=== PATIENT | male | born 1950 | race Caucasian/White ===

== ENCOUNTER 2024-01-15 09:45 | Emergency (ER) | payer MEDICARE, SELFPAY ==
--- NOTE | ~2024-01-15 | CT_ITS ---
EXAMINATION: CT head/brain wo IV con CLINICAL INFORMATION: Reason for Exam dizziness, vomiting COMPARISON: None available TECHNIQUE: Contiguous axial imaging was performed from the skull base to vertex without intravenous contrast. Sagittal and coronal reformatted images were obtained. This CT examination was performed using dose optimization techniques as appropriate, variously including the following: * Automated exposure control * Adjustment of mA and/or kV according to patient size (this includes techniques or standardized protocols for targeted exams where dose is matched to indication/reason for exam; i.e. extremities or head) Use of iterative reconstruction technique DLP: 735.4 mGy-cm mGy-cm FINDINGS: There is no evidence of acute intracranial hemorrhage. No mass-effect or ventricular shift is noted. No acute, territorial loss of parikh-white differentiation. Hypodensity along the left caudate head, likely chronic area of lacunar infarction. The ventricles and sulci are appropriate in size and configuration for the patient's stated age. Periventricular and subcortical white matter hypodensity is nonspecific but likely represents chronic microvascular ischemic change. No depressed calvarial fracture. Polypoid mucosal thickening throughout the partially visualized paranasal sinuses. The mastoid air cells are clear. CT/CT head/brain wo IV con IMPRESSION: No acute intracranial hemorrhage or territorial loss of parikh-white differentiation. Hypodensity/cystic focus along the left caudate head is indeterminate but may represent a chronic area of lacunar infarction with cystic encephalomalacia.
--- NOTE | ~2024-01-15 | CT_ITS ---
EXAMINATION: CT ABDOMEN AND PELVIS WITH CONTRAST CLINICAL INFORMATION: Intractable vomiting COMPARISON: None available. TECHNIQUE: Multidetector volumetric images were obtained from the superior aspect of the liver through the pubic symphysis following administration 85 mL of Omnipaque 350 intravenous contrast. Sagittal and coronal reformatted images were obtained on the technologist's workstation. Oral contrast: Yes This CT examination was performed using dose optimization techniques as appropriate, variously including the following: *Automated exposure control *Adjustment of mA and/or kV according to patient size (this includes techniques or standardized protocols for targeted exams where dose is matched to indication/reason for exam; i.e. extremities or head) *Use of iterative reconstruction technique DLP: 794 mGy-cm FINDINGS: LUNG BASES: The visualized lung bases are unremarkable. LIVER, GALLBLADDER, AND BILIARY TREE: Fatty enlarged liver. No focal liver lesion. Liver normal in contour. No biliary duct dilatation. Gallstone. Bladder otherwise normal. PANCREAS: Unremarkable. SPLEEN: Unremarkable. ADRENAL GLANDS: Unremarkable. KIDNEYS AND URETERS: The kidneys are normal in size, shape, and attenuation. No hydronephrosis, hydroureter, or calculi seen. Bilateral renal cysts. No imaging follow-up recommended. No perinephric stranding. BLADDER: Unremarkable. GASTROINTESTINAL TRACT: Mild diverticulosis of the colon. No evidence of diverticulitis. The small and large bowel are unremarkable. The appendix is unremarkable. The stomach is normal. There is question mild wall thickening of the distal thoracic esophagus. ABDOMINAL WALL: Left inguinal hernia containing fat. LYMPH NODES: Normal. VASCULAR: Unremarkable. PELVIC VISCERA: Unremarkable. OSSEOUS STRUCTURES: Degenerative changes of the spine and hip joints. CT/CT abdomen pelvis w IV con IMPRESSION: Question mild wall thickening of the distal thoracic esophagus. Diverticulosis of the colon. No evidence of diverticulitis. Enlarged fatty liver. Gallstone. Left inguinal hernia containing fat. Fleischner guidelines were followed.
[2024-01-15 09:46] VITALS: BP 172/98; PULSE 84; O2SAT 94
[2024-01-15 09:56] VITALS: BP 160/52; PULSE 60; RESP 19; TEMP 36.6; O2SAT 94; BMI 34.5
--- NOTE | 2024-01-15 10:03 | ECG_ITS ---
Test Reason : abd pain Blood Pressure : / mmHG Vent. Rate : 056 BPM Atrial Rate : 056 BPM P-R Int : 170 ms QRS Dur : 098 ms QT Int : 456 ms P-R-T Axes : 029 024 041 degrees QTc Int : 440 ms Sinus bradycardia Otherwise normal ECG No previous ECGs available Referred By: Sherita Barnes Electronically Signed By:ELVIA RENAE MD
[2024-01-15] MEDS: ondansetron HCL 4 MG/2 ML VIAL IVPUSH (10:11)
[2024-01-15 10:17] LABS: MANUAL DIFF FLAG NO
[2024-01-15 10:18] LABS: Hematocrit 36.4 % (42.0-52.0); Hemoglobin 12.4 g/dl (14.0-18.0); Mean Corpuscular HGB Conc 34.1 g/dl (31.0-36.0); Mean Corpuscular Hemoglobin 28.3 pg (27.0-33.0); Mean Corpuscular Volume 83.1 fL (80.0-98.0); Red Blood Count 4.38 X10*6/uL (4.60-5.80); White Blood Count 7.1 X10*3/uL (4.8-10.8)
[2024-01-15 10:19] LABS: Basophils Percent Auto 0.6 % (0-2); Eosinophils Absolute Auto 0.2 X10*3/uL (0.0-0.4); Eosinophils Percent Auto 2.8 % (0-4); Imm Gran Abs Auto 0.06 X10*3/uL (0.00-0.03); Imm Gran Pct Auto 0.8 % (0.0-0.4); Mean Platelet Volume 10.8 fL (9.4-12.4); Monocytes Absolute Auto 0.6 X10*3/uL (0.1-1.2); Monocytes Percent Auto 7.9 % (2-11); Neutrophils Absolute Auto 4.3 x10*3/uL (2.0-8.3); Neutrophils Percent Auto 59.9 % (45-73); Platelet Count 209 X10*3/uL (160-400); Red Cell Distribution Width 13.2 % (11.0-16.0)
[2024-01-15] MEDS: 0.9 % Sodium Chloride 1,000 ML 999 ML IV (10:19)
[2024-01-15 10:31] LABS: INTERNATIONAL NORM RATIO 0.9 (0.9-1.1); Prothrombin Time 11.4 SEC (11.1-13.3)
--- NOTE | 2024-01-15 10:35 | ED_ITS ---
HPI - Nausea/Vomiting/Diarrhea General Chief complaint: Nausea/Vomiting/Diarrhea Stated complaint: VOMITING, COMING FROM [facility] PER EMS Time Seen by Provider: 01/15/24 10:04 Source: patient, family and EMS Limitations: no limitations History of Present Illness HPI Narrative: Patient is a 73-year-old male who presents to the emergency department via EMS with his at bedside. Reportedly 1 hour prior to arrival he began feeling nauseous and having multiple episodes of vomiting while at conf[employer]ian[employer]. He reports 6-8 episodes of emesis with his food from breakfast denies any hematemesis. Denies recent ill symptoms or known sick contacts. Denies fevers, chills, chest pain, shortness of breath, abdominal pain, genitourinary symptoms, constipation. He reports a history of chronic loose watery diarrhea secondary to his iron that he takes for anemia and reports chronic black stools without any acute change. He denies any dizziness or lightheadedness. Related Data Previous Rx's ?Medication ?Instructions ?Recorded ondansetron 4 mg disintegrating 4 mg PO Q8H PRN nausea and 01/15/24 tablet vomiting #10 tabs Allergies Allergy/AdvReac Type Severity Reaction Status Date / Time No Known Allergies Allergy Verified 01/15/24 09:58 Review of Systems 2 Review of Systems: Yes all other systems are reviewed and are negative PMFSH Past Medical History Attestation statement: The following information was validated with the patient. Source: old records reviewed Social History Social History Smoked in Last 30 Days: No Use of substances other than those prescribed or required for medical reasons: No Advance Directives: No Advance Directives Information Provided: Yes Do you have a plan to hurt others: No Plan Physical Exam 2 Vital Signs: Vital Signs: Last Vital Signs Temp 98.5 F 01/15/24 14:14 Pulse 60 01/15/24 14:14 Resp 13 01/15/24 14:14 BP 136/52 L 01/15/24 14:14 Pulse Ox 97 01/15/24 14:14 O2 Del Method Room Air 01/15/24 14:14 BMI result Body Mass Index 34.5 Appearance: Alert.?Oriented to person, place and time. No acute distress.?Normal affect. Eyes: Pupils equal, round and reactive to light.? ENT: Pharynx normal.?? Neck: Normal inspection.? Neck supple.?? CVS: Heart sounds normal. Normal heart rate and rhythm.? Pulses normal.?? Respiratory: No respiratory distress.? Lung sounds clear to auscultation bilaterally?? Abdomen: Soft rounded and non-tender. Normoactive bowel sounds. No pulsatile mass.?? Skin: Skin warm and dry.? Normal skin color.? ? Extremities: No lower extremity edema.? Neuro: Moves all extremities spontaneously. Sensation intact bilaterally. Ambulates with normal steady gait. NIH Stroke Scale Time: 10:00 Level of Consciousness: Alert Level of Consciousness Questions: Answers both questions correctly Level of Consciousness Commands: Performs both tasks correctly Best Gaze: Normal Visual: No visual loss Facial Palsy: Normal Motor Arm (Right): No drift Motor Arm (Left): No drift Motor Leg (Right): No drift Motor Leg (Left): No drift Limb Ataxia: Absent Sensory: Normal Best Language: No aphasia Dysarthia: Normal Extinction and Inattention: No abnormality Score: 0 Course Reevaluation(s) Reevaluation #1: CT of the abdomen and pelvis with radiologist impression for question of mild wall thickening of the distal esophagus, diverticulosis but no diverticulitis, fatty liver, cholelithiasis, and left inguinal hernia containing fat. Reviewed with ED attending Dr. Mann regarding concern for possible esophagitis, at this time patient is asymptomatic, admits to infrequent acid reflux, he did however have multiple episodes of vomiting prior to arrival which may have resulted in these findings. Earlier he declined dizziness, however now endorsing significant dizziness as the onset of symptoms followed by multiple episodes of emesis. Reports this was worse with his eyes open with position changing. Reports a history of vertigo for which he has taken meclizine in the past. He has also been experiencing gradually progressive hearing loss for which she is being evaluated outpatient with a specialist. Symptoms have completely resolved at this time. concern for possible posterior circulation stroke/TIA versus BPPV. Obtaining CT of the head for further evaluation as recommended by ED attending Dr. Mann to rule out central causes. Time: 13:09 Reevaluation #2: CT head without acute intracranial hemorrhage. Hypodensity/cystic focus along the left caudate head indeterminate but may represent chronic lacunar infarct cystic encephalomalacia. I reviewed these findings with ED attending Dr. Mann, who recommends admission for further evaluation concern for TIA/ cerebellar stroke Time: 16:41 Reevaluation #3: Evaluated by Dr. Garcia, hospitalist, does not feel as though patient requires inpatient admission. Patient is requesting to be discharged at this time. Will discharge home, discussed strict return precautions, outpatient follow-up with his primary care provider. All questions were answered. He has ambulatory with a steady gait, has had no further symptoms. Time: 17:13 Medications Administered Discontinued Medications Generic Name Dose Route Start Last Admin Trade Name Foster PRN Reason Stop Dose Admin Sodium Chloride 1,000 mls @ 999 mls/hr 01/15/24 10:15 01/15/24 11:48 Ns IV 01/15/24 11:15 Infused .Q1H1M HOLA Infusion Iohexol 100 ml 01/15/24 11:39 01/15/24 11:39 Iohexol 350 Mg/Ml 100 Ml Infus..Btl IV 01/15/24 11:40 85 ml ONCE ONE Administration Ondansetron HCl 4 mg 01/15/24 10:07 01/15/24 10:11 Ondansetron Hcl 4 Mg/2 Ml Vial IVPUSH 01/15/24 10:08 4 mg ONCE ONE Administration Medical Decision Making Medical Decision Making [facility] Narrative: Patient is a 73-year-old male with reported past medical history of anemia, hypertension, diabetes presenting to emergency department for evaluation of acute onset nausea and vomiting, reporting 6-8 episodes of emesis within 1 hour. Patient's states that he has been generally weak over the past few weeks, patient denies concern for weakness. Overall he appears well, nontoxic, afebrile he is without tachycardia tachypnea or hypoxia. His abdomen is rounded but it is soft, has normoactive bowel sounds, no tenderness upon palpation. No rigidity or guarding. Will obtain CBC to evaluate for leukocytosis/ anemia, CMP and lipase to evaluate for abnormal electrolytes /abnormal renal function/ abnormal hepatic/biliary function, EKG and troponin to evaluate for ischemia/ACS. CT of the abdomen and pelvis, and Urinalysis. Differential Diagnosis Differential Diagnoses: The differential diagnosis associated with the presentation includes (Gastroenteritis, cholecystitis, pancreatitis, viral syndrome, SBO) Admission/Observation Consideration of admission/observation: Escalation of care including admission/observation considered Lab Data [facility] Lab Attestation statement: I reviewed the patient's lab results. CBC is without leukocytosis, mild normocytic anemia that does not meet transfusion criteria. No electrolyte derangement. BUN mildly elevated at 22 with creatinine 1.13, no baseline available for comparison. Non-anion gap hyperglycemia with random glucose of 207. LFTs and lipase are within normal range. 01/15/24 10:07 01/15/24 10:07 Labs: Lab Results 01/15/24 01/15/24 01/15/24 Range/Units 10:07 10:36 12:09 WBC 7.1 (4.8-10.8) X10*3/uL RBC 4.38 L (4.60-5.80) X10*6/uL Hgb 12.4 L (14.0-18.0) g/dl Hct 36.4 L (42.0-52.0) % MCV 83.1 (80.0-98.0) fL MCH 28.3 (27.0-33.0) pg MCHC 34.1 (31.0-36.0) g/dl RDW 13.2 (11.0-16.0) % Plt Count 209 (160-400) X10*3/uL MPV 10.8 (9.4-12.4) fL Immature Gran % (Auto) 0.8 H (0.0-0.4) % Neut % (Auto) 59.9 (45-73) % Lymph % (Auto) 28.0 (20-40) % [place] % (Auto) 7.9 (2-11) % Eos % (Auto) 2.8 (0-4) % Baso % (Auto) 0.6 (0-2) % Lymph # (Auto) 2.0 (1.2-4.9) X10*3/uL [place] # (Auto) 0.6 (0.1-1.2) X10*3/uL Eos # (Auto) 0.2 (0.0-0.4) X10*3/uL Baso # (Auto) 0.0 (0.0-0.2) X10*3/uL Abs Immat Gran (auto) 0.06 H (0.00-0.03) X10*3/uL Absolute Neuts (auto) 4.3 (2.0-8.3) x10*3/uL Absolute Nucleated RBC 0.000 (0.0-0.012) X10*3/uL Nucleated RBC % (auto) 0.0 (0.0-0.2) /100WBC PT 11.4 (11.1-13.3) SEC INR 0.9 (0.9-1.1) Sodium 139 (135-145) mmol/L Potassium 3.7 (3.3-5.1) mmol/L Chloride 102 (96-108) mmol/L Carbon Dioxide 26 (22-29) mmol/L Anion Gap 15 (12-20) BUN 22 H (9-16) mg/dL Creatinine 1.13 (0.5-1.4) mg/dL Estim Creat Clear Calc 73.0 Estimated GFR > 60 POC Glucose 138 H (60-115) mg/dL Random Glucose 207 H (60-115) mg/dL Calcium 10.1 (8.4-10.2) mg/dL Total Bilirubin 0.6 (0.0-1.0) mg/dL Direct Bilirubin 0.2 (0.0-0.5) mg/dL AST 17 (5-37) U/L ALT 15 (0-40) U/L Alkaline Phosphatase 43 (39-117) U/L Troponin I High Sens < 2.7 (<3.5-35.0) ng/L Total Protein 7.4 (6.5-8.0) g/dL Albumin 4.4 (3.5-5.0) g/dL Lipase 20 (8-78) U/L Influenza Type A (PCR) NEGATIVE (Negative) Influenza Type B (PCR) NEGATIVE (Negative) RSV RNA Qual (PCR) NEGATIVE (Negative) SARS-CoV-2 RNA (RT-PCR) NEGATIVE (Negative) Independent Interpretation I performed an independent interpretation of an: EKG Interpretation: Rate: 56 Rhythm:? Sinus bradycardia Normal P waves.? Normal ERICKSON.?? Normal QRS complex.?? ST T wave :??No ST elevation, anterolateral J-point elevation qTC:440 prior studies:? No prior available for review The study has been interpreted contemporaneously by me. Radiology Impression Discussion of test interpretation with radiology: I have reviewed the radiologist's reading. Radiologist Impression: CT/CT abdomen pelvis w IV con IMPRESSION: Question mild wall thickening of the distal thoracic esophagus. Diverticulosis of the colon. No evidence of diverticulitis. Enlarged fatty liver. Gallstone. Left inguinal hernia containing fat. CT/CT head/brain wo IV con IMPRESSION: No acute intracranial hemorrhage or territorial loss of parikh-white differentiation. Hypodensity/cystic focus along the left caudate head is indeterminate but may represent a chronic area of lacunar infarction with cystic encephalomalacia. Independent Historian Clinical information obtained from an independent historian. History obtained from or confirmed by: Spouse and EMS Discharge Plan Discharge Clinical Impression: Dizziness Patient Disposition: Home, Self-Care Additional Instructions: As discussed, your symptoms today are concerning for likely vertigo. Use your meclizine as previously prescribed as needed for dizziness. Zofran as needed for nausea/vomiting. Return back to emergency department any new or worsening symptoms or concerns including persistent dizziness, near passing out or passing out, lightheadedness, chest pain, shortness of breath, difficulty breathing, intractable vomiting, numbness or tingling of the extremities, slurred speech, confusion, weakness. Prescriptions: New ondansetron 4 mg tablet,disintegrating 4 mg PO Q8H PRN (Reason: nausea and vomiting) Qty: 10 0RF Referrals: Physician,Unknown J [Primary Care Provider] - Print Language: Bolivian
[2024-01-15 10:43] LABS: Alanine Aminotransferase 15 U/L (0-40); Albumin Level 4.4 g/dL (3.5-5.0); Alkaline Phosphatase 43 U/L (39-117); Anion Gap 15 (12-20); Aspartate Amino Transferase 17 U/L (5-37); Bilirubin Direct 0.2 mg/dL (0.0-0.5); Bilirubin Total 0.6 mg/dL (0.0-1.0); Blood Urea Nitrogen 22 mg/dL (9-16); Calcium 10.1 mg/dL (8.4-10.2); Carbon Dioxide 26 mmol/L (22-29); Chloride 102 mmol/L (96-108); Estimated Glomerular Filt Rate > 60; Glucose Random 207 mg/dL (60-115); Lipase 20 U/L (8-78); Potassium 3.7 mmol/L (3.3-5.1); Sodium 139 mmol/L (135-145); Total Protein 7.4 g/dL (6.5-8.0)
[2024-01-15 10:58] VITALS: BP 127/45; PULSE 59; RESP 17; TEMP 36.5
[2024-01-15 11:18] LABS: Influenza A PCR NEGATIVE (Negative); Influenza B PCR NEGATIVE (Negative); Resp Syncy Virus RNA Qual PCR NEGATIVE (Negative); SARS COV2 PCR INHOUSE NEGATIVE (Negative)
[2024-01-15] MEDS: iohexoL 350 MG/ML 100 ML INFUS..BTL IV (11:39)
--- NOTE | 2024-01-15 12:01 | PC.NURSE ---
Assumed care of this patient at 1100, patient feeling much better resting quietly on stretcher at this time, waiting for CT scan results, states he ate a large breakfast earlier this am with possibly undercooked potatoes, was washing his car and suddenly became N/V.
[2024-01-15 12:13] LABS: Glucose, Whole Blood 138 mg/dL (60-115)
--- NOTE | 2024-01-15 12:14 | MHC.EDTECH ---
POC completed. Result 138 reported to BAYRON Spaulding.
--- NOTE | 2024-01-15 12:44 | PC.NURSE ---
Trop level pending for some time, called lab to confirm lab was processing, lab confirmed sample is processing.
--- NOTE | 2024-01-15 13:25 | PC.NURSE ---
Called lab again regarding patient's trop level not resulting, spoke to Lakisha, stated trop had not been running, will be processed now and should result in 20 minutes.
[2024-01-15 13:44] LABS: Troponin-I High Sensitivity < 2.7 ng/L (<3.5-35.0)
[2024-01-15 13:52] VITALS: BP 127/46; PULSE 58; RESP 14; O2SAT 98
[2024-01-15 14:14] VITALS: BP 136/52; PULSE 60; RESP 13; TEMP 36.9; O2SAT 97
[2024-01-15 17:29] VITALS: BP 119/50; PULSE 58; RESP 16; TEMP 36.7; O2SAT 95
== END 2024-01-15 17:31 | disposition home or self-care (01) ==
PROVIDERS: Nurse Practitioner Family; Emergency Provider Emergency Medicine
DX: R11.2 Nausea with vomiting, unspecified (principal); R42 Dizziness and giddiness; I10 Essential (primary) hypertension; E11.9 Type 2 diabetes mellitus without complications; D64.9 Anemia, unspecified; Z03.818 Encounter for observation for suspected exposure to other biological agents ruled out
CPT/HCPCS: 0241U; 36415; 70450; 74177; 80048; 80076; 82947; 83690; 84484; 85025; 85610; 93005; 96361; 96374; 99284; 99285; J2405; Q9967

== ENCOUNTER → 2024-01-15 10:03 | Outpatient (BNV) | payer MEDICARE, SELFPAY | PROVIDERS: Emergency Provider Emergency Medicine; Visit Provider Internal Medicine Cardiovascular Disease | DX: R00.1 Bradycardia, unspecified (principal) | CPT/HCPCS: 93010 ==

== ENCOUNTER 2024-03-09 13:42 | Emergency (ER) | payer MEDICARE, SELFPAY ==
[2024-03-09 13:54] VITALS: BP 172/92; PULSE 72; O2SAT 98
[2024-03-09 14:00] VITALS: BP 125/70; PULSE 59; RESP 14; TEMP 36.9; O2SAT 98
[2024-03-09 14:07] VITALS: BP 125/70; PULSE 52; RESP 16; TEMP 36.8; O2SAT 98; BMI 35.0
--- NOTE | 2024-03-09 14:25 | ECG_ITS ---
Test Reason : DIZZINESS Blood Pressure : / mmHG Vent. Rate : 049 BPM Atrial Rate : 049 BPM P-R Int : 186 ms QRS Dur : 100 ms QT Int : 436 ms P-R-T Axes : 026 037 049 degrees QTc Int : 393 ms Sinus bradycardia Normal ECG When compared with ECG of 15-JAN-2024 10:24, No significant change was found Referred By: Jesusita Pinto Electronically Signed By:KENDAL PATINO
[2024-03-09 14:41] LABS: MANUAL DIFF FLAG NO
[2024-03-09 14:45] VITALS: BP 117/55; PULSE 52; RESP 14; O2SAT 96
[2024-03-09] MEDS: ondansetron HCL 4 MG/2 ML VIAL IVPUSH (14:45)
[2024-03-09] MEDS: Meclizine HCl 25 MG TABLET PO (14:45)
[2024-03-09 14:47] LABS: Basophils Absolute Auto 0.1 X10*3/uL (0.0-0.2); Basophils Percent Auto 0.8 % (0-2); Eosinophils Absolute Auto 0.2 X10*3/uL (0.0-0.4); Hematocrit 36.7 % (42.0-52.0); Hemoglobin 12.6 g/dl (14.0-18.0); Imm Gran Abs Auto 0.05 X10*3/uL (0.00-0.03); Imm Gran Pct Auto 0.7 % (0.0-0.4); Lymphocytes Absolute Auto 2.5 X10*3/uL (1.2-4.9); Lymphocytes Percent Auto 35.3 % (20-40); Mean Corpuscular HGB Conc 34.3 g/dl (31.0-36.0); Mean Corpuscular Hemoglobin 28.6 pg (27.0-33.0); Mean Corpuscular Volume 83.4 fL (80.0-98.0); Monocytes Absolute Auto 0.7 X10*3/uL (0.1-1.2); Monocytes Percent Auto 9.6 % (2-11); Neutrophils Absolute Auto 3.6 x10*3/uL (2.0-8.3); Neutrophils Percent Auto 50.6 % (45-73); Platelet Count 196 X10*3/uL (160-400); Red Cell Distribution Width 13.2 % (11.0-16.0); White Blood Count 7.1 X10*3/uL (4.8-10.8)
--- NOTE | 2024-03-09 14:54 | ED.DIZZY ---
HPI - Dizziness General Chief Complaint: Dizziness Stated Complaint: NAUSEA VOMITING UNSTEADY GAIT Time Seen by Provider: 03/09/24 13:54 Source: patient and old records reviewed Mode of arrival: EMS Limitations: no limitations History of Present Illness ED Provider: QUIANA HARRIS Narrative: 74 yo male with PMH of vertigo seen for same in past with negative work up has chronic L hearing loss left ear - presents again today with typical start of lightheadedness then starts to feel very dizzy with nausea. He just had CT head for same January 2024. He denies CP/SOB. He has appointment with ENT next . He notes zofran and meclizine helps him in combination. MD elicited complaint: dizziness Pertinent past history: BPPV Onset (ago): hour(s) (1) Timing: sudden onset Severity: mild Description: lightheadedness Context: change in body position History of similar symptoms: Yes Exacerbating factors: movement/ambulation and change in body position Relieving factors: remaining still and keeping eyes closed Associated symptoms: nausea Related Data Previous Rx's ?Medication ?Instructions ?Recorded ondansetron 4 mg disintegrating 4 mg PO Q8H PRN nausea and 01/15/24 tablet vomiting #10 tabs lorazepam 1 mg tablet (Ativan) 1 mg PO DAILY PRN nausea and 03/09/24 vomiting #10 tabs meclizine 25 mg tablet 25 mg PO TID PRN dizziness #60 tabs 03/09/24 ondansetron 4 mg disintegrating 4 mg PO Q8H PRN nausea and 03/09/24 tablet vomiting #20 tabs Allergies Allergy/AdvReac Type Severity Reaction Status Date / Time No Known Allergies Allergy Verified 03/09/24 14:08 Review of Systems Review of Systems: Constitutional : No Fever, No Chills, No Fatigue ENT/Mouth : No sore throat, No Rhinorrhea Eyes: No Eye Pain, No Swelling, No Redness Cardiovascular : No Chest Pain, No SOB, No Dyspnea on Exertion Respiratory : No Cough, No Sputum Gastrointestinal : pos Nausea, No Vomiting, No Diarrhea, No abdominal Pain Genitourinary : No Dysuria, No Urinary Frequency, No Hematuria, Musculoskeletal : No joint pain, No Myalgias, No Joint Swelling Skin : No Skin Lesions, No rash Neuro : No Weakness, No Numbness, pos Dizziness, no Headache Psych : No Anxiety/Panic, No Depression All other systems reviewed and are negative [facility] Past Medical History Attestation statement: The following information was validated with the patient. Source: old records reviewed Medical History Vertigo Social History Social History Smoked in Last 30 Days: No Use of substances other than those prescribed or required for medical reasons: No Advance Directives: No Advance Directives Information Provided: Yes Do you have a plan to hurt others: No Plan Physical Exam Vital Signs: Vital Signs: Last Vital Signs Temp 98.3 F 03/09/24 14:07 Pulse 52 03/09/24 14:45 Resp 14 03/09/24 14:45 BP 117/55 L 03/09/24 14:45 Pulse Ox 96 03/09/24 14:45 O2 Del Method Room Air 03/09/24 14:45 BMI result Body Mass Index 35.0 Appearance: Alert. Oriented X3. No acute distress. Eyes: Pupils equal, round and reactive to light. ENT: Pharynx normal. TMs normal bilaterally Neck: Normal inspection. Neck supple. CVS: Normal heart rate and rhythm. Pulses normal. Respiratory: No respiratory distress. Breath sounds normal. Abdomen: Soft and non-tender. Skin: Skin warm and dry. Normal skin color. Normal skin turgor. Extremities: No lower extremity edema. No calf ttp Neuro: Oriented X 3. No motor deficit. No sensory deficit. Medications Administered Discontinued Medications Generic Name Dose Route Start Last Admin Trade Name Freq PRN Reason Stop Dose Admin Meclizine HCl 25 mg 03/09/24 14:25 03/09/24 14:45 Meclizine Hcl 25 Mg Tablet PO 03/09/24 14:26 25 mg ONCE ONE Administration Ondansetron HCl 4 mg 03/09/24 14:25 03/09/24 14:45 Ondansetron Hcl 4 Mg/2 Ml Vial IVPUSH 03/09/24 14:26 4 mg ONCE ONE Administration Medical Decision Making Medical Decision Making [facility] Narrative: 74 yo male with PMH of vertigo here with typical bout c/o nausea and feeling lightheaded has no focal deficits no CP/SOB no other neuro symptoms at this time EKG, basic labs, IV zofran and meclizine. Doubt posterior stroke given on other symptoms and similar work up in past - just had CT scan with likely old stroke Differential Diagnosis Differential Diagnoses: The differential diagnosis associated with the presentation includes vertigo - longstanding hx of same in past worse with movements seems more peripheral Admission/Observation Consideration of admission/observation: Escalation of care including admission/observation considered feels better stable for DC Lab Data [facility]DM Lab Attestation statement: I reviewed the patient's lab results. 03/09/24 14:37 03/09/24 14:59 Labs: Lab Results 03/09/24 03/09/24 Range/Units 14:37 14:59 WBC 7.1 (4.8-10.8) X10*3/uL RBC 4.40 L (4.60-5.80) X10*6/uL Hgb 12.6 L (14.0-18.0) g/dl Hct 36.7 L (42.0-52.0) % MCV 83.4 (80.0-98.0) fL MCH 28.6 (27.0-33.0) pg MCHC 34.3 (31.0-36.0) g/dl RDW 13.2 (11.0-16.0) % Plt Count 196 (160-400) X10*3/uL MPV 12.0 (9.4-12.4) fL Immature Gran % (Auto) 0.7 H (0.0-0.4) % Neut % (Auto) 50.6 (45-73) % Lymph % (Auto) 35.3 (20-40) % [place] % (Auto) 9.6 (2-11) % Eos % (Auto) 3.0 (0-4) % Baso % (Auto) 0.8 (0-2) % Lymph # (Auto) 2.5 (1.2-4.9) X10*3/uL [place] # (Auto) 0.7 (0.1-1.2) X10*3/uL Eos # (Auto) 0.2 (0.0-0.4) X10*3/uL Baso # (Auto) 0.1 (0.0-0.2) X10*3/uL Abs Immat Gran (auto) 0.05 H (0.00-0.03) X10*3/uL Absolute Neuts (auto) 3.6 (2.0-8.3) x10*3/uL Absolute Nucleated RBC 0.000 (0.0-0.012) X10*3/uL Nucleated RBC % (auto) 0.0 (0.0-0.2) /100WBC Sodium 140 (135-145) mmol/L Potassium 3.7 (3.3-5.1) mmol/L Chloride 104 (96-108) mmol/L Carbon Dioxide 26 (22-29) mmol/L Anion Gap 14 (12-20) BUN 25 H (9-16) mg/dL Creatinine 1.09 (0.5-1.4) mg/dL Estim Creat Clear Calc 75.1 Estimated GFR > 60 Random Glucose 112 (60-115) mg/dL Calcium 10.0 (8.4-10.2) mg/dL Troponin I High Sens < 2.7 (<3.5-35.0) ng/L Independent Interpretation I performed an independent interpretation of an: EKG Interpretation: Rate: 49 Rhythm: sinus bradycardia [place]: normal Normal P waves. Normal ERICKSON. Normal QRS complex. ST T wave : normal no MARISABEL qTC: 419 prior studies: hx of bradycardia in the past The study has been interpreted contemporaneously by me. . Independent Historian Clinical information obtained from an independent historian. History obtained from or confirmed by: Spouse and EMS External Record Review External record reviewed: Inpatient record Prescription Management I considered prescription management with: Other Discharge Plan Discharge Clinical Impression: Dizziness Patient Disposition: Home, Self-Care Instructions: Dizziness (ED) Additional Instructions: take meclizine in AM for next 5 days then as needed zofran can be taken daily as well return for worsening symptoms or concerns consider our physical therapy department may need referral from PCP take the ativan if no improvement from other medications and severe [phone] physical therapy at [facility] Prescriptions: New meclizine 25 mg tablet 25 mg PO TID PRN (Reason: dizziness) Qty: 60 1RF ondansetron 4 mg tablet,disintegrating 4 mg PO Q8H PRN (Reason: nausea and vomiting) Qty: 20 1RF lorazepam [Ativan] 1 mg tablet 1 mg PO DAILY PRN (Reason: nausea and vomiting) Qty: 10 0RF No Action ondansetron 4 mg tablet,disintegrating 4 mg PO Q8H PRN (Reason: nausea and vomiting) Qty: 10 0RF Print Language: [place]
[2024-03-09 15:02] LABS: Troponin-I High Sensitivity < 2.7 ng/L (<3.5-35.0)
[2024-03-09 15:18] LABS: Anion Gap 14 (12-20); Blood Urea Nitrogen 25 mg/dL (9-16); Carbon Dioxide 26 mmol/L (22-29); Chloride 104 mmol/L (96-108); Creatinine Clr Calc Pharmacy 75.1; Estimated Glomerular Filt Rate > 60; Glucose Random 112 mg/dL (60-115); Potassium 3.7 mmol/L (3.3-5.1); Sodium 140 mmol/L (135-145)
[2024-03-09 16:05] VITALS: BP 123/49; PULSE 63; RESP 19
[2024-03-09 16:13] VITALS: BP 123/49; PULSE 63; RESP 19; TEMP 36.8; O2SAT 96
== END 2024-03-09 16:14 | disposition home or self-care (01) ==
PROVIDERS: Emergency Provider Emergency Medicine; PCP Internal Medicine
DX: R42 Dizziness and giddiness (principal); R11.0 Nausea
CPT/HCPCS: 36415; 80048; 84484; 85025; 93005; 96374; 99284; J2405

== ENCOUNTER → 2024-03-09 14:25 | Outpatient (BNV) | payer MEDICARE, SELFPAY | PROVIDERS: Emergency Provider Emergency Medicine; PCP Internal Medicine; Visit Provider Internal Medicine | DX: R42 Dizziness and giddiness (principal); R00.1 Bradycardia, unspecified | CPT/HCPCS: 93010 ==

== ENCOUNTER 2024-10-22 06:29 | Emergency (ER) | payer MEDICARE, SELFPAY ==
--- NOTE | 2024-10-22 | ECG_ITS ---
Test Reason : dizziness Blood Pressure : */* mmHG Vent. Rate : 60 BPM Atrial Rate : 60 BPM P-R Int : 180 ms QRS Dur : 100 ms QT Int : 434 ms P-R-T Axes : 40 39 39 degrees QTcB Int : 434 ms Normal sinus rhythm Normal EKG When compared with ECG of 09-Mar-2024 14:37, No significant change was found Referred By: Generic ED Physician Electronically Signed By: KENDAL PATINO
[2024-10-22 06:39] VITALS: BP 165/64; BP 176/78; PULSE 80; PULSE 96; RESP 18; TEMP 36.4; O2SAT 98; O2SAT 99; BMI 34.4
--- OUTSIDE RECORDS SUMMARY | 2024-10-22 06:45 | XMS_ITS | Patient Health Record ---
Author Organization [facility] Address [address] [facility] [address] [place] [address] Care Team Providers Care Stone Grader Name Role Phone Divya Dan Primary Care Provider NADIA Graham Unavailable [phone] Allergies No Known Allergies Reason For Referral No Information Medications Medication SIG (Take, Route, Frequency, Duration) Notes Start Date End Date Status metFORMIN HCl 850 MG 1 tablet with a mara l Orally Once a day Active Atorvastatin Calcium 40 MG 1 tablet Orally Once a day Active Chlorthalidone 25 MG 1 tablet in the morning with food Orally Active Lisinopril 40 MG 1 tablet Orally Once a day Active amLODIPine Besylate 10 MG 1 tablet Orally Once a day Active Meclizine HCl 25 MG 1 tablet as needed Orally every 12 hrs Active Aspirin 81 MG 1 capsule Orally Onc e a day Active Glimepiride 1 MG 1 tablet with breakfast or the first main meal of the day Orally Once a day Active Lantus SoloStar 100 UNIT/ML as directed Subcutaneous 80 units Active Fenofibrate 134 MG 1 capsule with a mara l Orally Once a day Active Ferrous Sulfate 325 (65 Fe) MG 1 tablet Orally Three times a Week Active Pantoprazole Sodium 40 MG 1 tablet 1/2 to 1 hour before morning meal Orally Once a day Not-Taking Eligen B12 1000 mcg Not-Takin g Sertraline HCl 100 MG 1 tablet Orally On ce a day Active Farxiga 5 MG 1 tablet Orally Once a day Active Metoprolol Succinate ER 50 MG 1 tablet Orally Once a day Active Nystatin 349750 UNIT 1 tablet Orally Thr ee times a day Active Doxycycline Monohydrate 100 MG 1 tablet Orally Once a day Not-Taking Problems Problem Type SNOMED Code ICD Code Onset Dates Problem Status W/U Status Risk Notes Problem 88472351 Type 2 diabetes mellitus with other circulatory complications (E11.59) Active confirmed Vital Signs Heart Rate 58 /min 07/16/2024 Temperature 97.4 degrees Fahrenheit 07/16/2024 Respiratory Rate 16 /min 07/16/2024 Height 5ft 10in in 07/16/2024 Weight 244.5 lbs 07/16/2024 BMI 35.08 kg/m2 07/16/2024 Encounters Encounter Location Date Provider Diagnosis [facility] [address] [address] 07/16/2024 NADIA RODRIGUEZ Ingrown right big toenail L60.0 ; Pain in right toe(s) M79.674 ; Onychomycosis B35.1 and Type 2 diabetes mellitus with other circulatory complications E11.59 [facility] [address] [address] 07/23/2024 NADIA RODRIGUEZ Assessments Encounter Date Diagnosis (ICD Code) Assessment Notes Treatment Notes Treatment Clinical Notes Section Notes 07/16/2024 Pain in right toe(s) (ICD-10 - M79.674) 07/16/2024 Ingrown right big toenail (ICD-10 - L60.0) This is an outpatient visit for evaluation and management of a new patient, which required appropriate review of pertinent medical history, review of any previous imaging, review of all previous records, and examination and decision-making. Time was 45 minutes spent in review of all these facets including face to face discussion with the patient regarding my findings and in discussion of a current and future treatment plan. I explained to the patient how ingrown toenails form: genetics, improper shoes, trauma, fungus. I reviewed with the patient proper nail care and how to conservatively treat ingrown toenails by cutting the nail straight across, massage the skin away from the edges of the nail, and to soak the feet daily. I explained that the ingrown toenail starts at the root and this is what needs to be removed to make the toenail grow back straight. I reviewed nail avulsions with the patient and also phenol/surgical matrixectomies. Discussed a partial nail avulsion procedure with the patient. The patient agreed to said procedure and consent was signed. As described above, a partial nail avulsion of the medial border of the right hallux toenail was performed. Pt tolerated well. Post-procedure instructions were given to the patient. They are to remove the initial bandage 24hrs after the procedure. Bacitracin and band-aid are to be applied to the toe for the next 7-14 days. Pt to return in 2 weeks for a follow-up to the procedure or if needed. 07/16/2024 Onychomycosis (ICD-10 - B35.1) I reviewed with the patient various treatment methods for toenail fungus including topical, oral, laser, and removal of the infected toenails. We discussed starting topical medication. I explained to the patient that a toenail takes about12 months to grow out completely, so they should start to slowly see results. I obtained a toenail biopsy to send for THAD, PAS stain, fungal culture from the right hallux toenail. We discussed there are both OTC treatments and prescription medication for the topical treatment of toenail fungus. Rx written for Urea 40% cream to apply to the toenails daily for thickness. 07/16/2024 Type 2 diabetes mellitus with other circulatory complications (ICD-10 - E11.59) Discussed with patient regarding proper glucose control, exercise, and diet. Explained to patient proper shoe gear, and importance of daily foot checks. I reviewed neuropathy and why it occurs in diabetics. I educated the patient on proper blood sugar control and the importance of an HgBA1c of less than 7.0%. I reviewed the signs and symptoms of neuropathy with the patient. Plan Of Treatment No Information Insurance Providers Payer Name Payer Address Payer Phone Subscriber Number Group Number Insured Name Patient Relationship to Insured Coverage Start Date Coverage End Date [employer] [address] [facility] [address] [place] [phone] [id number] Abiodun Banerjee Self - patient is the insured Medical (General) History Medical History History ICD Code aneurysm, thoracic aortic anxiety calculus of gallbladder without cholecys titis without obstruction chronic vertigo diabetes mellitus type 2 with peripheral artery disease diabetes with retinopathy erectile dysfunction fatty liver disease, nonalcoholic former tobacco user generalized OA GERD (gastroesophageal reflux disease) hypercholesteremia hypertension associated with diabetes IBS (irritable bowel syndrome) Left inguinal hernia mild depresison nuclear sclerosis of both eyes Obese class 1 TOÑO (obstructive sleep apnea) - on CPAP Renal cyst S/P knee replacement uncontrolled diabetes mellit us w/ hyperglycemia, w/ long-term current use of insulin venous insufficiency COVID vaccinated X 3 (Moderna) Surgical History Surgery Date(Month/Year) colonoscopy 05/03 Endoscopy of upper gastrointestinal trac t 12/01 colonoscopy 05/22 knee arthroplasty tonsillectomy left knee replacement Hospitalization History Reason Date(Month/Year) left knee replacement
--- OUTSIDE RECORDS SUMMARY | 2024-10-22 06:45 | XMS_ITS ---
Author Organization [facility] Address [address] [facility] [address] [place] [address] Care Team Providers Care Fertilizer Mixer Name Role Phone Divya Dan Primary Care Provider TANGELA Graham Unavailable [phone] Allergies No Known Allergies REASON FOR VISIT NEW PATIENT- Rt foot great toenail ingrown Medications Medication SIG (Take, Route, Frequency, Duration) Notes Start Date End Date Status amLODIPine Besylate 10 MG 1 tablet Orally Once a day Active Pantoprazole Sodium 40 MG 1 tablet 1/2 to 1 hour before morning meal Orally Once a day Not-Taking Sertraline HCl 100 MG 1 tablet Orally On ce a day Active Metoprolol Succinate ER 50 MG 1 tablet Orally Once a day Active Nystatin 628934 UNIT 1 tablet Orally Thr ee times a day Active Atorvastatin Calcium 40 MG 1 tablet Orally Once a day Active Chlorthalidone 25 MG 1 tablet in the morning with food Orally Active Aspirin 81 MG 1 capsule Orally Onc e a day Active Eligen B12 1000 mcg Not-Takin g Doxycycline Monohydrate 100 MG 1 tablet Orally Once a day Not-Taking Glimepiride 1 MG 1 tablet with breakfast or the first main meal of the day Orally Once a day Active Lantus SoloStar 100 UNIT/ML as directed Subcutaneous 80 units Active Fenofibrate 134 MG 1 capsule with a mara l Orally Once a day Active Ferrous Sulfate 325 (65 Fe) MG 1 tablet Orally Three times a Week Active Farxiga 5 MG 1 tablet Orally Once a day Active metFORMIN HCl 850 MG 1 tablet with a mara l Orally Once a day Active Lisinopril 40 MG 1 tablet Orally Once a day Active Meclizine HCl 25 MG 1 tablet as needed Orally every 12 hrs Active Problems Problem Type SNOMED Code ICD Code Onset Dates Problem Status W/U Status Risk Notes Problem [id number] Type 2 diabetes mellitus with other circulatory complications (E11.59) Active confirmed Vital Signs Temperature 97.4 degrees Fahrenheit 07/16/20 24 Heart Rate 58 /min 07/16/2024 Respiratory Rate 16 /min 07/16/2024 Height 5ft 10in in 07/16/2024 Weight 244.5 lbs 07/16/2024 BMI 35.08 kg/m2 07/16/2024 Encounters Encounter Location Date Provider Diagnosis [facility] [address] [facility] [address] [place] [address] 07/16/2024 TANGELA ADAMS Ingrown right big toenail L60.0 ; Pain in right toe(s) M79.674 ; Onychomycosis B35.1 and Type 2 diabetes mellitus with other circulatory complications E11.59 Assessments Encounter Date Diagnosis (ICD Code) Assessment Notes Treatment Notes Treatment Clinical Notes Section Notes 07/16/2024 Ingrown right big toenail (ICD-10 - [...] to the procedure or if needed. 07/16/2024 Pain in right toe(s) (ICD-10 - M79.674) 07/16/2024 Onychomycosis (ICD-10 - B35.1) I reviewed [...] neuropathy with the patient. Plan Of Treatment Treatment Notes Assessment Notes Ingrown right big toenail This is an outpatient visit for evaluation [...] follow-up to the procedure or if needed. Onychomycosis I reviewed with the patient various treatment [...] apply to the toenails daily for thickness. Type 2 diabetes mellitus wit h other circulatory complications Discussed with patient regarding proper glucose control, exercise, and diet. Explained to patient proper shoe gear, and importance of daily foot checks. I reviewed neuropathy and why it occurs in diabetics. I educated the patient on proper blood sugar control and the importance of an HgBA1c of less than 7.0%. I reviewed the signs and symptoms of neuropathy with the patient. Next Appt Details Follow Up: 2 Weeks, Reason: Progress Notes * Abiodun BANERJEEDOB:1950 ([age] yo M)Acc No.[id number]:07/16/2024 Patient:?Abiodun BANERJEE Provider:?Tangela Adams DPM :1950???Age:74 Y???Sex:Male Dick e:07/16/2024 Phone: Address:[address] [place] [address], [id number] Pcp:Divya Dan Subjective: * Chief Complaints: * ???NEW PATIENT- Rt foot grea t toenail ingrown * HPI: ???Constitutional:? This 74 y/o diabetic male presents to my office with a complaint of a painful ingrown toenail of the right big toe and toenail fungus. He states the right big toe has been sore for many months. He states about 10 years ago, he had the toenail removed. He states the side of the nail has gotten thick and curved. He has pain when walking and wearing shoes. He has to wear wider shoes to help with the pain. He denies any infection in the toe. He also complains of thickening of the toenails on both feet. He states this makes them difficult to cut, and sometimes painful. He was placed on Nystatin for GI fungus, but has not seen improvement with the toenails. He has no other foot complaints this visit. His last hgba1c was 7.8%. Medical history and Allergies reviewed. * ROS:?GENERAL: Pt denies nausea, fever, vomiting, chills, or shortness of breath. Pt in NAD. ALLERGY: patient denies any new allergy HEME/ONC: patient denies any bleeding or clotting disorders CARDIOLOGY: pt denies chest pain, palpitations LUNGS: pt denies shortness of breath ABDOMEN: patient denies abdominal pain or swelling. Does have diarrhea. MUSCULOSKELETAL: See HPI, occasional joint pain SKIN: see HPI, otherwise no lesions, rash or itching NEURO: No persistent headache, weakness or numbness PSYCH: patient denies any current anxiety or depression The remainder of the review of systems is noncontributory. * Medical History:? * Surgical History:?colonoscop y 05/03Endoscopy of upper gastrointestinal tract 12/01colonoscopy 05/22knee arthroplasty tonsillectomy left knee replacement * Hospitalization/Major Diagno stic Procedure:?left knee replacement * Family History:?Father: dece ased, cancer of unknown origin.?Mother: , Diabetes mellitus, Lung cancer.?Siblings: , brother: prostate cancersister- anxietybrother-, alzheimer's, heart attack age 46.? * Social History:?tobacco: former smoker alcohol: no. * Medications:?TakingSertralin e HCl 100 MG Tablet 1 tablet Orally Once a day Nystatin 013017 UNIT Tablet 1 tablet Orally Three times a day Metoprolol Succinate ER 50 MG Tablet Extended Release 24 Hour 1 tablet Orally Once a day metFORMIN HCl 850 MG Tablet 1 tablet with a meal Orally Once a day Meclizine HCl 25 MG Tablet 1 tablet as needed Orally every 12 hrs Lisinopril 40 MG Tablet 1 tablet Orally Once a day Lantus SoloStar 100 UNIT/ML Solution Pen-injector as directed Subcutaneous , Notes to Pharmacist: 80 unitsGlimepiride 1 MG Tablet 1 tablet with breakfast or the first main meal of the day Orally Once a day Ferrous Sulfate 325 (65 Fe) MG Tablet 1 tablet Orally Three times a Week Fenofibrate 134 MG Capsule 1 capsule with a meal Orally Once a day Farxiga 5 MG Tablet 1 tablet Orally Once a day Chlorthalidone 25 MG Tablet 1 tablet in the morning with food Orally Atorvastatin Calcium 40 MG Tablet 1 tablet Orally Once a day Aspirin 81 MG Capsule 1 capsule Orally Once a day amLODIPine Besylate 10 MG Tablet 1 tablet Orally Once a day Taking Sertraline HCl 100 MG Tablet 1 tablet Orally Once a day Taking Nystatin 037712 UNIT Tablet 1 tablet Orally Three times a day Taking Metoprolol Succinate ER 50 MG Tablet Extended Release 24 Hour 1 tablet Orally Once a day Taking metFORMIN HCl 850 MG Tablet 1 tablet with a meal Orally Once a day Taking Meclizine HCl 25 MG Tablet 1 tablet as needed Orally every 12 hrs Taking Lisinopril 40 MG Tablet 1 tablet Orally Once a day Taking Lantus SoloStar 100 UNIT/ML Solution Pen-injector as directed Subcutaneous , Notes to Pharmacist: 80 unitsTaking Glimepiride 1 MG Tablet 1 tablet with breakfast or the first main meal of the day Orally Once a day Taking Ferrous Sulfate 325 (65 Fe) MG Tablet 1 tablet Orally Three times a Week Taking Fenofibrate 134 MG Capsule 1 capsule with a meal Orally Once a day Taking Farxiga 5 MG Tablet 1 tablet Orally Once a day Taking Chlorthalidone 25 MG Tablet 1 tablet in the morning with food Orally Taking Atorvastatin Calcium 40 MG Tablet 1 tablet Orally Once a day Taking Aspirin 81 MG Capsule 1 capsule Orally Once a day Taking amLODIPine Besylate 10 MG Tablet 1 tablet Orally Once a day Not-TakingPantoprazole Sodium 40 MG Tablet Delayed Release 1 tablet 1/2 to 1 hour before morning meal Orally Once a day Eligen B12 , Notes to Pharmacist: 1000 mcgDoxycycline Monohydrate 100 MG Tablet 1 tablet Orally Once a day Medication List reviewed and reconciled with the patientNot-Taking Pantoprazole Sodium 40 MG Tablet Delayed Release 1 tablet 1/2 to 1 hour before morning meal Orally Once a day Not-Taking Eligen B12 , Notes to Pharmacist: 1000 mcgNot-Taking Doxycycline Monohydrate 100 MG Tablet 1 tablet Orally Once a day Medication List reviewed and reconciled with the patient * Allergies:?N.K.D.A.no[Allerg ies Verified] Objective: * Vitals:?Wt:244.5lbs, Ht: 5ft 10in, BMI:35.08Index, HR:58/min, Temp:97.4F, RR:16/min, Ht-cm: 177.8, Wt-k.9 kg. * Examination: ???General Examination: ???GENERAL: Patient appears well nourished, with NAD. ?VASCULAR: Dorsalis pedis pulses are 2/4 bilaterally and Posterior tibial pulses are 2/4 bilaterally. Capillary filling time within normal limits the digits. Each foot temperature is within normal limits. ?NEUROLOGICAL: Sharp/dull sensation intact bilaterally, position sense intact bilaterally to the tibial tuberosity. ?ORTHOPEDIC: Good muscle strength 4+/5 of all flexors and extensors. Dorsi flexion of ankle , 0 degrees, plantar flexion WNL. No muscle atrophy. Hallux valgus right foot. Pes planus bilaterally. ?DERMATOLOGICAL: 4-5mm thickened yellowed discolored dystrophic mycotic toenails of the right and left hallux, and toes 4,5 bilaterally with subungual debris and tenderness on palpation. Incurvated medial border of the right hallux toenail with edema, no erythema, + pain on palpation, no drainage or acute signs of infection. No masses, openings, or skin lesions noted. Normal skin temperature, normal ?skin turgor. ?SHOES: sneakers. Assessment: * Assessment: 1.?Ingrown right big toenail - L60.0 (Primary)?2.?Pain in right toe(s) - M79.674?3.?Onychomycosis - B35.1?4.?Type 2 diabetes mellitus with other circulatory complications - E11.59? Plan: * Treatment: 2.?Onychomycosis? Notes: I reviewed with the patient various treatment [...] to apply to the toenails daily for thickness.?? 3.?Type 2 diabetes mellitus with other circulatory complications? Notes: Discussed with patient regarding proper glucose control, exercise, and diet. Explained to patient proper shoe gear, and importance of daily foot checks. I reviewed neuropathy and why it occurs in diabetics. I educated the patient on proper blood sugar control and the importance of an HgBA1c of less than 7.0%. I reviewed the signs and symptoms of neuropathy with the patient. ?? * Procedures:?Procedure: The patient's right foot was prepped with iodine solution and sterile draping was applied. Local anesthesia was applied in a digital nerve block fashion around the right hallux. 4cc of a 1:1mix of 1% lidocaine plain and 0.5% Marcaine plain was used. Pt tolerated the injection well. Anesthesia was tested with a 1- 2 forceps. Using a freer elevator, the nail bed was freed of the medial border of the nail dorsally and plantarly. Using an [place] [facility] nail splitter, the medial border was cut. Straight hemostats were used to remove the medial border of the nail. The area was then inspected, and no other nail remnants were seen. The area was cleansed, all bleeding was controlled with pressure. A dressing was applied to the right hallux consisting of bacitracin, gauze and Elastoplast tape. Pt tolerated the procedure well. ? * Procedure Codes:?90591 REMOV AL OF NAIL PLATE, Modifiers: T5 * Follow Up:?2 Weeks * Billing Information: * Visit Code:? 47604 Office Visit, New Pt., Level 3. Modifiers: 25 * Procedure Codes:? 80962 REMOVAL OF NAIL PLATE. Modifiers: T5 * Sign off status: Completed true * Provider:?Tangela Adams DPM Date:? 07/16/2024 Generated for Linette chaudhary/Armando/Sabaitting on:?10/22/2024 06:44 AM EDT History and Physical Notes * HPI (History of Present Illness) Category Sub-Category Detail Notes Category Not es Constitutional This 74 y/o d iabetic male presents to my office with a complaint of a painful ingrown toenail of the right big toe and toenail fungus. He states the right big toe has been sore for many months. He states about 10 years ago, he had the toenail removed. He states the side of the nail has gotten thick and curved. He has pain when walking and wearing shoes. He has to wear wider shoes to help with the pain. He denies any infection in the toe. He also complains of thickening of the toenails on both feet. He states this makes them difficult to cut, and sometimes painful. He was placed on Nystatin for GI fungus, but has not seen improvement with the toenails. He has no other foot complaints this visit. His last hgba1c was 7.8%. Medical history and Allergies reviewed. Examination Category Sub-Category Detail Notes Category Not es General Examination GENERAL: Patient appears well nourished, with NAD. VASCULAR: Dorsalis pedis pulses are 2/4 bilaterally and Posterior tibial pulses are 2/4 bilaterally. Capillary filling time within normal limits the digits. Each foot temperature is within normal limits. NEUROLOGICAL: Sharp/dull sensation intact bilaterally, position sense intact bilaterally to the tibial tuberosity. ORTHOPEDIC: Good muscle strength 4+/5 of all flexors and extensors. Dorsi flexion of ankle , 0 degrees, plantar flexion WNL. No muscle atrophy. Hallux valgus right foot. Pes planus bilaterally. DERMATOLOGICAL: 4-5mm thickened yellowed discolored dystrophic mycotic toenails of the right and left hallux, and toes 4,5 bilaterally with subungual debris and tenderness on palpation. Incurvated medial border of the right hallux toenail with edema, no erythema, + pain on palpation, no drainage or acute signs of infection. No masses, openings, or skin lesions noted. Normal skin temperature, normal skin turgor. SHOES: sneakers
--- OUTSIDE RECORDS SUMMARY | 2024-10-22 06:45 | XMS_ITS | Continuity of Care Document ---
Author Organization [facility] Address [address] [place] [address]- Care Team Providers Care Track Repair Worker Name Role Phone Sy WATSON, Divya Watkins Primary Care Physician Encounter [facility] Date(s): 09/04/24 - 10/04/24 [facility] [address] [place] [id number] Encounter Type: Triage Allergies, Adverse Reactions, Alerts No Known Allergies Immunizations Given and Recorded Vaccine Date Status Refusal Reason influenza virus vaccine, inactivated 05/10/24 Erwin rded influenza virus vaccine, inactivated 05/14/23 Erwin rded influenza virus vaccine, inactivated 05/26/22 Erwin rded influenza virus vaccine, inactivated 05/09/21 Erwin rded influenza virus vaccine, inactivated 05/14/20 Erwin rded influenza virus vaccine, inactivated 04/28/19 Erwin rded influenza virus vaccine, inactivated 05/23/18 Erwin rded influenza virus vaccine, inactivated 05/04/17 Erwin rded influenza virus vaccine, inactivated 05/24/16 Erwin rded influenza virus vaccine, inactivated 05/15/13 Erwin rded influenza virus vaccine, inactivated 06/12/12 Erwin rded influenza virus vaccine, inactivated 05/03/11 Erwin rded influenza virus vaccine, inactivated 05/15/08 Erwin rded influenza virus vaccine, inactivated 05/25/07 Erwin rded influenza virus vaccine, inactivated 07/04/06 Erwin rded influenza virus vaccine, inactivated 05/24/05 Erwin rded SARS-CoV-2 (COVID-19) mRNA-1273 vaccine 06/22/21 R ecorded SARS-CoV-2 (COVID-19) mRNA-1273 vaccine 12/04/20 R ecorded SARS-CoV-2 (COVID-19) mRNA-1273 vaccine 11/06/20 R ecorded tetanus-diphtheria toxoids (Td) 10/28/20 Recorded tetanus-diphtheria toxoids (Td) 04/26/00 Recorded pneumococcal 23-valent vaccine 03/26/16 Recorded pneumococcal 23-valent vaccine 09/01/09 Recorded pneumococcal 23-valent vaccine 09/25/04 Recorded pneumococcal 13-valent vaccine 03/11/15 Recorded tetanus/diphtheria/pertussis, acel(Tdap) 09/01/09 Recorded Medications amLODIPine 10 mg oral tablet 1 tablet, By Mouth, Daily, # 90 tablet, 1 Refills, Maintenance, 05/28/24 8:13:00 AM EDT, [id number], 178, cm, 03/23/24 13:32:00 EDT, Height, 107, kg, 10/06/22 0:15:00 EST, Dry Weight Start Date: 05/28/24 Status: Ordered Quantity: 90.0 Unit: tablet Repeat number: 1 aspirin 81 mg oral enteric coated tablet 1 tablet = 81 mg, By Mouth, Daily, # 30 tablet, 0 Refills, Maintenance, 11/11/14 5:22:07 PM EDT, EC Tablet, [facility]/pharmacy #[id number] Start Date: 11/11/14 Status: Ordered Quantity: 30.0 Unit: tablet Repeat number: 1 atorvastatin 40 mg oral tablet 1 tablet, By Mouth, Daily, # 90 tablet, 1 Refills, Maintenance, 09/26/24 12:22:00 PM EST, [id number], 178, cm, 07/17/24 8:23:00 EST, Height, 107, kg, 10/06/22 0:15:00 EST, Dry Weight Start Date: 09/26/24 Status: Ordered Quantity: 90.0 Unit: tablet Repeat number: 1 BD UF MINI PEN NEEDLE [id number] BD UF MINI PEN NEEDLE [id number], See Instructions, # 200 Unknown, 1 Refills, Maintenance, TO CHECK BLOOD SUGAR TWICE PER DAY, 03/09/23 3:50:00 PM EDT, 178, cm, 02/28/23 8:38:00 EDT, Height, 107, kg, 10/06/22 0:15:00 EST, Dry Weight Start Date: 03/09/23 Status: Ordered Quantity: 200.0 Unit: Unknown Repeat number: 1 chlorthalidone 25 mg oral tablet 1, tablet, By Mouth, Daily, # 90 tablet, Refills 1, Maintenance, 09/26/24 12:22:00 PM EST, Route to Pharmacy Electronically, [id number], 178, cm, 07/17/24 8:23:00 EST, Height, 107, kg, 10/06/22 0:15:00 EST, Dry Weight Start Date: 09/26/24 Status: Ordered Quantity: 90.0 Unit: tablet Repeat number: 1 Eligen B12 1000 mcg oral tablet 1 tablet, By Mouth, Daily, on an empty stomach, # 90 tablet, 1 Refills, Maintenance, 06/09/22 10:22:00 AM EDT, Tablet, [facility]/pharmacy #[id number], Partial fill upon patient request if the prescription is fora schedule II opioid drug., 178, cm, 06/09/22 8:28:00 EDT, Height, 106.9, kg, 06/06/22 9:48:00 EDT,Dry Weight Start Date: 06/09/22 Status: Ordered Quantity: 90.0 Unit: tablet Repeat number: 2 Farxiga 5 mg oral tablet See Instructions, 1 tablet By Mouth Daily. E11.9, # 90 tablet, 1 Refills, Maintenance, 09/27/24 12:02:00 PM EST, Tablet, [facility], Partial fill upon patient request if the prescription is for a schedule II opioid drug., 178, cm, 07/17/24 8:23:00 EST, Height, 107, kg, 10/06/22 0:15:00 EST,Dry Weight Start Date: 09/27/24 Status: Ordered Quantity: 90.0 Unit: tablet Repeat number: 2 fenofibrate 134 mg oral capsule 1 capsule, By Mouth, Daily, # 90 capsule, 1 Refills, Maintenance, 05/14/24 7:24:00 AM EDT, [facility]/pharmacy #[id number], 178, cm, 03/23/24 13:32:00 EDT, Height, 107, kg, 10/06/22 0:15:00 EST, Dry Weight Start Date: 05/14/24 Status: Ordered Quantity: 90.0 Unit: capsule Repeat number: 2 ferrous sulfate 325 mg oral tablet 1 tablet, By Mouth, 2 times a day, # 180 tablet, 1 Refills, Maintenance, 08/19/23 9:36:00 AM EST, [id number], 178, cm, 08/17/23 9:11:00 EST, Height, 107, kg, 10/06/22 0:15:00 EST, Dry Weight Start Date: 08/19/23 Status: Ordered Quantity: 180.0 Unit: tablet Repeat number: 1 Freestyle tod 3 reader Freestyle tod 3 reader, See Instructions, # 1 each, Refills 0, Tot. Refills 0, Maintenance, E10.9Freestyle tod 3 reader, 08/20/24 3:34:00 PM EST, Supply, 178, cm, 07/17/24 8:23:00 EST, Height, 107, kg, 10/06/22 0:15:00 EST, Dry Weight Start Date: 08/20/24 Status: Ordered Quantity: 1.0 Unit: each Repeat number: 1 Freestyle tod 3 sensor Freestyle tod 3 sensor, See Instructions, # 2 each, Refills 11, Tot. Refills 11, Maintenance, Freestyle tod 3 sensor, 1 every 14 days, 28-day supply. E10.9, 07/17/24 8:47:00 PM EST, Supply, 178, cm, 07/17/24 8:23:00 EST, Height, 107, kg, 10/06/22 0:15:00 EST, Dry Weight Start Date: 07/17/24 Status: Ordered Quantity: 2.0 Unit: each Repeat number: 12 Glucagon Emergency Kit for Low Blood Sugar 1 mg injection = 1 mg, Subcutaneous Injection, Once, To be use for hypoglycemic emergency by family member or accompanying person, if blood glucoses less than 60 and unconscious. Please call 911 after use glucagon pen., # 1 each, 0 Refills, Soft Stop, 07/17/24 9:00:00 AM EST, Powder, [id number], Partial fill upon patient request if the prescription is for a schedule II opioid drug., 178, cm, 07/17/24 8:23:00 EST, Height, 107, kg, 10/06/22 0:15:00 EST, Dry Weight Start Date: 07/17/24 Status: Ordered Quantity: 1.0 Unit: each Repeat number: 1 Humalog Kwik Pen 100 units/mL subcutaneous injection See Instructions, Sliding Scale Comments 100 - 149 2 units Call if less than 70 150 - 199 4 units 200 - 249 6 units 250 - 299 8 units 300 - 349 10units 350 - 399 12 units Call if greater than 400 MaxDaily dose 40 units, 90-day supply, # 40 mL, 3 Refills, Maintenance, 08/01/24 3:57:00 PM EST, Solution, [facility]/pharmacy #[id number], Partial fill upon patient request if the prescription is for a schedule II opioid drug., 178, cm, 07/17/24 8:23:00 EST, Height, 107, kg, 10/06/22 0:15:00 EST, Dry Weight Start Date: 08/01/24 Status: Ordered Quantity: 40.0 Unit: mL Repeat number: 4 Lantus Solostar Pen 100 units/mL subcutaneous solution See Instructions, INJECT 50 UNITS SUBCUTANEOUSLY EVERY MORNING AND 50 UNITS BEFORE BED, # 75 mL, 3 Refills, Maintenance, 07/17/24 12:45:00 PM EST, [facility]/pharmacy #[id number], dose update, 178, cm, 07/17/24 8:23:00 EST, Height, 107, kg, 10/06/22 0:15:00 EST, Dry Weight Start Date: 07/17/24 Status: Ordered Quantity: 75.0 Unit: mL Repeat number: 4 lisinopril 40 mg oral tablet 1 tablet = 40 mg, By Mouth, Daily, # 90 tablet, 1 Refills, Maintenance, 09/27/24 9:17:00 PM EST, Tablet, [facility]/pharmacy #[id number], dose increase from 30 mg to 40 mg, 178, cm, 07/17/24 8:23:00 EST, Height, 107, kg, 10/06/22 0:15:00 EST, Dry Weight Start Date: 09/27/24 Status: Ordered Quantity: 90.0 Unit: tablet Repeat number: 2 meclizine 25 mg oral tablet 1 tablet = 25 mg, By Mouth, PRN, 0 Refills, Maintenance, 02/28/24 2:25:00 PM EDT, Partial fill upon patient request if the prescription is for a schedule II opioid drug. Start Date: 02/28/24 Status: Ordered Repeat number: 1 metFORMIN 850 mg oral tablet 1 tablet, By Mouth, 3 times a day before meals, # 270 tablet, 3 Refills, Maintenance, 02/28/24 3:05:00 PM EDT, [facility]/pharmacy #[id number], 178, cm, 02/28/24 14:15:00 EDT, Height, 107, kg, 10/06/22 0:15:00 EST, Dry Weight Start Date: 02/28/24 Status: Ordered Quantity: 270.0 Unit: tablet Repeat number: 4 Metoprolol Succinate ER 50 mg oral tablet, extended release See Instructions, TAKE 1 TABLET BY MOUTH EVERY DAY, # 90 tablet, Refills 1, Maintenance, 05/26/24 8:08:00 AM EDT, Instructions Replace Required Details, Route to Pharmacy Electronically, [id number], 178, cm, 03/23/24 13:32:00 EDT, Height, 107, kg, 10/06/22 0:15:00 EST, Dry Weight Start Date: 05/26/24 Status: Ordered Quantity: 90.0 Unit: tablet Repeat number: 1 nystatin [id number] u oral tablet 1 tablet = 500,000 units, By Mouth, 2 times a day, # 21 tablet, 0 Refills, Maintenance, 03/23/24 1:19:00 PM EDT, Tablet, Partial fill upon patient request if the prescription is for a schedule II opioid drug. Start Date: 03/23/24 Status: Ordered Quantity: 21.0 Unit: tablet Repeat number: 1 pantoprazole 40 mg oral delayed release tablet 1 tablet = 40 mg, By Mouth, Daily, # 90 tablet, 1 Refills, Maintenance, 04/27/23 10:22:00 AM EDT, [facility], 178, cm, 04/13/23 8:35:00 EDT, Height, 107, kg, 10/06/22 0:15:00 EST, Dry Weight Start Date: 04/27/23 Status: Ordered Quantity: 90.0 Unit: tablet Repeat number: 2 Pen [place], 31 G x 8 mm BD Ultra Fine III See Instructions, # 450 each, Refills 1, Tot. Refills 1, Maintenance, to use with insulin 5 times/day per day( 90 day supply)E11.65, 08/02/24 3:17:00 PM EST, Supply, 178, cm, 07/17/24 8:23:00 EST, Height, 107, kg, 02/22/23 0:15:00 EST, Dry Weight Start Date: 08/02/24 Status: Ordered Quantity: 450.0 Unit: each Repeat number: 2 sertraline 100 mg oral tablet 1 tablet, By Mouth, Daily, # 90 tablet, 1 Refills, Maintenance, 05/07/24 10:03:00 AM EDT, [id number], 178, cm, 03/23/24 13:32:00 EDT, Height, 107, kg, 10/06/22 0:15:00 EST, Dry Weight Start Date: 05/07/24 Status: Ordered Quantity: 90.0 Unit: tablet Repeat number: 1 Problem List Condition Confirmation Course Effective Dates Status Health Status Informant Aneurysm, thoracic aortic Confirmed Active Anxiety Confirmed Active Calculus of gallbladder without cholecystitis without obstruction Confirmed Active Chronic vertigo 1 Confirmed Active Renal cyst Confirmed Active Generalized OA Confirmed Active Uncontrolled diabetes mellitus with hyperglycemia, with long-term current use of insulin Confirmed Active Diabetes with retinopathy Confirmed Active Diabetes Confirmed Active Erectile dysfunction Confirmed Active Former tobacco use 2 Confirmed Active GERD (gastroesophageal reflux disease) Confirmed Active S/P knee replacement Confirmed Active Hypercholesteremia Confirmed Active Hypertension associated with diabetes Confirmed Active IBS (irritable bowel syndrome) Confirmed Active Left inguinal hernia Confirmed Active Mild depression Confirmed Active Fatty liver disease, nonalcoholic Confirmed Active Nuclear sclerosis of both eyes Confirmed Active Obese class I Confirmed Active TOÑO (obstructive sleep apnea)- On CPAP Confirmed Active 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 Confirmed Active Venous insufficiency Confirmed Active 1normal CT angio head and neck 05/2022 referred to ENT and vestibulr rehab 09/2022 2quit age 31 3Erectile dysfunction Social History Social History Type Response Smoking Status Former smoker; Type: Cigarettes entered on: 11/09/14 Sex Sex Representation Male (finding) Patient Care team information Care Team Personnel Name: Gamal Faustin RN Position: [facility] RN Member Role: Primary Care Nurse Name: Divya Dan MD Position: [facility] Physician - Primary Care Member Role: PCP Address: [address] [place] [address] [place] [address]- Telecom: Name: Alvaro Gabriel RN Position: [facility] RN Member Role: Primary Care Nurse Care Team Related Persons Name: MITESH VELASCO Name: TEODORA MENSAH Insurance Providers Guarantor name: TRIPP VELASCO [facility] Plan Information #: 1 Payer: [employer] ADV HMO Member Number: NA Policy Number: NA Group Number: NA
--- OUTSIDE RECORDS SUMMARY | 2024-10-22 06:45 | XMS_ITS | Clinical Summary ---
Author Organization [facility] Address [address] [place] [id number] Care Team Providers Care Strategic Partnership Manager Name Role Phone Unavailable Primary Care Provider Unavailabl e Social History Tobacco Use Types Packs/Day Years Used Date Smoking Tobacco: Never Assessed Sex and Gender Information Value Date Recorded Sex Assigned at Male 08/18/2020 7:34 AM EST Gender Identity Not on file Sexual Orientation Not on file Job Start Date Occupation Industry Not on file Not on file Not on file Plan of Treatment Health Maintenance Due Date Last Done Comments Hepatitis C Screening 1950 Depression Screening 1963 Preventative Health Evaluation 1969 Colon Cancer Screening (Colonoscopy) 1996 Shingrix-Zoster Vaccine (1 of 2) 2001 Fall Risk Assessment 2016 DTap / Tdap / Td (2 - Td or Tdap) 09/01/2019 09/01/2009 COVID-19 Vaccine ( - season) 2024 12/04/2020, 11/06/2020 Influenza Vaccine (#1) 2024 0, 04/28/2019, 05/04/2017, Additional history exists RSV Adult > 60+ Yrs or (1 - 1-dose 75+ series) 2026 Pneumococcal Vaccine Completed 03/26/2016, 03/11/2015, 09/01/2009, Additional history exists Hepatitis B Vaccines Aged Out No long er eligible based on patient's age to complete this topic RSV Ped < 20 months Aged Out No longe r eligible based on patient's age to complete this topic
--- OUTSIDE RECORDS SUMMARY | 2024-10-22 06:45 | XMS_ITS ---
Author Organization [facility] Address [address] [address] Care Team Providers Care Church Warden Name Role Phone Divya Dan Primary Care Provider NADIA Graham [phone] REASON FOR VISIT toenail biopsy Encounters Encounter Location Date Provider Diagnosis [facility] [address] [address] 07/23/2024 NADIA RODRIGUEZ Plan Of Treatment No Information Progress Notes * ROD AbiodunDOB:1950 ([age] yo M)Acc No.[id number]:07/23/2024 Patient:?Abiodun BANERJEE :1950???Age:74 Y???Sex:Male Phone: Address:[address] [place], [place] [address] [place] [address] * true * Date:? Generated for Linette chaudhary/Armando/eTransmitting on:?10/22/2024 06:45 AM EDT
--- OUTSIDE RECORDS SUMMARY | 2024-10-22 06:45 | XMS_ITS | Continuity of Care Document ---
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 Name Role Phone Sy WATSON, Divya Watkins Primary Care Physician Encounter [facility] Date(s): 10/09/24 - 10/16/24 [facility] [address] [place] [id number] Encounter Diagnosis Diabetes(Discharge Diagnosis) - 10/09/24 Attending Physician: Forest Jiménez MD Encounter Type: Office Visit Allergies, Adverse Reactions, Alerts No Known Allergies [...] 1 Refills, Maintenance, 05/28/24 8:13:00 AM EDT, [id number], 178, cm, 03/23/24 13:32:00 EDT, Height, 107, kg, 10/06/22 0:15:00 EST, Dry Weight Start Date: 05/28/24 Status: Ordered Quantity: 90.0 Unit: tablet Repeat number: 1 aspirin 81 mg oral enteric coated tablet 1 tablet = 81 mg, By Mouth, Daily, # 30 tablet, 0 Refills, Maintenance, 11/11/14 5:22:07 PM EDT, EC Tablet, [facility]/pharmacy #[id number] Start Date: 11/11/14 Status: Ordered Quantity: 30.0 Unit: tablet Repeat number: 1 atorvastatin 40 mg oral tablet 1 tablet, By Mouth, Daily, # 90 tablet, 1 Refills, Maintenance, 09/26/24 12:22:00 PM EST, [facility], 178, cm, 07/17/24 8:23:00 EST, Height, 107, kg, 10/06/22 0:15:00 EST, Dry Weight Start Date: 09/26/24 Status: Ordered Quantity: 90.0 Unit: tablet Repeat number: 1 BD UF MINI PEN NEEDLE [id number] BD UF MINI PEN NEEDLE [id number], See Instructions, # 200 Unknown, 1 Refills, [...] 12:22:00 PM EST, Route to Pharmacy Electronically, [id number], 178, cm, 07/17/24 8:23:00 EST, Height, 107, kg, 10/06/22 0:15:00 EST, Dry Weight Start Date: 09/26/24 Status: Ordered Quantity: 90.0 Unit: tablet Repeat number: 1 Eligen B12 1000 mcg oral tablet 1 tablet, By Mouth, Daily, on an empty stomach, # 90 tablet, 1 Refills, Maintenance, 06/09/22 10:22:00 AM EDT, Tablet, [facility]/pharmacy #[id number], Partial fill upon patient request [...] 1 Refills, Maintenance, 05/14/24 7:24:00 AM EDT, [facility]/pharmacy #[id number], 178, cm, 03/23/24 13:32:00 EDT, Height, 107, kg, 10/06/22 0:15:00 EST, Dry Weight Start Date: 05/14/24 Status: Ordered Quantity: 90.0 Unit: capsule Repeat number: 2 ferrous sulfate 325 mg oral tablet 1 tablet, By Mouth, 2 times a day, # 180 tablet, 1 Refills, Maintenance, 08/19/23 9:36:00 AM EST, [facility], 178, cm, 08/17/23 9:11:00 EST, Height, 107, kg, 10/06/22 0:15:00 EST, Dry Weight Start Date: 08/19/23 Status: Ordered Quantity: 180.0 Unit: tablet Repeat number: 1 Freestyle geneva 3 reader Freestyle geneva 3 reader, See Instructions, # 1 each, Refills 0, Tot. Refills 0, Maintenance, E10.9Freestyle geneva 3 reader, 08/20/24 3:34:00 PM EST, Supply, 178, cm, 07/17/24 8:23:00 EST, Height, 107, kg, 10/06/22 0:15:00 EST, Dry Weight Start Date: 08/20/24 Status: Ordered Quantity: 1.0 Unit: each Repeat number: 1 FREESTYLE GENEVA 3 READER FREESTYLE GENEVA 3 READER, See Instructions, # 1 Unknown, 0 Refills, Maintenance, E10.9 FREESTYLE GENEVA 3 READER, 10/10/24 10:35:00 AM EST, 178, cm, 10/09/24 8:07:00 EST, Height Start Date: 10/10/24 Status: Ordered Quantity: 1.0 Unit: Unknown Repeat number: 1 Freestyle geneva 3 sensor Freestyle geneva 3 sensor, See Instructions, # 6 each, Refills 11, Tot. Refills 11, Maintenance, Freestyle geneva 3 sensor, 1 every 14 days, 90-day supply. E10.9, 10/10/24 11:13:00 AM EST, Supply, 178, cm, 10/09/24 8:07:00 EST, Height Start Date: 10/10/24 Status: Ordered Quantity: 6.0 Unit: each Repeat number: 12 Glucagon Emergency Kit for Low Blood Sugar 1 mg injection = 1 mg, Subcutaneous Injection, Once, To be use for hypoglycemic emergency by family member or accompanying person, if blood glucoses less than 60 and unconscious. Please call 911 after use glucagon pen., # 1 each, 0 Refills, Soft Stop, 07/17/24 9:00:00 AM EST, Powder, [facility]/pharmacy #[id number], Partial fill upon patient request if the prescription is for a schedule II opioid drug., 178, cm, 07/17/24 8:23:00 EST, Height, 107, kg, 10/06/22 0:15:00 EST, Dry Weight Start Date: 07/17/24 Status: Ordered Quantity: 1.0 Unit: each Repeat number: 1 Humalog Kwik Pen 100 units/mL subcutaneous injection See Instructions, Sliding Scale Comments 100 - 149 4 units Call if less than 70 150 - 199 6 units 200 - 249 8 units 250 - 299 10 units 300 - 349 12units 350 - 399 14 units Call if greater than 400 Max Daily dose 42 units, 90-day supply, # 40 mL, 3 Refills, Maintenance, 10/09/24 9:07:00 AM EST, Solution, [facility], dose update, 178, cm, 10/09/24 8:07:00 EST, Height Start Date: 10/09/24 Status: Ordered Quantity: 40.0 Unit: mL Repeat number: 4 lisinopril 40 mg oral tablet 1 tablet = 40 mg, By Mouth, Daily, # 90 tablet, 1 Refills, Maintenance, 09/27/24 9:17:00 PM EST, Tablet, [facility]/pharmacy #[id number], dose increase from 30 mg to 40 mg, 178, cm, 07/17/24 8:23:00 EST, Height, 107, kg, 10/06/22 0:15:00 EST, Dry Weight Start Date: 09/27/24 Status: Ordered Quantity: 90.0 Unit: tablet Repeat number: 2 metFORMIN 850 mg oral tablet 1 tablet, By Mouth, 2 times a day, # 180 tablet, 3 Refills, Maintenance, 10/09/24 9:07:00 AM EST, [facility], dose update, 178, cm, 10/09/24 8:07:00 EST, Height Start Date: 10/09/24 Stop Date: 10/04/25 Status: Ordered Quantity: 180.0 Unit: tablet Repeat number: 4 Metoprolol Succinate ER 50 mg oral tablet, extended release See Instructions, TAKE 1 TABLET BY MOUTH EVERY DAY, # 90 tablet, Refills 1, Maintenance, 05/26/24 8:08:00 AM EDT, Instructions Replace Required Details, Route to Pharmacy Electronically, [id number], 178, cm, 03/23/24 13:32:00 EDT, Height, 107, kg, 10/06/22 0:15:00 EST, Dry Weight Start Date: 05/26/24 Status: Ordered Quantity: 90.0 Unit: tablet Repeat number: 1 nystatin 677057 u oral tablet 1 tablet = 500,000 [...] 90.0 Unit: tablet Repeat number: 2 Pen Mingo, 31 G x 8 mm BD Ultra Fine III See Instructions, # 450 each, Refills 1, Tot. Refills 1, Maintenance, to use with insulin 5 times/day per day( 90 day supply)E11.65, 08/02/24 3:17:00 PM EST, Supply, 178, cm, 07/17/24 8:23:00 EST, Height, 107, kg, 10/06/22 0:15:00 EST, Dry Weight Start Date: 08/02/24 Status: Ordered Quantity: 450.0 Unit: each Repeat number: 2 sertraline 100 mg oral tablet 1 tablet, By Mouth, Daily, # 90 tablet, 1 Refills, Maintenance, 05/07/24 10:03:00 AM EDT, [facility], 178, cm, 03/23/24 13:32:00 EDT, Height, 107, kg, 10/06/22 0:15:00 EST, Dry Weight Start Date: 05/07/24 Status: Ordered Quantity: 90.0 Unit: tablet Repeat number: 1 Toujeo Max SoloStar 300 units/mL subcutaneous solution = 110 units, Subcutaneous Injection, Daily, E11.9, # 40.5 mL, 7 Refills, Maintenance, 10/09/24 12:13:00 PM EST, [facility], [id number], Partial fill upon patient request if the prescription is for a schedule II opioid drug., 178, cm, 10/09/24 8:07:00 EST, Height Start Date: 10/09/24 Stop Date: 09/29/26 Status: Ordered Quantity: 40.5 Unit: mL Repeat number: 8 Problem List Condition Confirmation Course Effective Dates [...] rehab 09/2022 2quit age 31 3Erectile dysfunction Diagnosis Diagnosis Type Effective Dates Health Status [facility] Service Informant Diabetes Discharge Diagnosis 10/09/24 Vital Signs Most recent to oldest [Reference Range]: 1 Height 178 cm (10/09/24 8:07 AM) Weight 110.0 kg (10/09/24 8:07 AM) Pulse Rate [55-90 bpm] 65 bpm (10/09/24 8:07 AM) Body Mass Index [18.5-24.99 kg/m2] 34.72 kg/m2 *>HHI* (10/09/24 8:07 AM) Blood Pressure [90-138/55-84 mm Hg] 143/ 54mm Hg *H* (10/09/24 8:07 AM) Blood pressure sites Arm, right (10/09/24 8:07 AM) Weight Obtained Via Bed scale (10/09/24 8:07 AM) Social History Social History Type Response Smoking Status Former smoker; Type: Cigarettes entered on: 11/09/14 Sex Sex Representation Male (finding) Note * Yamilka Cid: PERFORM Event Display: Patient Education/Instruction Authored Date: [id number] Ambulatory Adult Visit Summary [facility] [address] [place] [address] Name: TRIPP VELASCO : 1950?? Visit: 10/09/2024 08:03?? Ambulatory Visit Instructions ?? Your Care Team Primary Care Provider Sy WATSON, Divya Watkins? This Visit Provider Forest Jiménez MD Your Diagnosis Diabetes Vitals Signs Pulse Rate: 65 bpm Height: 178 cm Systolic Blood Pressure:??143 mm Hg??High Weight: 110 kg Diastolic Blood Pressure:??54 mm Hg??Low Body Mass Index:??34.72 kg/m2??Critical ?? Body surface area: 2.33 What to do next Instructions From Your Provider Your Goal A1c less than 7.5% ?? fasting blood glucose goal 80-130 ?? 2-hour after meals blood glucose goal less than 180 ?? Please call if Your Blood sugar is <70 or >400 ? start Tjoe Glargine U300 110 unit nightly start tommorw in the PM?? Continue metformin 850 mg 1 tablet twice daily Continue Farxiga 5 mg daily ?? Start Humalog sliding scale 10 to 15 minutes before each meal(do not take if not eating) ?? blood sugar ??insulin units 100 - 149?4 units Call if less than 70 150 - 199?6 units 200 - 249?8 units 250 - 299?? 10 units 300 - 349?12units 350 - 399?? 14?? units Call if greater than 400 ? Hypoglycemia Patient Instructions Hypoglycemia or low blood glucose is when your glucose levels fallen low enough to cause symptoms. This is usually <70 mg/dl, but this may vary from person to person. Symptoms of hypoglycemia include:?- feeling shaky ?- feeling sleepy/lethargic ??- being nervous or anxious ?- feeling weak, having no energy ??- sweating, chills, clamminess ?- blurred/impaired vision ??- mood swings, irritability, impatience ?-tingling/numbness in lips, tongue, cheeks ??- confusion ?- headaches ??- palpitations/fast heartbeat ?- coordination problems, clumsiness ??- feeling light-headed or dizzy ?- nightmares or crying out in sleep ??- hunger, nausea ?- seizures ? How to manage hypoglycemia/low blood sugar:?Follow the 15-15 rule: have 15 grams of carbohydrate (options listed below) to raise your blood glucose and check it after 15 minutes. If it is still <70 mg/dl or below your low target, have another serving.?Repeat these steps until your blood glucose is back to normal, eat a meal or snack to ensure it does not go low again.? 15 grams of carbohydrates: ??- 4 ounces (1/2 cup) of juice or regular soda ??- 1 tablespoon of sugar, honey or corn syrup ??- 8 ounces of nonfat or 1% milk ??- 15 pieces of Skittles?- 4-7 pieces of hard candy (lifesavers, peppermints or jellybeans) ??- 3-4 glucose tablets ? Please call your primary care provider or us if you need assistance managing your hypoglycemia ([phone]).? Severe hypoglycemia: When hypoglycemia or low blood sugar is not treated and you need someone to help you recover.?Glucagon can be injected following the instructions in the Glucagon kit.? Please call 911 if the person is unconscious or glucagon is not sufficient or available! ?? Scheduled Follow-Up Appointments Tuesday 8:40 AM EST ?? With: Sy WATSON, Divya Watkins Where: [facility] [address] [address]- Status: Pending Tuesday 11:00 AM EDT ?? With: Tino WATSON, Forest Srinivasan Where: [address] [place] [address]- Status: Pending Follow-Up Appointments Follow up Appointment - Ordered?-- 3 months, 10/09/24 9:13:00 EST Future Orders Microalbumin Urine (Urine Microalbumin) - Routine, Once, 02/28/24 14:50:00 EDT, Single or RecurringFuture Order, [facility], Urine?? Medications The list below reflects the information in our records and provided by you today along with any changes made during this visit. Please continue your medications until treatment is completed or stopped by your provider. If this is different from the information you have or there are other questions,please contact the prescribing provider. What How Much When Instructions Changed Durable Medical Equipment (Freestyle geneva 3 reader) See instructions E10.9 Freestyle geneva 3 reader ?? Changed Durable Medical Equipment (Freestyle geneva 3 sensor) See instructions Freestyle geneva 3 sensor, 1 every 14 days, 90-day supply. ??E10.9 ?? Pickup at [facility] Changed Durable Medical Equipment (Pen Mingo, 31 G x 8 mm BD Ultra Fine III) See instructions to use with insulin 5 times/ day per day( 90 day supply)E11.65 ?? Changed Insulin Glargine (Toujeo Max SoloStar 300 units/ mL subcutaneous solution) 110 unit(s) Subcutaneous Injection Daily Duration: 90 Days E11.9 ?? Changed Insulin Lispro (Humalog Kwik Pen 100 units/ mL subcutaneous injection) See instructions Sliding Scale Comments 100 - 149 ?? 4 units Call if less than 70 150 - 199 ?? 6 units 200 - 249 ?? 8 units 250 - 299 ??10 units 300 - 349 ?? 12units 350 - 399 ??14 ??units Call if greater than 400 ?? Max Daily dose 42 units, 90-day supply ?? Pickup at [facility] Changed Metformin (metFORMIN 850 mg oral tablet) 1 tab(s) Oral Twice a day Duration: 90 Days Pickup at [facility] Unchanged Amlodipine (amLODIPine 10 mg oral tablet) 1 tab(s) Oral Daily Unchanged Aspirin (aspirin 81 mg oral enteric coated tablet) 1 tab(s) Oral Daily Unchanged Atorvastatin (atorvastatin 40 mg oral tablet) 1 tab(s) Oral Daily Unchanged Chlorthalidone (chlorthalidone 25 mg oral tablet) 1 tab(s) Oral Daily Unchanged Cyanocobalamin (Eligen B12 1000 mcg oral tablet) 1 tab(s) Oral Daily on an empty stomach ?? Unchanged dapagliflozin (Farxiga 5 mg oral tablet) See instructions 1 tablet By Mouth Daily. E11.9 ?? Unchanged Fenofibrate (fenofibrate 134 mg oral capsule) 1 capsule Oral Daily Unchanged Ferrous Sulfate (ferrous sulfate 325 mg oral tablet) 1 tab(s) Oral Twice a day Unchanged Glucagon (Glucagon Emergency Kit for Low Blood Sugar 1 mg injection) 1 Milligram Subcutaneous Injection Once To be use for hypoglycemic emergency by family member or accompanying person, if blood glucoses less than 60 and unconscious. ??Please call 911 after use glucagon pen. ?? Unchanged Lisinopril (lisinopril 40 mg oral tablet) 1 tab(s) Oral Daily Unchanged Metoprolol (Metoprolol Succinate ER 50 mg oral tablet, extended release) See instructions TAKE 1 TABLET BY MOUTH EVERY DAY ?? Unchanged Miscellaneous Rx (BD UF MINI PEN NEEDLE [id number]) See instructions TO CHECK BLOOD SUGAR TWICE PER DAY ?? Unchanged Nystatin (nystatin 070982 u oral tablet) 1 tab(s) Oral Twice a day Unchanged Pantoprazole (pantoprazole 40 mg oral delayed release tablet) 1 tab(s) Oral Daily Unchanged Sertraline (sertraline 100 mg oral tablet) 1 tab(s) Oral Daily Pharmacy Information [facility]: [address] [id number] [phone] ?? What How Much When Comments Stop Taking Meclizine (meclizine 25 mg oral tablet) 1 tab(s) Oral PRN ?? Test Performed Below is a partial list of the tests performed during your Visit. You may have had other tests and procedures not included in this list. Please discuss all test results with your provider. POC GLUCOSE ([facility]) POC HBA1C ([facility]) Lab Test Results Below is a partial list of the most recent Laboratory test results done during your Visit. You may have had other tests and procedures not included in this list. Please discuss all test results with your provider. Test Name Test Result Date/Time POC Glucose ([facility]) 215 mg/dL 10/09/2024 08:20 EST POC HBA1C ([facility]) 7.4 % 10/09/2024 08:21 EST Medications and Immunizations Administered Medications Given During Visit No medications given during this visit.?? Allergies (NKA means No Known Allergies) NKA Common Emergency Awareness Tips IS IT A STROKE? Act FAST and Check for these signs: FACE Does the face look uneven? ARM Does one arm drift down? SPEECH Does their speech sound strange? TIME Call at any sign of stroke ?? Heart Attack Signs Chest discomfort: Most heart attacks involve discomfort in the center of the chest and lasts more than a few minutes, or goes away and comes back. It can feel like uncomfortable pressure, squeezing, fullness or pain. Discomfort in upper body: Symptoms can include pain or discomfort in one or both arms, back, neck, jaw or stomach. Shortness of breath: With or without discomfort. Other signs: Breaking out in a cold sweat, nausea, or lightheaded. Remember, MINUTES DO MATTER. If you experience any of these heart attack warning signs, call to get immediate medical attention! ?? Smoking can increase your chances of developing chronic health problems and can cause harmful effects to other family members in your house. If you smoke, you are strongly encouraged to quit. Please call [facility] at [phone] or [phone] ([phone]) or log in to [email or web address] for referrals to smoking cessation programs. ?? The National Suicide Prevention Hotline is available 07/03 if you or someone you know needs to find a reason to keep living. By calling 9-473-537-[employer] Game (1953) you'll be connected to a skilled, trained counselor at a crisis center in your area. [facility] You can view and manage your care through the patient portal or by using a health care guillermo of your choosing. [employer] is a website that allows you to securely view your medical information including your hospital discharge summary, office visit summaries, medications and follow-up visits. You can also request appointments, renew medications, and request access to your medical information using a health care guillermo of your choosing, or just ask a question. You can enroll at [email or web address] or register during your next office visit. [facility], in keeping with [facility] guidance, no longer requires face masks for staff, patientsor visitors in most situations. Similiar to time spent indoors at other locations, there is the chance that you were exposed to repiratory viruses during your time with us (such as flu or COVID-19). If you develop symptoms concerning for a viral respiratory infection, please seek testing (and treatment if indicated) from your medical provider or home test kit. ?? Disclaimer: The information provided is of a general nature and is intended to be used in conjunction with the recommendations and advice of your health care practitioner. Every effort has been made to ensure that the information provided is accurate and complete at the time it is provided to you however, as your needs change, or, as new information becomes available, different or additional instructions may be required. ?? If you have questions, please consult with your primary care provider or pharmacist, as appropriate. This information is not intended to serve as substitution for assessment and evaluation by a qualified health care provider. If you do not have a primary care provider, you may find a [facility] provider by calling [facility] at [phone]. * Gabriella Reza: PERFORM Event Display: Patient Education/Instruction Authored Date: [id number] Ambulatory Adult Visit Summary [facility] [address] [place] [address] Name: TRIPP VELASCO : 1950?? Visit: 10/09/2024 08:03?? Ambulatory Visit Instructions ?? Your Care Team Primary Care Provider Divya Dan MD? This Visit Provider Forest Jiménez MD Your Diagnosis Diabetes Vitals Signs Pulse Rate: 65 bpm Height: 178 cm Systolic Blood Pressure:??143 mm Hg??High Weight: 110 kg Diastolic Blood Pressure:??54 mm Hg??Low Body Mass Index:??34.72 kg/m2??Critical ?? Body surface area: 2.33 What to do next Instructions From Your Provider Your Goal A1c less than 7.5% ?? fasting blood glucose goal 80-130 ?? 2-hour after meals blood glucose goal less than 180 ?? Please call if Your Blood sugar is <70 or >400 ? start Tjoe Glargine U300 110 unit nightly start tommorw in the PM?? Continue metformin 850 mg 1 tablet twice daily Continue Farxiga 5 mg daily ?? Start Humalog sliding scale 10 to 15 minutes before each meal(do not take if not eating) ?? blood sugar ??insulin units 100 - 149?4 units Call if less than 70 150 - 199?6 units 200 - 249?8 units 250 - 299?? 10 units 300 - 349?12units 350 - 399?? 14?? units Call if greater than 400 ? Hypoglycemia Patient Instructions Hypoglycemia or low blood glucose is when your glucose levels fallen low enough to cause symptoms. This is usually <70 mg/dl, but this may vary from person to person. Symptoms of hypoglycemia include:?- feeling shaky ?- feeling sleepy/lethargic ??- being nervous or anxious ?- feeling weak, having no energy ??- sweating, chills, clamminess ?- blurred/impaired vision ??- mood swings, irritability, impatience ?-tingling/numbness in lips, tongue, cheeks ??- confusion ?- headaches ??- palpitations/fast heartbeat ?- coordination problems, clumsiness ??- feeling light-headed or dizzy ?- nightmares or crying out in sleep ??- hunger, nausea ?- seizures ? How to manage hypoglycemia/low blood sugar:?Follow the 15-15 rule: have 15 grams of carbohydrate (options listed below) to raise your blood glucose and check it after 15 minutes. If it is still <70 mg/dl or below your low target, have another serving.?Repeat these steps until your blood glucose is back to normal, eat a meal or snack to ensure it does not go low again.? 15 grams of carbohydrates: ??- 4 ounces (1/2 cup) of juice or regular soda ??- 1 tablespoon of sugar, honey or corn syrup ??- 8 ounces of nonfat or 1% milk ??- 15 pieces of Skittles?- 4-7 pieces of hard candy (lifesavers, peppermints or jellybeans) ??- 3-4 glucose tablets ? Please call your primary care provider or us if you need assistance managing your hypoglycemia ([phone]).? Severe hypoglycemia: When hypoglycemia or low blood sugar is not treated and you need someone to help you recover.?Glucagon can be injected following the instructions in the Glucagon kit.? Please call [phone] if the person is unconscious or glucagon is not sufficient or available! ?? Scheduled Follow-Up Appointments Tuesday 8:40 AM EST ?? With: Divya Dan MD Where: [facility] [address] [address]- Status: Pending Tuesday 11:00 AM EDT ?? With: Forest Jiménez MD Where: [facility] [address] [place] [address] [address] [place] [address]- Status: Pending Follow-Up Appointments Follow up Appointment - Ordered?-- 3 months, 10/09/24 9:13:00 EST Future Orders Hemoglobin A1C (Monitoring) - Once, *Est. 10/10/23, Order for Today?? Lipid Panel - Routine, Once, *Est. 10/10/23, Future Order?? Comprehensive Metabolic Panel - Routine, Once, *Est. 10/10/23, Future Order?? CBC w/ Differential - Once, *Est. 10/10/23, Future Order?? PSA Screen - Once, *Est. 10/10/23, Order for Today?? Microalbumin Urine (Urine Microalbumin) - Routine, Once, 02/28/24 14:50:00 EDT, Single or RecurringFuture Order, [facility], Urine?? Medications The list below reflects the information in our records and provided by you today along with any changes made during this visit. Please continue your medications until treatment is completed or stopped by your provider. If this is different from the information you have or there are other questions,please contact the prescribing provider. What How Much When Instructions Changed Durable Medical Equipment (Freestyle geneva 3 reader) See instructions E10.9 Freestyle geneva 3 reader ?? Changed Durable Medical Equipment (Freestyle geneva 3 sensor) See instructions Freestyle geneva 3 sensor, 1 every 14 days, 90-day supply. ??E10.9 ?? Pickup at [facility] Changed Durable Medical Equipment (Pen Mingo, 31 G x 8 mm BD Ultra Fine III) See instructions to use with insulin 5 times/ day per day( 90 day supply)E11.65 ?? Changed Insulin Glargine (Toujeo Max SoloStar 300 units/ mL subcutaneous solution) 110 unit(s) Subcutaneous Injection Daily Duration: 90 Days Pickup at [facility] Changed Insulin Lispro (Humalog Kwik Pen 100 units/ mL subcutaneous injection) See instructions Sliding Scale Comments 100 - 149 ?? 4 units Call if less than 70 150 - 199 ?? 6 units 200 - 249 ?? 8 units 250 - 299 ??10 units 300 - 349 ?? 12units 350 - 399 ??14 ??units Call if greater than 400 ?? Max Daily dose 42 units, 90-day supply ?? Pickup at [facility] Changed Meclizine (meclizine 25 mg oral tablet) 1 tab(s) Oral 3 times a day as needed for as needed for dizziness PRN ?? Changed Metformin (metFORMIN 850 mg oral tablet) 1 tab(s) Oral Twice a day Duration: 90 Days Pickup at [facility] Unchanged Amlodipine (amLODIPine 10 mg oral tablet) 1 tab(s) Oral Daily Unchanged Aspirin (aspirin 81 mg oral enteric coated tablet) 1 tab(s) Oral Daily Unchanged Atorvastatin (atorvastatin 40 mg oral tablet) 1 tab(s) Oral Daily Unchanged Chlorthalidone (chlorthalidone 25 mg oral tablet) 1 tab(s) Oral Daily Unchanged Cyanocobalamin (Eligen B12 1000 mcg oral tablet) 1 tab(s) Oral Daily on an empty stomach ?? Unchanged dapagliflozin (Farxiga 5 mg oral tablet) See instructions 1 tablet By Mouth Daily. E11.9 ?? Unchanged Fenofibrate (fenofibrate 134 mg oral capsule) 1 capsule Oral Daily Unchanged Ferrous Sulfate (ferrous sulfate 325 mg oral tablet) 1 tab(s) Oral Twice a day Unchanged Glucagon (Glucagon Emergency Kit for Low Blood Sugar 1 mg injection) 1 Milligram Subcutaneous Injection Once To be use for hypoglycemic emergency by family member or accompanying person, if blood glucoses less than 60 and unconscious. ??Please call 911 after use glucagon pen. ?? Unchanged Lisinopril (lisinopril 40 mg oral tablet) 1 tab(s) Oral Daily Unchanged Metoprolol (Metoprolol Succinate ER 50 mg oral tablet, extended release) See instructions TAKE 1 TABLET BY MOUTH EVERY DAY ?? Unchanged Miscellaneous Rx (BD UF MINI PEN NEEDLE [id number]) See instructions TO CHECK BLOOD SUGAR TWICE PER DAY ?? Unchanged Nystatin (nystatin 303596 u oral tablet) 1 tab(s) Oral Twice a day Unchanged Pantoprazole (pantoprazole 40 mg oral delayed release tablet) 1 tab(s) Oral Daily Unchanged Sertraline (sertraline 100 mg oral tablet) 1 tab(s) Oral Daily Pharmacy Information [facility]: [address] [facility] [address] [place], [place] [id number] [phone] Test Performed Below is a partial list of the tests performed during your Visit. You may have had other tests and procedures not included in this list. Please discuss all test results with your provider. POC GLUCOSE ([facility]) POC HBA1C ([facility]) Lab Test Results Below is a partial list of the most recent Laboratory test results done during your Visit. You may have had other tests and procedures not included in this list. Please discuss all test results with your provider. Test Name Test Result Date/Time POC Glucose ([facility]) 215 mg/dL 10/09/2024 08:20 EST POC HBA1C ([facility]) 7.4 % 10/09/2024 08:21 EST Medications and Immunizations Administered Medications Given During Visit No medications given during this visit.?? Allergies (NKA means No Known Allergies) NKA Common Emergency Awareness Tips IS IT A STROKE? Act FAST and Check for these signs: FACE Does the face look uneven? ARM Does one arm drift down? SPEECH Does their speech sound strange? TIME Call at any sign of stroke ?? Heart Attack Signs Chest discomfort: Most heart attacks involve discomfort in the center of the chest and lasts more than a few minutes, or goes away and comes back. It can feel like uncomfortable pressure, squeezing, fullness or pain. Discomfort in upper body: Symptoms can include pain or discomfort in one or both arms, back, neck, jaw or stomach. Shortness of breath: With or without discomfort. Other signs: Breaking out in a cold sweat, nausea, or lightheaded. Remember, MINUTES DO MATTER. If you experience any of these heart attack warning signs, call to get immediate medical attention! ?? Smoking can increase your chances of developing chronic health problems and can cause harmful effects to other family members in your house. If you smoke, you are strongly encouraged to quit. Please call [employer] [facility] at [phone] or [phone] ([phone]) or log in to [email or web address] for referrals to smoking cessation programs. ?? The National Suicide Prevention Hotline is available 07/03 if you or someone you know needs to find a reason to keep living. By calling 4-788-552-ohrr (6169) you'll be connected to a skilled, trained counselor at a crisis center in your area. [facility] You can view and manage your care through the patient portal or by using a health care guillermo of your choosing. [employer] is a website that allows you to securely view your medical information including your hospital discharge summary, office visit summaries, medications and follow-up visits. You can also request appointments, renew medications, and request access to your medical information using a health care guillermo of your choosing, or just ask a question. You can enroll at [email or web address] or register during your next office visit. [facility], in keeping with [facility] guidance, no longer requires face masks for staff, patientsor visitors in most situations. Similiar to time spent indoors at other locations, there is the chance that you were exposed to repiratory viruses during your time with us (such as flu or COVID-19). If you develop symptoms concerning for a viral respiratory infection, please seek testing (and treatment if indicated) from your medical provider or home test kit. ?? Disclaimer: The information provided is of a general nature and is intended to be used in conjunction with the recommendations and advice of your health care practitioner. Every effort has been made to ensure that the information provided is accurate and complete at the time it is provided to you however, as your needs change, or, as new information becomes available, different or additional instructions may be required. ?? If you have questions, please consult with your primary care provider or pharmacist, as appropriate. This information is not intended to serve as substitution for assessment and evaluation by a qualified health care provider. If you do not have a primary care provider, you may find a [facility] provider by calling [facility] at [phone]. Patient Care team information Care Team Personnel Name: Gamal Faustin RN Position: [facility] RN Member Role: Primary Care Nurse Name: Divya Dan MD Position: [facility] Physician - Primary Care Member Role: PCP [address] [facility] [place] [address]- [place] [employer]: Name: Alvaro Gabriel RN Position: S RN Member Role: Primary Care Nurse Care Team Related Persons Name: MITESH VELASCO Name: TEODORA MENSAH Insurance Providers Guarantor name: TRIPP VELASCO [facility] Information #: 1 Payer: [employer] Member Number: [id number] Policy Number: NA Group Number: [id number] Health Plan Information #: 2 Payer: [employer] Member Number: [id number] Policy Number: NA Group Number: [id number]
--- OUTSIDE RECORDS SUMMARY | 2024-10-22 06:45 | XMS_ITS | Clinical Summary ---
Author Organization [facility] it Address [address] [place] [address] Care Team Providers Care Director Of Entertainment Name Role Phone Divya Dan MD Primary Care Provider Immunizations Name Administration Dates Next Due Moderna SARS-CoV-2 COVID-19, mRNA, LNP-S, preservative free 12/04/2020,11/06/2020 Surgical History Surgery Date Site/Laterality Comments TONSILLECTOMY PROCEDURE: HISTORICAL TONSILLECTOMY NASAL SEPTUM SURGERY PROCEDURE: SD SEPTOPLASTY/SUBMUCOUS RESECJ W/WO CARTILAGE GRF TOTAL KNEE ARTHROPLASTY 08/2009 PROCEDURE: HISTORICAL TOTAL KNEE REPLACE; COMMENT: Left COLONOSCOPY 05/28/2008 PROCEDURE: HISTORICAL COLONOSCOPY; COMMENT: Up to cecum, adequate preparation, colon polyp removed:polypoid colonic mucosa(no adenoma), mild diverticulosis UPPER GASTROINTESTINAL ENDOSCOPY 1998 PROCEDURE: SD UPPER GI ENDOSCOPY PERFORMED; COMMENT: Dr. Britton for heartburn UPPER GASTROINTESTINAL ENDOSCOPY 11/17/2018 PROCEDURE: SD UPPER GI ENDOSCOPY PERFORMED; COMMENT: normal on omeprazole 20 mg a day. COLONOSCOPY 05/09/2019 PROCEDURE: HISTORICAL COLONOSCOPY; COMMENT: Minimal diverticulosis, otherwise normal. Medical History Medical History Date Comments Type II or unspecified type diabetes mellitus without mention of complication, not stated as uncontrolled DX:Type II or unspecified ty pe diabetes mellitus without mention of complication, not stated as uncontrolled Pure hypercholesterolemia DX:Pur e hypercholesterolemia Esophageal reflux DX:Esophageal reflux Anxiety state, unspecified DX:An xiety state, unspecified Essential hypertension, benign D X:Essential hypertension, benign Obesity, unspecified 12/11/2008 DX:Obesity, unspecified Gallstone 03/04/2008 DX:Gallstone Fatty liver disease, nonalcoholic DX:Fatty liver disease, nonalcoholic Left inguinal hernia DX:Left ing uinal hernia Renal cyst DX:Renal cyst; C OMMENT: [address] 06/2016 History of total knee replacement 02/16/2017 DX:History of total knee replacement; COMMENT: Left - 2010 Thoracic aortic aneurysm (CMS/HCC) 11/29/2018 DX:Thoracic aortic aneurysm (HCC); COMMENT: 12/01 4.0 ascending aorta and 3.1 cm transverse aorta Ascending aorta dilation (CMS/HCC) 03/17/2021 DX:Ascending aorta dilation (HCC) Family History Medical History Relation Name Comments No Known Problems Aunt No Known Problems Brother 1 No Known Problems Brother 2 No Known Problems Daughter No Known Problems Father No Known Problems Maternal Grandfather No Known Problems Maternal Grandmother Lung cancer Mother diabetes No Known Problems Other No Known Problems Paternal Grandfather No Known Problems Paternal Grandmother No Known Problems Sister No Known Problems Uncle Blindness Neg Hx Cataracts Neg Hx Glaucoma Neg Hx Macular degeneration Neg Hx Strabismus Neg Hx Relation Name Status Comments Aunt Brother 1 Schizophrenic, penile cancer? Brother 2 Alive OR 45 , CABG 55 ; dementia Daughter Alive 4 healthy Father Cancer UK Maternal Grandfather UK Maternal Grandmother Mother Cancer Lung , D m Other Paternal Grandfather Paternal Grandmother Sister Alive healthy Uncle Social History Tobacco Use Types Packs/Day Years Used Date Smoking Tobacco: Former Cigarettes 1 20 0 08/15/1964 - 08/15/1984 Smokeless Tobacco: Never Alcohol Use Standard Drinks/Week Comments Yes 0 (1 standard drink = 0.6 oz pur e alcohol) Sex and Gender Information Value Date Recorded Sex Assigned at Not on file Legal Sex Male 11:02 AM EST Gender Identity Not on file Sexual Orientation Not on file Obstetrics History Last Filed Vital Signs Vital Sign Reading Time Taken Comments Blood Pressure 134/76 07/23/2022 8:50 AM EST Sit ting L Arm Pulse 56 07/23/2022 8:50 AM EST Temperature - - Respiratory Rate - - Oxygen Saturation - - Inhaled Oxygen Concentration - - Weight 108 kg (238 lb) 07/23/2022 8:50 AM EST Height 177.8 cm (5' 10 ) 07/23/2022 8:50 AM EST Body Mass Index 34.15 07/23/2022 8:50 AM EST Plan of Treatment Health Maintenance Due Date Last Done Comments Diabetes: Annual GFR (Glomerular Filtration Rate) 1951 Diabetes: Annual Foot Exam 1961 Diabetes: Annual Retina Eye Exam 1961 Hepatitis A Vaccines (1 of 2 - Risk 2-dose series) 1970 Zoster Vaccines (1 of 2) 2001 Hepatitis B Vaccines (1 of 3 - Risk 3-dose series) 2011 RSV Immunization Patients 60+ Years Old (1 - Risk 60-74 years 1-dose series) 2011 Abdominal Aortic Aneurysm (AAA) Screen 07/23/2022 Cholesterol Screening (Lipid Panel) 07/23/2022 Colorectal Cancer Screening: Colonoscopy 07/23/2022 Depression Screening 07/23/2022 Falls Risk Assessment 07/23/2022 Hepatitis C Screening 07/23/2022 Social Influencers of Health Screening 07/23/2022 Hypertension/CHF/CAD Annual BMP Blood Test 07/25/2022 Diabetes: Annual Urine Albumin-Creatinine Ratio (uACR) 07/30/2022 Diabetes: Blood Sugar Control Test (HGBA1C) 07/30/2022 COVID-19 Vaccine (4 - season) 2024 06/22/2021, 12/04/2020, 11/06/2020 Influenza Vaccine (#1) 2024 0, 04/28/2019, 05/04/2017, Additional history exists DTaP,Tdap,and Td Vaccines (4 - Td or Tdap) 10/28/2030 10/28/2020, 09/01/2009, 04/26/2000 Pneumococcal Vaccine: 50+ Years Completed 03/26/2016, 03/11/2015, 09/01/2009, Additional history exists HIB Vaccines Aged Out No longer eligi ble based on patient's age to complete this topic HPV Vaccines Aged Out No longer eligi ble based on patient's age to complete this topic IPV Vaccines Aged Out No longer eligi ble based on patient's age to complete this topic MMR Vaccines Aged Out No longer eligi ble based on patient's age to complete this topic Meningococcal ACWY Vaccine Aged Out N o longer eligible based on patient's age to complete this topic Meningococcal B Vacine Aged Out No lo nger eligible based on patient's age to complete this topic RSV Immunization Patients Under 20 months Aged Out No longer eligible based on patient's age to complete this topic Varicella Vaccines Aged Out No longer eligible based on patient's age to complete this topic Care Teams Director Of Entertainment Relationship Specialty Start Date End Date Divya Dan MD PCP - General 07/21/22
--- NOTE | 2024-10-22 06:49 | MHC.EDTECH ---
ekg done at 647 and given to provider
--- NOTE | 2024-10-22 06:52 | PC.NURSE ---
Ondina Banerjee, pt's can tiger text her
[2024-10-22 07:07] LABS: MANUAL DIFF FLAG NO
[2024-10-22 07:15] LABS: Basophils Percent Auto 0.7 % (0-2); Eosinophils Absolute Auto 0.1 X10*3/uL (0.0-0.4); Eosinophils Percent Auto 2.6 % (0-4); Hematocrit 37.9 % (42.0-52.0); Hemoglobin 12.6 g/dl (14.0-18.0); Imm Gran Abs Auto 0.03 X10*3/uL (0.00-0.03); Imm Gran Pct Auto 0.6 % (0.0-0.4); Lymphocytes Percent Auto 36.2 % (20-40); Mean Corpuscular HGB Conc 33.2 g/dl (31.0-36.0); Mean Corpuscular Hemoglobin 27.9 pg (27.0-33.0); Mean Corpuscular Volume 83.8 fL (80.0-98.0); Mean Platelet Volume 10.6 fL (9.4-12.4); Monocytes Absolute Auto 0.6 X10*3/uL (0.1-1.2); Monocytes Percent Auto 10.9 % (2-11); Neutrophils Absolute Auto 2.7 x10*3/uL (2.0-8.3); Platelet Count 191 X10*3/uL (160-400); Red Blood Count 4.52 X10*6/uL (4.60-5.80); Red Cell Distribution Width 13.2 % (11.0-16.0); White Blood Count 5.4 X10*3/uL (4.8-10.8)
[2024-10-22 07:29] LABS: Alanine Aminotransferase 18 U/L (0-40); Albumin Level 4.1 g/dL (3.5-5.0); Alkaline Phosphatase 40 U/L (39-117); Anion Gap 12 (12-20); Aspartate Amino Transferase 18 U/L (5-37); Bilirubin Total 0.4 mg/dL (0.0-1.0); Blood Urea Nitrogen 26 mg/dL (9-16); Calcium 9.4 mg/dL (8.4-10.2); Carbon Dioxide 26 mmol/L (22-29); Chloride 108 mmol/L (96-108); Creatinine Clr Calc Pharmacy 80.4; Estimated Glomerular Filt Rate > 60; Glucose Random 165 mg/dL (60-115); Potassium 3.8 mmol/L (3.3-5.1); Sodium 142 mmol/L (135-145); Total Protein 7.3 g/dL (6.5-8.0)
[2024-10-22 07:38] LABS: Troponin-I High Sensitivity < 2.7 ng/L (<3.5-35.0)
--- NOTE | 2024-10-22 07:39 | ED_ITS ---
HPI - Dizziness General Chief Complaint: Dizziness Stated Complaint: Sudden on set of Nausea & dizziness, FAST Ed-0 Time Seen by Provider: 10/22/24 07:27 Source: patient Mode of arrival: ambulatory Limitations: no limitations History of Present Illness HPI Narrative: 74-year-old male past medical history of anemia hypertension diabetes recurrent vertigo who presents emergency department with vertigo he was able to ambulate well to the EMS stretcher brought in patient had similar presentations back in January and February of last year and followed up with the ENT patient did get relief with Zofran and meclizine in combination patient denies any falls or injuries he denies chest pain cough fever MD elicited complaint: dizziness Related Data Previous Rx's ?Medication ?Instructions ?Recorded ondansetron 4 mg disintegrating 4 mg PO Q8H PRN nausea and 01/15/24 tablet vomiting #10 tabs lorazepam 1 mg tablet (Ativan) 1 mg PO DAILY PRN nausea and 03/09/24 vomiting #10 tabs meclizine 25 mg tablet 25 mg PO TID PRN dizziness #60 tabs 03/09/24 ondansetron 4 mg disintegrating 4 mg PO Q8H PRN nausea and 03/09/24 tablet vomiting #20 tabs meclizine 12.5 mg tablet 12.5 mg PO TID PRN dizziness #60 10/22/24 tabs ondansetron 4 mg disintegrating 4 mg PO Q6H #14 tabs 10/22/24 tablet Allergies Allergy/AdvReac Type Severity Reaction Status Date / Time No Known Allergies Allergy Verified 10/22/24 06:43 Review of Systems 2 Review of Systems: Review of systems: General: Dizziness Patient denies any fever chills recent illness or falls Musculoskeletal: Denies back pain or body aches or other injuries HEENT: denies headache, runny nose, ear pain Respiratory: denies shortness of breath, cough Cardiovascular: no chest pain or palpitations : denies dysuria, frequency Abdomen: no nausea vomiting denies abdominal pain Extremities: no swelling, no pain Skin: no diaphoresis Yes all other systems are reviewed and are negative [facility] Past Medical History Medical History Vertigo Social History Social History Smoked in Last 30 Days: No Advance Directives: No Advance Directives Information Provided: Yes Do you have a plan to hurt others: No Plan Physical Exam 2 Vital Signs: Vital Signs: Last Vital Signs Temp 97.6 F 10/22/24 06:39 Pulse 96 10/22/24 06:39 Resp 18 10/22/24 06:39 BP 165/64 H 10/22/24 06:39 Pulse Ox 99 10/22/24 06:39 O2 Del Method Room Air 10/22/24 06:39 BMI result Body Mass Index 34.4 Neurological exam: CN II- XII tested. Patient is alert and oriented to person place and time. Patient has no dysphagia or dysarthia, denies good vision in all four vision ch no nystagmus on exam, good strength to upper and lower extremities with normal reflexes to brachioradialis, wrist, patella and achilles. Negative romberg, good finger to nose and heel to hernández. General: Well-appearing well-nourished in no signs of distress HEENT: Normocephalic atraumatic Neck: No signs of JVD, no masses no tenderness or lymphadenopathy Cardiovascular: Regular rate and rhythm Respiratory: Clear to auscultation bilaterally Abdomen: Soft nontender no masses Extremities: Normal pedal pulses no signs of edema Skin: Dry warm no rashes Back: No tenderness full ROM Course Course Course Narrative: Patient was watched in the ER symptoms have resolved some Zofran and meclizine patient is feeling much better is okay with the plan to go home. Medications Administered Generic Name Dose Route Start Last Admin Trade Name Freq PRN Reason Stop Dose Admin Sodium Chloride 1,000 mls @ 999 mls/hr 10/22/24 07:45 10/22/24 08:10 Ns IV 10/22/24 08:45 999 mls/hr .Q1H1M HOLA Administration Discontinued Medications Generic Name Dose Route Start Last Admin Trade Name Freq PRN Reason Stop Dose Admin Meclizine HCl 25 mg 10/22/24 07:38 10/22/24 08:09 Meclizine Hcl 25 Mg Tablet PO 10/22/24 07:39 25 mg ONCE ONE Administration Ondansetron HCl 4 mg 10/22/24 07:38 10/22/24 08:09 Ondansetron Hcl 4 Mg/2 Ml Vial IVPUSH 10/22/24 07:39 4 mg ONCE ONE Administration Medical Decision Making Medical Decision Making [facility] Narrative: I will check labs and treat the patient as he treated previously with Zofran meclizine fluids I will reassess the patient since the patient is feeling better patient had a CT of his head that can January of last year has follow up with Neurology shortly Differential Diagnosis Differential Diagnoses: The differential diagnosis associated with the presentation includes Dizziness nausea vomiting diarrhea dehydration electrolyte abnormality anemia Lab Data [facility] Lab Attestation statement: I reviewed the patient's lab results. 10/22/24 06:57 10/22/24 06:57 Labs: Lab Results 10/22/24 Range/Units 06:57 WBC 5.4 (4.8-10.8) X10*3/uL RBC 4.52 L (4.60-5.80) X10*6/uL Hgb 12.6 L (14.0-18.0) g/dl Hct 37.9 L (42.0-52.0) % MCV 83.8 (80.0-98.0) fL MCH 27.9 (27.0-33.0) pg MCHC 33.2 (31.0-36.0) g/dl RDW 13.2 (11.0-16.0) % Plt Count 191 (160-400) X10*3/uL MPV 10.6 (9.4-12.4) fL Immature Gran % (Auto) 0.6 H (0.0-0.4) % Neut % (Auto) 49.0 (45-73) % Lymph % (Auto) 36.2 (20-40) % Stark % (Auto) 10.9 (2-11) % Eos % (Auto) 2.6 (0-4) % Baso % (Auto) 0.7 (0-2) % Lymph # (Auto) 2.0 (1.2-4.9) X10*3/uL Stark # (Auto) 0.6 (0.1-1.2) X10*3/uL Eos # (Auto) 0.1 (0.0-0.4) X10*3/uL Baso # (Auto) 0.0 (0.0-0.2) X10*3/uL Abs Immat Gran (auto) 0.03 (0.00-0.03) X10*3/uL Absolute Neuts (auto) 2.7 (2.0-8.3) x10*3/uL Absolute Nucleated RBC 0.000 (0.0-0.012) X10*3/uL Nucleated RBC % (auto) 0.0 (0.0-0.2) /100WBC Sodium 142 (135-145) mmol/L Potassium 3.8 (3.3-5.1) mmol/L Chloride 108 (96-108) mmol/L Carbon Dioxide 26 (22-29) mmol/L Anion Gap 12 (12-20) BUN 26 H (9-16) mg/dL Creatinine 1.01 (0.5-1.4) mg/dL Estim Creat Clear Calc 80.4 Estimated GFR > 60 Random Glucose 165 H (60-115) mg/dL Calcium 9.4 (8.4-10.2) mg/dL Total Bilirubin 0.4 (0.0-1.0) mg/dL AST 18 (5-37) U/L ALT 18 (0-40) U/L Alkaline Phosphatase 40 (39-117) U/L Troponin I High Sens < 2.7 (<3.5-35.0) ng/L Total Protein 7.3 (6.5-8.0) g/dL Albumin 4.1 (3.5-5.0) g/dL Independent Interpretation I performed an independent interpretation of an: EKG Interpretation: Rate 60 normal sinus rhythm normal intervals no signs of ischemia no change from previous interpreted by me Discharge Plan Discharge Clinical Impression: Vertigo Patient Disposition: Home, Self-Care Instructions: Vertigo (DC) Additional Instructions: You were seen today for dizziness. You have normal labs and were given zofran for nausea and meclizine for dizziness both were sent to your pharmacy. If you have any other concerns please return to the ER Prescriptions: New meclizine 12.5 mg tablet 12.5 mg PO TID PRN (Reason: dizziness) Qty: 60 0RF ondansetron 4 mg tablet,disintegrating 4 mg PO Q6H Qty: 14 0RF No Action ondansetron 4 mg tablet,disintegrating 4 mg PO Q8H PRN (Reason: nausea and vomiting) Qty: 10 0RF meclizine 25 mg tablet 25 mg PO TID PRN (Reason: dizziness) Qty: 60 1RF ondansetron 4 mg tablet,disintegrating 4 mg PO Q8H PRN (Reason: nausea and vomiting) Qty: 20 1RF lorazepam [Ativan] 1 mg tablet 1 mg PO DAILY PRN (Reason: nausea and vomiting) Qty: 10 0RF Print Language: Brazilian
[2024-10-22] MEDS: ondansetron HCL 4 MG/2 ML VIAL IVPUSH (08:09)
[2024-10-22] MEDS: Meclizine HCl 25 MG TABLET PO (08:09)
[2024-10-22] MEDS: 0.9 % Sodium Chloride 1,000 ML 999 ML IV (08:10)
[2024-10-22 10:13] VITALS: BP 135/79; PULSE 57; RESP 18; TEMP 36.8; O2SAT 96
== END 2024-10-22 10:14 | disposition home or self-care (01) ==
PROVIDERS: Emergency Provider Student in an Organized Health Care Education/Training Program; PCP Internal Medicine
DX: R42 Dizziness and giddiness (principal); E11.9 Type 2 diabetes mellitus without complications; I10 Essential (primary) hypertension; E78.00 Pure hypercholesterolemia, unspecified; Z79.899 Other long term (current) drug therapy
CPT/HCPCS: 36415; 80053; 84484; 85025; 93005; 96361; 96374; 99284; J2405

== ENCOUNTER → 2024-10-22 06:47 | Outpatient (BNV) | payer MEDICARE, SELFPAY | PROVIDERS: Emergency Provider Student in an Organized Health Care Education/Training Program; PCP Internal Medicine; Visit Provider Internal Medicine | DX: R42 Dizziness and giddiness (principal) | CPT/HCPCS: 93010 ==

== ENCOUNTER 2024-10-26 06:59 | Emergency (ER) | payer MEDICARE, SELFPAY ==
--- NOTE | 2024-10-26 07:01 | ED.NAVMDI ---
HPI - Nausea/Vomiting/Diarrhea General Chief complaint: Dizziness Stated complaint: DIZZINESS, N/V Time Seen by Provider: 10/26/24 07:01 Source: patient and EMS Mode of arrival: EMS Limitations: no limitations History of Present Illness ED Provider: Corrie Dhillon PA-C HPI Narrative: 74 yo male with history of vertigo presents to the ER from home via EMS for evaluation of nausea, vomiting and dizziness that started at 5am when he woke up. He reports symptoms feels exactly like his previous vertigo attacks. He was seen here in the ER on 10/22 for the same. He has been taking meclizine 12.5 mg two times per day. He reports his dizziness and nausea are worse when he moves his head side to side. No weakness, numbness, tingling, headache. He is waiting to see a neurologist but they canceled his appointment. MD elicited complaint: nausea and vomiting Onset (ago): hour(s) Description of vomiting: food contents Associated nausea: Yes Associated abdominal pain: No Location of pain: none Exacerbating factors: other (moving head) Relieving factors: other (closing eyes) Associated symptoms: denies other symptoms Related Data Home Medications ?Medication ?Instructions ?Recorded ?Confirmed amlodipine 10 mg tablet 10 mg PO DAILY 10/22/24 aspirin 81 mg tablet,delayed 81 mg PO DAILY 10/22/24 release atorvastatin 40 mg tablet 40 mg PO DAILY 10/22/24 chlorthalidone 25 mg tablet 25 mg PO DAILY 10/22/24 dapagliflozin propanediol 5 mg 5 mg PO DAILY 10/22/24 tablet (Farxiga) fenofibrate micronized 134 mg 134 mg PO DAILY 10/22/24 capsule glimepiride 1 mg tablet 1 mg PO DAILY 10/22/24 lisinopril 40 mg tablet 40 mg PO DAILY 10/22/24 metformin 850 mg tablet 850 mg PO 3XD 10/22/24 Previous Rx's ?Medication ?Instructions ?Recorded ondansetron 4 mg disintegrating 4 mg PO Q8H PRN nausea and 01/15/24 tablet vomiting #10 tabs lorazepam 1 mg tablet (Ativan) 1 mg PO DAILY PRN nausea and 03/09/24 vomiting #10 tabs meclizine 25 mg tablet 25 mg PO TID PRN dizziness #60 tabs 03/09/24 ondansetron 4 mg disintegrating 4 mg PO Q8H PRN nausea and 03/09/24 tablet vomiting #20 tabs meclizine 12.5 mg tablet 12.5 mg PO TID PRN dizziness #60 10/22/24 tabs ondansetron 4 mg disintegrating 4 mg PO Q6H #14 tabs 10/22/24 tablet meclizine 25 mg tablet 25 mg PO BID PRN dizziness #20 tabs 10/26/24 Allergies Allergy/AdvReac Type Severity Reaction Status Date / Time No Known Allergies Allergy Verified 10/26/24 07:11 Review of Systems Review of Systems: Yes all other systems are reviewed and are negative Gastrointestinal: Gastrointestinal: Reports nausea PMFSH Past Medical History Medical History (Updated 10/26/24 @ 14:08 by VÍCTOR Johnson) Venous insufficiency Uncontrolled diabetes mellitus with hyperglycemia Renal cyst TOÑO (obstructive sleep apnea) Nuclear sclerosis of both eyes Mild depression Left inguinal hernia IBS (irritable bowel syndrome) Hypertension associated with diabetes Hypercholesteremia GERD (gastroesophageal reflux disease) Generalized OA Former tobacco use Fatty liver disease, nonalcoholic Erectile dysfunction Diabetes with retinopathy Diabetes Chronic vertigo Anxiety Aneurysm, thoracic aortic Vertigo Surgical History S/P total knee arthroplasty H/O endoscopy Hx of colonoscopy H/O total knee replacement Hx of cholecystectomy Social History Social History (Updated 10/22/24 @ 15:22 by KETAN Soler) Alcohol intake: never Patient Tobacco Use Status: Never used Tobacco Smoked in Last 30 Days: No Use of substances other than those prescribed or required for medical reasons: No Advance Directives: No Advance Directives Information Provided: Yes Physical Exam Vital Signs: Vital Signs: Last Vital Signs Temp 98.2 F 10/26/24 12:07 Pulse 64 10/26/24 12:07 Resp 16 10/26/24 12:07 BP 130/61 10/26/24 12:07 Pulse Ox 97 10/26/24 12:07 O2 Del Method Room Air 10/26/24 12:07 BMI result Body Mass Index 35.6 Appearance: Alert. Oriented X3. No acute distress. Head: normocephalic, atraumatic. Eyes: Pupils equal, round and reactive to light. no nystagmus ENT: Pharynx normal. No tonsillar swelling or exudate. Normal inspection to the bilateral TMs. hearing loss on the left Neck: Normal inspection. Neck supple. CVS: Normal heart rate and rhythm. Pulses normal. +murmur Respiratory: No respiratory distress. Breath sounds normal. Abdomen: Soft and nontender. +BS x4 Skin: Skin warm and dry. Normal skin color. Normal skin turgor. No rashes. Extremities: No lower extremity edema. No joint swelling. Neuro/psych: Oriented X 3. No motor deficit. No sensory deficit. CN II-XII intact. Normal speech and cognition. Normal finger to nose and heel to hernández bilaterally. Medications Administered Discontinued Medications Generic Name Dose Route Start Last Admin Trade Name Freq PRN Reason Stop Dose Admin Meclizine HCl 50 mg 10/26/24 07:15 10/26/24 07:29 Meclizine Hcl 25 Mg Tablet PO 10/26/24 07:16 50 mg ONCE ONE Administration Ondansetron HCl 4 mg 10/26/24 07:15 10/26/24 07:29 Ondansetron Hcl 4 Mg/2 Ml Vial IVPUSH 10/26/24 07:16 4 mg ONCE ONE Administration Medical Decision Making Medical Decision Making [facility] Narrative: 74 yo male with history of BPPV here with N/V and dizziness with head movement that started when he got up this morning. exam is reassuring. low suspicion for stroke. he had recent CT head, no need to repeat today given zofran and meclizine. pt observed and on re-evaluation he had symptoms resolved. seen by PT. stable for d/c home with PT referral and neuro referral. he has PCP appointment at 2pm today Differential Diagnosis Differential Diagnoses: The differential diagnosis associated with the presentation includes BPPV, central vertigo, posterior stroke, gastroenteritis, dehydration, KATHLEEN Admission/Observation Consideration of admission/observation: Escalation of care including admission/observation considered Lab Data [facility] Lab Attestation statement: I reviewed the patient's lab results. stable mild anemia, no acute metabolic derangement 10/26/24 07:21 10/26/24 08:18 Labs: Lab Results 10/26/24 10/26/24 10/26/24 Range/Units 07:21 08:18 09:04 WBC 6.4 (4.8-10.8) X10*3/uL RBC 4.60 (4.60-5.80) X10*6/uL Hgb 12.9 L (14.0-18.0) g/dl Hct 37.3 L (42.0-52.0) % MCV 81.1 (80.0-98.0) fL MCH 28.0 (27.0-33.0) pg MCHC 34.6 (31.0-36.0) g/dl RDW 13.2 (11.0-16.0) % Plt Count 164 (160-400) X10*3/uL MPV 11.3 (9.4-12.4) fL Immature Gran % (Auto) 0.6 H (0.0-0.4) % Neut % (Auto) 52.7 (45-73) % Lymph % (Auto) 32.9 (20-40) % [place] % (Auto) 10.2 (2-11) % Eos % (Auto) 2.8 (0-4) % Baso % (Auto) 0.8 (0-2) % Lymph # (Auto) 2.1 (1.2-4.9) X10*3/uL [place] # (Auto) 0.7 (0.1-1.2) X10*3/uL Eos # (Auto) 0.2 (0.0-0.4) X10*3/uL Baso # (Auto) 0.1 (0.0-0.2) X10*3/uL Abs Immat Gran (auto) 0.04 H (0.00-0.03) X10*3/uL Absolute Neuts (auto) 3.4 (2.0-8.3) x10*3/uL Absolute Nucleated RBC 0.000 (0.0-0.012) X10*3/uL Nucleated RBC % (auto) 0.0 (0.0-0.2) /100WBC Sodium 140 (135-145) mmol/L Potassium 3.9 (3.3-5.1) mmol/L Chloride 106 (96-108) mmol/L Carbon Dioxide 25 (22-29) mmol/L Anion Gap 13 (12-20) BUN 25 H (9-16) mg/dL Creatinine 0.90 (0.5-1.4) mg/dL Estim Creat Clear Calc 91.7 Estimated GFR > 60 Random Glucose 239 H (60-115) mg/dL Calcium 9.2 (8.4-10.2) mg/dL Magnesium 1.9 (1.6-2.6) mg/dL Total Bilirubin 0.4 (0.0-1.0) mg/dL Direct Bilirubin 0.1 (0.0-0.5) mg/dL AST 20 (5-37) U/L ALT 19 (0-40) U/L Alkaline Phosphatase 41 (39-117) U/L Total Protein 7.3 (6.5-8.0) g/dL Albumin 4.1 (3.5-5.0) g/dL Urine Color Yellow Urine Appearance Clear Urine pH 5.0 (5.0-9.0) Ur Specific [place] 1.020 (1.005-1.025) Urine Protein Negative (Neg-Trace) mg/dL Urine Glucose (UA) >=1000 H (Negative) mg/dL Urine Ketones Negative (Negative) mg/dL Urine Blood Negative (Negative) Urine Nitrite Negative (Negative) Ur Leukocyte Esterase Negative (Negative) Urine RBC 0-2 (0-2) /HPF Urine WBC 0-5 (0-5) /HPF Ur Squamous Epith Cells 0-2 (0-2) /HPF Urine Bacteria None Seen (None Seen) Hyaline Casts 0-2 (0-2) /LPF Independent Interpretation I performed an independent interpretation of an: EKG Interpretation: ekg wtih normal sinus rhythm, HR 60 bpm, normal VT interval, normal QTc External Record Review External record reviewed: Outpatient record, Prior outpatient labs and Prior outpatient radiology Prescription Management I considered prescription management with: Other (antiemetic) Chronic Conditions Patient?s care impacted by: Other (vertigo) Critical Care Time Critical Care Time Critical Care Time: No Discharge Plan Discharge Clinical Impression: Benign paroxysmal positional vertigo Patient Disposition: Home, Self-Care Instructions: Benign Paroxysmal Positional Vertigo (ED) Additional Instructions: take the prescribed meclizine 25-50 mg as needed for dizziness follow up with your doctor today - ask about a MRI and therapy for vertigo If you develop new or worsening symptoms call 911 or come back to the ER for further evaluation. Prescriptions: New meclizine 25 mg tablet 25 mg PO BID PRN (Reason: dizziness) Qty: 20 0RF No Action ondansetron 4 mg tablet,disintegrating 4 mg PO Q8H PRN (Reason: nausea and vomiting) Qty: 10 0RF meclizine 25 mg tablet 25 mg PO TID PRN (Reason: dizziness) Qty: 60 1RF ondansetron 4 mg tablet,disintegrating 4 mg PO Q8H PRN (Reason: nausea and vomiting) Qty: 20 1RF lorazepam [Ativan] 1 mg tablet 1 mg PO DAILY PRN (Reason: nausea and vomiting) Qty: 10 0RF meclizine 12.5 mg tablet 12.5 mg PO TID PRN (Reason: dizziness) Qty: 60 0RF ondansetron 4 mg tablet,disintegrating 4 mg PO Q6H Qty: 14 0RF amlodipine 10 mg tablet 10 mg PO DAILY aspirin 81 mg tablet,delayed release (DR/EC) 81 mg PO DAILY atorvastatin 40 mg tablet 40 mg PO DAILY chlorthalidone 25 mg tablet 25 mg PO DAILY dapagliflozin propanediol [Farxiga] 5 mg tablet 5 mg PO DAILY fenofibrate micronized 134 mg capsule 134 mg PO DAILY glimepiride 1 mg tablet 1 mg PO DAILY lisinopril 40 mg tablet 40 mg PO DAILY metformin 850 mg tablet 850 mg PO 3XD Interventions: ED Discharge Assessment Last Done: 10/26/24 12:07 Discharge Date/Time: 10/26/24 12:08 Print Language: Grenadian
[2024-10-26 07:08] VITALS: BP 148/57; BP 180/80; PULSE 65; PULSE 70; RESP 18; TEMP 36.5; O2SAT 97; BMI 35.6
--- NOTE | 2024-10-26 07:15 | ECG_ITS ---
Test Reason : DIZINESS Blood Pressure : */* mmHG Vent. Rate : 60 BPM Atrial Rate : 60 BPM P-R Int : 180 ms QRS Dur : 100 ms QT Int : 426 ms P-R-T Axes : 41 33 41 degrees QTcB Int : 426 ms Normal sinus rhythm Normal ECG When compared with ECG of 22-Oct-2024 06:47, No significant change was found Referred By: Bonny Dhillon Electronically Signed By: KENDAL PATINO
--- OUTSIDE RECORDS SUMMARY | 2024-10-26 07:22 | XMS_ITS | Clinical Summary ---
Author Organization [facility] Address [address] [place] [address] Care Team Providers Care Advanced Nursing Professor Name Role Phone Unavailable Primary Care Provider [...]
--- OUTSIDE RECORDS SUMMARY | 2024-10-26 07:22 | XMS_ITS | Clinical Summary ---
Author Organization [facility] it Address [address] [place] [address] Care Team Providers Care Concession Attendant Name Role Phone Divya Dan MD Primary Care Provider Immunizations Name Administration Dates Next Due Moderna SARS-CoV-2 COVID-19, mRNA, LNP-S, preservative free 12/04/2020,11/06/2020 Surgical History Surgery Date Site/Laterality Comments TONSILLECTOMY PROCEDURE: HISTORICAL TONSILLECTOMY NASAL SEPTUM SURGERY PROCEDURE: ME SEPTOPLASTY/SUBMUCOUS RESECJ W/WO CARTILAGE GRF TOTAL KNEE ARTHROPLASTY 08/2009 PROCEDURE: HISTORICAL TOTAL KNEE REPLACE; COMMENT: Left COLONOSCOPY 05/28/2008 PROCEDURE: HISTORICAL COLONOSCOPY; COMMENT: Up to cecum, adequate preparation, colon polyp removed:polypoid colonic mucosa(no adenoma), mild diverticulosis UPPER GASTROINTESTINAL ENDOSCOPY 1998 PROCEDURE: ME UPPER GI ENDOSCOPY PERFORMED; COMMENT: Dr. Britton for heartburn UPPER GASTROINTESTINAL ENDOSCOPY 11/17/2018 PROCEDURE: ME UPPER GI ENDOSCOPY PERFORMED; COMMENT: normal on [...] 1 Schizophrenic, penile cancer? Brother 2 Alive [place] 45 , CABG 55 ; dementia Daughter [...] age to complete this topic Care Teams Concession Attendant Relationship Specialty Start Date End Date Divya Dan MD PCP - General 07/21/22
--- OUTSIDE RECORDS SUMMARY | 2024-10-26 07:22 | XMS_ITS ---
Author Organization [facility] Address [address] [facility] [address] [place] [address] Care Team Providers Care Gallery Or Museum Curator Name Role Phone Divya Dan Primary Care Provider TANGELA Graham Unavailable [phone] Allergies No Known Allergies REASON FOR VISIT [...] tablet Orally Once a day Active Nystatin 169885 UNIT 1 tablet Orally Thr ee times [...] Problem Status W/U Status Risk Notes Problem 31456283 Type 2 diabetes mellitus with other circulatory complications (E11.59) Active confirmed Vital Signs Temperature 97.4 degrees Fahrenheit 07/16/20 24 Heart Rate 58 /min 07/16/2024 Respiratory Rate 16 /min 07/16/2024 Height 5ft 10in in 07/16/2024 Weight 244.5 lbs 07/16/2024 BMI 35.08 kg/m2 07/16/2024 Encounters Encounter Location Date Provider Diagnosis [facility] [address] [facility] [address] [place] [address] 07/16/2024 TANGELA ADAMS Ingrown right big toenail [...] * Abiodun BANERJEEDOB:1950 ([age] yo M)Acc No.[id number]:07/16/2024 Patient:?Abiodun BANERJEE Provider:?Tangela Adams DPM :1950???Age:74 Y???Sex:Male Dick e:07/16/2024 Phone: Address:[address] [place] [address], [id number] Pcp:Divya Dan Subjective: * Chief Complaints: * [...] 1 tablet Orally Once a day Nystatin 201899 UNIT Tablet 1 tablet Orally Three times [...] tablet Orally Once a day Taking Nystatin 892193 UNIT Tablet 1 tablet Orally Three times [...] the nail dorsally and plantarly. Using an [place] [facility] nail splitter, the medial border was cut. [...] tolerated the procedure well. ? * Procedure Codes:?89971 REMOV AL OF NAIL PLATE, Modifiers: T5 * Follow Up:?2 Weeks * Billing Information: * Visit Code:? 64891 Office Visit, New Pt., Level 3. Modifiers: 25 * Procedure Codes:? 43676 REMOVAL OF NAIL PLATE. Modifiers: T5 * Sign off status: Completed true * Provider:?Tangela Adams DPM Date:? 07/16/2024 Generated for Linette chaudhary/Armando/Sabaitting on:?10/26/2024 07:22 AM EDT History and Physical Notes * [...]
--- OUTSIDE RECORDS SUMMARY | 2024-10-26 07:22 | XMS_ITS ---
Author Organization [facility] Address [address] [address] Care Team Providers Care Rock Breaker Name Role Phone Divya Dan Primary Care Provider NADIA Graham [phone] REASON FOR VISIT toenail biopsy Encounters Encounter Location Date Provider Diagnosis [facility] [address] [address] 07/23/2024 NADIA RODRIGUEZ Plan Of Treatment No Information Progress Notes * Abiodun BANERJEEDOB:1950 ([age] yo M)Acc No.[id number]:07/23/2024 Patient:?Abiodun BANERJEE :1950???Age:74 Y???Sex:Male Phone: Address:[address] [place], [place] [address] [place] [address] * true * Date:? Generated for Linette chaudhary/Armando/eTransmitting on:?10/26/2024 07:22 AM EDT
--- OUTSIDE RECORDS SUMMARY | 2024-10-26 07:23 | XMS_ITS | Patient Health Record ---
Author Organization [facility] Address [address] [facility] [address] [place] [address] Care Team Providers Care Geoscientist Name Role Phone Divya Dan Primary Care Provider NADIA Graham Unavailable [phone] Allergies No Known Allergies Reason For Referral [...] tablet Orally Once a day Active Nystatin 837376 UNIT 1 tablet Orally Thr ee times a day Active Doxycycline Monohydrate 100 MG 1 tablet Orally Once a day Not-Taking Problems Problem Type SNOMED Code ICD Code Onset Dates Problem Status W/U Status Risk Notes Problem 46681099 Type 2 diabetes mellitus with other circulatory complications (E11.59) Active confirmed Vital Signs Heart Rate 58 /min 07/16/2024 Temperature 97.4 degrees Fahrenheit 07/16/2024 Respiratory Rate 16 /min 07/16/2024 Height 5ft 10in in 07/16/2024 Weight 244.5 lbs 07/16/2024 BMI 35.08 kg/m2 07/16/2024 Encounters Encounter Location Date Provider Diagnosis [facility] [address] [address] 07/16/2024 NADIA RODRIGUEZ Ingrown right big toenail L60.0 ; Pain in right toe(s) M79.674 ; Onychomycosis B35.1 and Type 2 diabetes mellitus with other circulatory complications E11.59 [facility] [address] [address] 07/23/2024 NADIA RODRIGUEZ Assessments Encounter Date Diagnosis [...] Date [employer] [address] [place] [address] [phone] [id number] Abiodun Banerjee Self - patient is the [...]
[2024-10-26 07:24] LABS: MANUAL DIFF FLAG NO
[2024-10-26 07:26] LABS: Basophils Absolute Auto 0.1 X10*3/uL (0.0-0.2); Basophils Percent Auto 0.8 % (0-2); Eosinophils Absolute Auto 0.2 X10*3/uL (0.0-0.4); Eosinophils Percent Auto 2.8 % (0-4); Hematocrit 37.3 % (42.0-52.0); Hemoglobin 12.9 g/dl (14.0-18.0); Imm Gran Abs Auto 0.04 X10*3/uL (0.00-0.03); Imm Gran Pct Auto 0.6 % (0.0-0.4); Lymphocytes Absolute Auto 2.1 X10*3/uL (1.2-4.9); Lymphocytes Percent Auto 32.9 % (20-40); Mean Corpuscular HGB Conc 34.6 g/dl (31.0-36.0); Mean Corpuscular Volume 81.1 fL (80.0-98.0); Mean Platelet Volume 11.3 fL (9.4-12.4); Monocytes Absolute Auto 0.7 X10*3/uL (0.1-1.2); Monocytes Percent Auto 10.2 % (2-11); Neutrophils Absolute Auto 3.4 x10*3/uL (2.0-8.3); Neutrophils Percent Auto 52.7 % (45-73); Platelet Count 164 X10*3/uL (160-400); Red Cell Distribution Width 13.2 % (11.0-16.0); White Blood Count 6.4 X10*3/uL (4.8-10.8)
[2024-10-26] MEDS: ondansetron HCL 4 MG/2 ML VIAL IVPUSH (07:29)
[2024-10-26] MEDS: Meclizine HCl 25 MG TABLET 50 MG PO (07:29)
[2024-10-26 08:27] VITALS: BP 129/60; PULSE 59; RESP 16; TEMP 36.1; O2SAT 97
[2024-10-26 08:42] LABS: Alanine Aminotransferase 19 U/L (0-40); Albumin Level 4.1 g/dL (3.5-5.0); Alkaline Phosphatase 41 U/L (39-117); Anion Gap 13 (12-20); Aspartate Amino Transferase 20 U/L (5-37); Bilirubin Direct 0.1 mg/dL (0.0-0.5); Bilirubin Total 0.4 mg/dL (0.0-1.0); Blood Urea Nitrogen 25 mg/dL (9-16); Calcium 9.2 mg/dL (8.4-10.2); Carbon Dioxide 25 mmol/L (22-29); Chloride 106 mmol/L (96-108); Creatinine Clr Calc Pharmacy 91.7; Estimated Glomerular Filt Rate > 60; Glucose Random 239 mg/dL (60-115); Magnesium 1.9 mg/dL (1.6-2.6); Potassium 3.9 mmol/L (3.3-5.1); Sodium 140 mmol/L (135-145); Total Protein 7.3 g/dL (6.5-8.0)
[2024-10-26 09:12] LABS: Appearance Urine Clear; Color Urine Yellow; Glucose Urine UA >=1000 mg/dL (Negative); Leukocyte Esterase Urine Negative (Negative); Nitrite Urine Negative (Negative); UMIC TRIGGER UACC YES; Urine Blood Negative (Negative); Urine Ketones Negative (Negative); Urine Protein Negative (Neg-Trace)
[2024-10-26 09:17] LABS: Bacteria Urine None Seen (None Seen); Hyaline Casts Urine 0-2 /LPF (0-2); RBC Urine 0-2 /HPF (0-2); Squamous Epithelial Cell Urine 0-2 /HPF (0-2); WBC Urine 0-5 /HPF (0-5)
[2024-10-26 10:00] VITALS: BP 120/58; PULSE 64; RESP 12; TEMP 36.3; O2SAT 98
[2024-10-26 11:27] VITALS: BP 120/58; PULSE 64; O2SAT 98
[2024-10-26 11:57] VITALS: BP 130/61; PULSE 64; RESP 16; TEMP 36.8; O2SAT 97
[2024-10-26 12:07] VITALS: BP 130/61; PULSE 64; RESP 16; TEMP 36.8; O2SAT 97
== END 2024-10-26 12:08 | disposition home or self-care (01) ==
PROVIDERS: Physician Assistant; Emergency Provider Emergency Medicine; PCP Internal Medicine
DX: H81.13 Benign paroxysmal vertigo, bilateral (principal); R11.2 Nausea with vomiting, unspecified; R26.81 Unsteadiness on feet; Z79.899 Other long term (current) drug therapy
CPT/HCPCS: 36415; 80048; 80076; 81001; 83735; 85025; 93005; 96374; 97162; 99284; J2405

== ENCOUNTER → 2024-10-26 07:15 | Outpatient (BNV) | payer MEDICARE, SELFPAY | PROVIDERS: Emergency Provider Emergency Medicine; PCP Internal Medicine; Visit Provider Internal Medicine | DX: R42 Dizziness and giddiness (principal) | CPT/HCPCS: 93010 ==

== ENCOUNTER 2024-10-30 11:37 | Observation (INO) | payer MEDICARE, SELFPAY ==
--- NOTE | ~2024-10-30 | CT_ITS ---
EXAMINATION: CT HEAD WITHOUT THEN WITH IV CONTRAST HISTORY: dizziness, L hearing loss, vomiting, several month. TECHNIQUE: Helical CT of the head was performed before and after the administration of intravenous contrast per standard departmental protocol. Coronal and sagittal reformats of the head were also evaluated. One or more of the following techniques was used for dose reduction: Automated exposure control, adjustment of the mA and/or kV according to patient size, use of iterative reconstruction technique. DLP: 1596 mGy-cm COMPARISON: Correlation is made with the prior unenhanced examination dated 01/15/2024. FINDINGS: BRAIN: Again seen is an old lacunar infarct of the left basal ganglia. There is mild prominence of the ventricular system and cortical sulci, consistent with atrophy. Periventricular and subcortical white matter hypodensities are noted which are nonspecific, but often seen in the setting of small vessel ischemic disease. There is no mass effect or midline shift. No intra- or extra-axial fluid collections are identified. There is no abnormal contrast enhancement. SINUSES: The visualized paranasal sinuses are clear. The mastoid air cells and middle ear cavities are well pneumatized. ORBITS: The visualized orbits are unremarkable. BONES/SOFT TISSUES: The extracranial soft tissues are unremarkable. The calvarium is intact. No suspicious lytic or sclerotic lesions. CT/CT head/brain wo/w IV con IMPRESSION: No acute intracranial abnormality. No abnormal contrast enhancement. Electronically signed by: Elkin Bryant MD 10/30/2024 01:01 PM EDT
--- NOTE | ~2024-10-30 | MR_ITS ---
CLINICAL HISTORY: VertigoPt was very claustrophobic. Repeat done, reminders given. Best images obtain ed MR Brain without gadolinium Comparison: CT/IL - CT HEAD/BRAIN WO/W IV CON - 10/30/24 12:28 EDT Findings: No restricted diffusion. No intracranial mass or hemorrhage. No midline shift. No hydrocephalus. Vascular flow voids are intact. Old ovoid lacunar infarct, left basal ganglia, stable Mild scattered T2 signal prolongation in the periventricular white matter Orbital contents are unremarkable. Small retention cyst within the right maxillary sinus, otherwise sinuses and mastoid air cells are clear. No focal bone lesion. IMPRESSION: No acute findings. Mild ischemic microangiopathy. 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
[2024-10-30 11:44] VITALS: BP 163/61; PULSE 78; RESP 20; TEMP 36.6; O2SAT 95; BMI 34.4
--- NOTE | 2024-10-30 11:48 | ECG_ITS ---
Test Reason : DIZZINESS Blood Pressure : */* mmHG Vent. Rate : 63 BPM Atrial Rate : 63 BPM P-R Int : 172 ms QRS Dur : 106 ms QT Int : 430 ms P-R-T Axes : 56 40 40 degrees QTcB Int : 440 ms Normal sinus rhythm Normal ECG When compared with ECG of 26-Oct-2024 07:20, No significant change was found Referred By: Jesusita Pinto Electronically Signed By: Kenyon Keller
[2024-10-30 11:57] LABS: MANUAL DIFF FLAG NO
[2024-10-30] MEDS: LORazepam 2 MG/ML VIAL 1 MG IVPUSH ×2 (11:57→15:39)
[2024-10-30] MEDS: ondansetron HCL 4 MG/2 ML VIAL IVPUSH (11:57)
[2024-10-30] MEDS: Lactated Ringers 1,000 ML 999 ML IV (11:57)
[2024-10-30 11:59] LABS: Basophils Percent Auto 0.5 % (0-2); Eosinophils Absolute Auto 0.2 X10*3/uL (0.0-0.4); Hematocrit 38.6 % (42.0-52.0); Hemoglobin 13.2 g/dl (14.0-18.0); Imm Gran Abs Auto 0.06 X10*3/uL (0.00-0.03); Imm Gran Pct Auto 0.8 % (0.0-0.4); Lymphocytes Percent Auto 39.3 % (20-40); Mean Corpuscular HGB Conc 34.2 g/dl (31.0-36.0); Mean Corpuscular Volume 81.8 fL (80.0-98.0); Mean Platelet Volume 10.8 fL (9.4-12.4); Monocytes Absolute Auto 0.7 X10*3/uL (0.1-1.2); Monocytes Percent Auto 9.4 % (2-11); Neutrophils Absolute Auto 3.6 x10*3/uL (2.0-8.3); Platelet Count 204 X10*3/uL (160-400); Red Blood Count 4.72 X10*6/uL (4.60-5.80); Red Cell Distribution Width 13.2 % (11.0-16.0); White Blood Count 7.6 X10*3/uL (4.8-10.8)
--- NOTE | 2024-10-30 12:07 | ED_ITS ---
HPI - Dizziness General Chief Complaint: Nausea/Vomiting/Diarrhea Stated Complaint: WEAKNESS DIZZINESS Source: patient, family, EMS and old records reviewed Mode of arrival: EMS Limitations: no limitations History of Present Illness ED Provider: QUIANA HARRIS Narrative: 74 yo male with PMH HTN, HLD, DM and dizziness on and off for 1 year - last CT scan showed possible hypodense cystic lesion left caudate - he reports he has seen ENT negative workup although has had hearing loss L ear abruptly woke up like that a few years ago, PT for vertigo but it didn't work, PCP waiting on referral appointment with Neurology. He notes every AM he wakes up from sleep even though he uses his CPAP and feels dizzy. He then tries to get up and the room is spinning and he vomits. Throughout the day he feels better but the last two weeks have been rough and today he cannot stop vomiting. He was just seen here on the and 14 of this month for the same and sent home with meclizine but there is no sig improvement in his symptoms. He denies CP/SOB, GIB symptoms. No recent trauma, travel, procedures. MD elicited complaint: dizziness and lightheadedness Onset (ago): month(s) (12) Timing: awoke with symptoms and intermittent Severity: severe Description: room spinning and lightheadedness Context: change in body position, exertion and at rest History of similar symptoms: Yes Exacerbating factors: movement/ambulation, change in body position and keeping eyes open Relieving factors: remaining still and keeping eyes closed Associated symptoms: nausea, vomiting and change in hearing Related Data Home Medications ?Medication ?Instructions ?Recorded ?Confirmed amlodipine 10 mg tablet 10 mg PO DAILY 10/22/24 aspirin 81 mg tablet,delayed 81 mg PO DAILY 10/22/24 release atorvastatin 40 mg tablet 40 mg PO DAILY 10/22/24 chlorthalidone 25 mg tablet 25 mg PO DAILY 10/22/24 dapagliflozin propanediol 5 mg 5 mg PO DAILY 10/22/24 tablet (Farxiga) fenofibrate micronized 134 mg 134 mg PO DAILY 10/22/24 capsule glimepiride 1 mg tablet 1 mg PO DAILY 10/22/24 lisinopril 40 mg tablet 40 mg PO DAILY 10/22/24 metformin 850 mg tablet 850 mg PO 3XD 10/22/24 Previous Rx's ?Medication ?Instructions ?Recorded ondansetron 4 mg disintegrating 4 mg PO Q8H PRN nausea and 01/15/24 tablet vomiting #10 tabs lorazepam 1 mg tablet (Ativan) 1 mg PO DAILY PRN nausea and 03/09/24 vomiting #10 tabs meclizine 25 mg tablet 25 mg PO TID PRN dizziness #60 tabs 03/09/24 ondansetron 4 mg disintegrating 4 mg PO Q8H PRN nausea and 03/09/24 tablet vomiting #20 tabs meclizine 12.5 mg tablet 12.5 mg PO TID PRN dizziness #60 10/22/24 tabs ondansetron 4 mg disintegrating 4 mg PO Q6H #14 tabs 10/22/24 tablet meclizine 25 mg tablet 25 mg PO BID PRN dizziness #20 tabs 10/26/24 Allergies Allergy/AdvReac Type Severity Reaction Status Date / Time No Known Allergies Allergy Verified 10/30/24 11:45 Review of Systems 2 Review of Systems: Constitutional : No Fever, No Chills, No Fatigue ENT/Mouth : No sore throat, No Rhinorrhea Eyes: No Eye Pain, No Swelling, No Redness Cardiovascular : No Chest Pain, No SOB, No Dyspnea on Exertion Respiratory : No Cough, No Sputum Gastrointestinal : pos Nausea, pos Vomiting, No Diarrhea, No abdominal Pain Genitourinary : No Dysuria, No Urinary Frequency, No Hematuria, Musculoskeletal : No joint pain, No Myalgias, No Joint Swelling Skin : No Skin Lesions, No rash Neuro : No Weakness, No Numbness, pos Dizziness, no Headache All other systems reviewed and are negative [facility] Past Medical History Attestation statement: The following information was validated with the patient. Source: old records reviewed Medical History Venous insufficiency Uncontrolled diabetes mellitus with hyperglycemia Renal cyst TOÑO (obstructive sleep apnea) Nuclear sclerosis of both eyes Mild depression Left inguinal hernia IBS (irritable bowel syndrome) Hypertension associated with diabetes Hypercholesteremia GERD (gastroesophageal reflux disease) Generalized OA Former tobacco use Fatty liver disease, nonalcoholic Erectile dysfunction Diabetes with retinopathy Diabetes Chronic vertigo Anxiety Aneurysm, thoracic aortic Vertigo Surgical History S/P total knee arthroplasty H/O endoscopy Hx of colonoscopy H/O total knee replacement Hx of cholecystectomy Social History Social History Alcohol intake: never Patient Tobacco Use Status: Never used Tobacco Smoked in Last 30 Days: No Use of substances other than those prescribed or required for medical reasons: No Advance Directives: No Advance Directives Information Provided: Yes Do you have a plan to hurt others: No Plan Physical Exam 2 Vital Signs: Vital Signs: Last Vital Signs Temp 97.8 F 10/30/24 11:44 Pulse 78 10/30/24 11:44 Resp 20 10/30/24 11:44 BP 163/61 H 10/30/24 11:44 Pulse Ox 95 10/30/24 11:44 BMI result Body Mass Index 34.4 Appearance: Alert. Oriented X3. active vomiting, eyes closed mild acute distress. Eyes: Pupils equal, round and reactive to light. R horizontal nystagmus mild when looking to the right ENT: Pharynx normal. Neck: Normal inspection. Neck supple. CVS: Normal heart rate and rhythm. Pulses normal. Respiratory: No respiratory distress. Breath sounds normal. Abdomen: Soft and non-tender. Skin: Skin warm and dry. Normal skin color. Normal skin turgor. Extremities: No lower extremity edema. No calf ttp Neuro: Oriented X 3. No motor deficit. No sensory deficit. CN2-12 intact Medications Administered Discontinued Medications Generic Name Dose Route Start Last Admin Trade Name Freq PRN Reason Stop Dose Admin Lactated Ringer's 1,000 mls @ 999 mls/hr 10/30/24 11:48 10/30/24 13:09 Lr IV 10/30/24 12:48 Infused .Q1H1M ONE Infusion Lorazepam 1 mg 10/30/24 11:48 10/30/24 11:57 Lorazepam 2 Mg/Ml Vial IVPUSH 10/30/24 11:49 1 mg STAT STA Administration Ondansetron HCl 4 mg 10/30/24 11:48 10/30/24 11:57 Ondansetron Hcl 4 Mg/2 Ml Vial IVPUSH 10/30/24 11:49 4 mg ONCE ONE Administration Medical Decision Making Medical Decision Making MDM Narrative: 74 yo male with PMH HTN, HLD, DM, TOÑO and CPAP compliant here with c/o chronic hearing loss, daily dizziness with n/v triggered by movements - he has no CP/SOB or GIB symptoms. He has no other deficits on exam. At this time I am going to obtain labs, CT head for mass though MRI would be more beneficial, IVF and IV zofran/ativan to suppress his symptoms. There are no infectious symptoms and this has been going on and off for months. Differential Diagnosis Differential Diagnoses: The differential diagnosis associated with the presentation includes vertigo, prior CVA, meniere's, brain mass, sleep disorder Admission/Observation Consideration of admission/observation: Escalation of care including admission/observation considered will admit given intractable n/v repeat IV nausea meds x 2 Consult Healthcare Provider Management of the patient was discussed with: Hospitalist (will admit) Lab Data MDM Lab Attestation statement: I reviewed the patient's lab results. 10/30/24 11:53 10/30/24 11:53 Labs: Lab Results 10/30/24 Range/Units 11:53 WBC 7.6 (4.8-10.8) X10*3/uL RBC 4.72 (4.60-5.80) X10*6/uL Hgb 13.2 L (14.0-18.0) g/dl Hct 38.6 L (42.0-52.0) % MCV 81.8 (80.0-98.0) fL MCH 28.0 (27.0-33.0) pg MCHC 34.2 (31.0-36.0) g/dl RDW 13.2 (11.0-16.0) % Plt Count 204 (160-400) X10*3/uL MPV 10.8 (9.4-12.4) fL Immature Gran % (Auto) 0.8 H (0.0-0.4) % Neut % (Auto) 48.0 (45-73) % Lymph % (Auto) 39.3 (20-40) % [place] % (Auto) 9.4 (2-11) % Eos % (Auto) 2.0 (0-4) % Baso % (Auto) 0.5 (0-2) % Lymph # (Auto) 3.0 (1.2-4.9) X10*3/uL [place] # (Auto) 0.7 (0.1-1.2) X10*3/uL Eos # (Auto) 0.2 (0.0-0.4) X10*3/uL Baso # (Auto) 0.0 (0.0-0.2) X10*3/uL Abs Immat Gran (auto) 0.06 H (0.00-0.03) X10*3/uL Absolute Neuts (auto) 3.6 (2.0-8.3) x10*3/uL Absolute Nucleated RBC 0.000 (0.0-0.012) X10*3/uL Nucleated RBC % (auto) 0.0 (0.0-0.2) /100WBC Sodium 139 (135-145) mmol/L Potassium 4.0 (3.3-5.1) mmol/L Chloride 104 (96-108) mmol/L Carbon Dioxide 24 (22-29) mmol/L Anion Gap 15 (12-20) BUN 20 H (9-16) mg/dL Creatinine 0.95 (0.5-1.4) mg/dL Estim Creat Clear Calc 85.5 Estimated GFR > 60 Random Glucose 200 H (60-115) mg/dL Calcium 9.5 (8.4-10.2) mg/dL Magnesium 1.8 (1.6-2.6) mg/dL Total Bilirubin 0.6 (0.0-1.0) mg/dL Direct Bilirubin 0.1 (0.0-0.5) mg/dL AST 23 (5-37) U/L ALT 23 (0-40) U/L Alkaline Phosphatase 45 (39-117) U/L Troponin I High Sens < 2.7 (<3.5-35.0) ng/L Total Protein 7.5 (6.5-8.0) g/dL Albumin 4.2 (3.5-5.0) g/dL Lipase 19 (8-78) U/L Independent Interpretation I performed an independent interpretation of an: EKG and CT Scan (no mass) Interpretation: Rate: 63 Rhythm: NSR [place]: normal Normal P waves. Normal [place]. Normal QRS complex. ST T wave : normal no MARISABEL qTC: 440 prior studies: no acute ischemia The study has been interpreted contemporaneously by me. . Radiology Impression Discussion of test interpretation with radiology: I have reviewed the radiologist's reading. Independent Historian Clinical information obtained from an independent historian. History obtained from or confirmed by: Spouse and EMS External Record Review External record reviewed: Inpatient record and Outpatient record Discharge Plan Discharge Clinical Impression: Dizziness, Intractable nausea and vomiting Patient Disposition: Admitted As Inpatient Prescriptions: No Action ondansetron 4 mg tablet,disintegrating 4 mg PO Q8H PRN (Reason: nausea and vomiting) Qty: 10 0RF meclizine 25 mg tablet 25 mg PO TID PRN (Reason: dizziness) Qty: 60 1RF ondansetron 4 mg tablet,disintegrating 4 mg PO Q8H PRN (Reason: nausea and vomiting) Qty: 20 1RF lorazepam [Ativan] 1 mg tablet 1 mg PO DAILY PRN (Reason: nausea and vomiting) Qty: 10 0RF meclizine 12.5 mg tablet 12.5 mg PO TID PRN (Reason: dizziness) Qty: 60 0RF ondansetron 4 mg tablet,disintegrating 4 mg PO Q6H Qty: 14 0RF meclizine 25 mg tablet 25 mg PO BID PRN (Reason: dizziness) Qty: 20 0RF amlodipine 10 mg tablet 10 mg PO DAILY aspirin 81 mg tablet,delayed release (DR/EC) 81 mg PO DAILY atorvastatin 40 mg tablet 40 mg PO DAILY chlorthalidone 25 mg tablet 25 mg PO DAILY dapagliflozin propanediol [Farxiga] 5 mg tablet 5 mg PO DAILY fenofibrate micronized 134 mg capsule 134 mg PO DAILY glimepiride 1 mg tablet 1 mg PO DAILY lisinopril 40 mg tablet 40 mg PO DAILY metformin 850 mg tablet 850 mg PO 3XD Print Language: Armenian
[2024-10-30 12:15] LABS: Alanine Aminotransferase 23 U/L (0-40); Albumin Level 4.2 g/dL (3.5-5.0); Alkaline Phosphatase 45 U/L (39-117); Anion Gap 15 (12-20); Aspartate Amino Transferase 23 U/L (5-37); Bilirubin Direct 0.1 mg/dL (0.0-0.5); Bilirubin Total 0.6 mg/dL (0.0-1.0); Blood Urea Nitrogen 20 mg/dL (9-16); Calcium 9.5 mg/dL (8.4-10.2); Carbon Dioxide 24 mmol/L (22-29); Chloride 104 mmol/L (96-108); Creatinine Clr Calc Pharmacy 85.5; Estimated Glomerular Filt Rate > 60; Glucose Random 200 mg/dL (60-115); Lipase 19 U/L (8-78); Magnesium 1.8 mg/dL (1.6-2.6); Sodium 139 mmol/L (135-145); Total Protein 7.5 g/dL (6.5-8.0)
[2024-10-30 12:21] LABS: Troponin-I High Sensitivity < 2.7 ng/L (<3.5-35.0)
[2024-10-30] MEDS: diphenhydrAMINE HCL 50 MG/ML VIAL 25 MG IVPUSH (14:15)
[2024-10-30] MEDS: Metoclopramide HCl 10 MG/2 ML VIAL IVPUSH (14:15)
--- NOTE | 2024-10-30 14:35 | PC.NURSE ---
pt remains nauseous despite previous medication administration. pt remedicated per provider order.
--- NOTE | 2024-10-30 14:40 | PM.IMHP ---
History of Present Illness Date of Service: 10/30/24 Chief Complaint: vertigo 74M PMH chronic vertigo, hypertension, diabetes, hyperlipidemia, obesity, TOÑO presented with severe vertigo and nausea vomiting. Patient presented for the 3rd time this week to the ED for severe worsening of his vertigo and nausea and vomiting. [place] and [place] maneuvers were negative, CT head on this presentation was unremarkable. Patient reports nausea and dizziness is worse in a.m. and improves throughout the day. Improved with meclizine. He has seen ENT in the past has diagnosed left-sided hearing loss also has reported tinnitus in left ear in the past, does not have any specific diagnosis for his symptoms. Review of Systems Review of Systems: Yes all other systems are reviewed and are negative [facility]LY [facility], [facility] Medical History Venous insufficiency Uncontrolled diabetes mellitus with hyperglycemia Renal cyst TOÑO (obstructive sleep apnea) Nuclear sclerosis of both eyes Mild depression Left inguinal hernia IBS (irritable bowel syndrome) Hypertension associated with diabetes Hypercholesteremia GERD (gastroesophageal reflux disease) Generalized OA Former tobacco use Fatty liver disease, nonalcoholic Erectile dysfunction Diabetes with retinopathy Diabetes Chronic vertigo Anxiety Aneurysm, thoracic aortic Vertigo Surgical History S/P total knee arthroplasty H/O endoscopy Hx of colonoscopy H/O total knee replacement Hx of cholecystectomy Social History Alcohol intake: never Patient Tobacco Use Status: Never used Tobacco Smoked in Last 30 Days: No Use of substances other than those prescribed or required for medical reasons: No Advance Directives: No Advance Directives Information Provided: Yes Do you have a plan to hurt others: No Plan Meds Allergies Allergy/AdvReac Type Severity Reaction Status Date / Time No Known Allergies Allergy Verified 10/30/24 11:45 Home Medications ?Medication ?Instructions ?Recorded ?Confirmed ?Last Taken ?Type amlodipine 10 mg tablet 10 mg PO DAILY 10/22/24 Unknown History aspirin 81 mg tablet,delayed 81 mg PO DAILY 10/22/24 Unknown History release atorvastatin 40 mg tablet 40 mg PO DAILY 10/22/24 Unknown History chlorthalidone 25 mg tablet 25 mg PO DAILY 10/22/24 Unknown History dapagliflozin propanediol 5 mg 5 mg PO DAILY 10/22/24 Unknown History tablet (Fabianxiga) fenofibrate micronized 134 mg 134 mg PO DAILY 10/22/24 Unknown History capsule glimepiride 1 mg tablet 1 mg PO DAILY 10/22/24 Unknown History lisinopril 40 mg tablet 40 mg PO DAILY 10/22/24 Unknown History metformin 850 mg tablet 850 mg PO 3XD 10/22/24 Unknown History Physical Exam Vital Signs and Narrative: Vital Signs: Last Vital Signs Temp 97.8 F 10/30/24 11:44 Pulse 78 10/30/24 11:44 Resp 20 10/30/24 11:44 BP 163/61 H 10/30/24 11:44 Pulse Ox 95 10/30/24 11:44 BMI result Body Mass Index 34.4 General: AO X 3, no acute distress Resp: CTA bilateral, no accessory muscles used CVS: S1,S2,RRR, murmur GI: soft, non tender, non distended Neuro: motor grossly intact, alert Psych: appropriate affect, appropriate insight Results Labs 10/30/24 11:53 10/30/24 11:53 Labs: Laboratory Results - last 24 hr 10/30/24 11:53 MCV 81.8 MCH 28.0 MCHC 34.2 RDW 13.2 Plt Count 204 MPV 10.8 Immature Gran % (Auto) 0.8 H Neut % (Auto) 48.0 Lymph % (Auto) 39.3 [place] % (Auto) 9.4 Eos % (Auto) 2.0 Baso % (Auto) 0.5 Lymph # (Auto) 3.0 [place] # (Auto) 0.7 Eos # (Auto) 0.2 Baso # (Auto) 0.0 Abs Immat Gran (auto) 0.06 H Absolute Neuts (auto) 3.6 Absolute Nucleated RBC 0.000 Nucleated RBC % (auto) 0.0 Anion Gap 15 Estim Creat Clear Calc 85.5 Estimated GFR > 60 Random Glucose 200 H Calcium 9.5 Magnesium 1.8 Total Bilirubin 0.6 Direct Bilirubin 0.1 AST 23 ALT 23 Alkaline Phosphatase 45 Total Protein 7.5 Albumin 4.2 Lipase 19 Imaging Radiologist's Impressions: Impressions Head CT 10/30/24 12:27 IMPRESSION: No acute intracranial abnormality. No abnormal contrast enhancement. Electronically signed by: Elkin Bryant MD 10/30/2024 01:01 PM EDT RP Assessment and Plan (1) Intractable nausea and vomiting: Status: Acute Plan 74M PMH chronic vertigo, hypertension, diabetes, hyperlipidemia, obesity, TOÑO presented with severe vertigo and nausea vomiting Intractable nausea and vomiting with vertigo, tinnitus, and left hearing loss Suspect M?ni?re?s - lasix, meclizine, low salt diet, PT rule out central cause - follow up MRI head murmur echo toño cpap at night htn amldoipine, lisinopril DM insulin sliding scale obesity weight loss recommended dvt prophylaxis - lovenox full code Quality Stroke Does the patient have a stroke diagnosis?: No VTE Prior VTE?: No VTE Risk Level:: Medical - moderate - high VTE Device Contraindication: Treatment Not Indicated VTE Drug Contraindication: N/A - Med Ordered
[2024-10-30 14:41] VITALS: BP 121/55; PULSE 63; RESP 20; TEMP 36.2; O2SAT 97
[2024-10-30] MEDS: Furosemide 40 MG TABLET PO (15:04)
[2024-10-30] MEDS: 0.9 % Sodium Chloride Flush 3 ML SYRINGE IVFLUSH (15:04)
--- NOTE | 2024-10-30 15:23 | PHA.MEDREC ---
Pharmacy Consult ? Medication Reconciliation Pharmacy has completed the medication reconciliation. Spoke to patient to confirm medication list. Per patient, he takes metformin 850 mg bid, humalog tidac per sliding scale, toujeo 55 units bid. He does not take glimepiride, lorazepam nor ondansetron. Last dose of medications was this morning 10/30/24 (he injected 55 units of toujeo and 8 units of humalog).
--- NOTE | 2024-10-30 15:51 | PC.NURSE ---
PT PREMEDICATED THEN TAKEN TO MRI
--- NOTE | 2024-10-30 16:12 | MHC.EDTECH ---
This pct went to record patients vitals. the patient is getting an MRI, i will record the patients vitals after they return. RN Aware
[2024-10-30 17:09] LABS: Glucose, Whole Blood 157 mg/dL (60-115)
[2024-10-30 17:18] VITALS: BP 114/45; PULSE 60; RESP 16; TEMP 36.6; O2SAT 96
[2024-10-30 19:37] LABS: Glucose, Whole Blood 289 mg/dL (60-115)
[2024-10-30 19:38] VITALS: BP 111/35; PULSE 78; RESP 18; TEMP 36.8; O2SAT 95
[2024-10-30 21:08] VITALS: BP 122/54; PULSE 68; RESP 16; TEMP 36.6; O2SAT 96
[2024-10-30] MEDS: Insulin Lispro 100 UNIT/ML 3 ML VIAL SUBCUT (21:13)
[2024-10-30] MEDS: Insulin Glargine,Hum.rec.anlog 100 UNIT/ML 10 ML VIAL 20 UNIT SUBCUT (21:14)
[2024-10-30 21:20] LABS: Glucose, Whole Blood 278 mg/dL (60-115)
[2024-10-30 22:23] LABS: Glucose, Whole Blood 241 mg/dL (60-115)
[2024-10-30 22:53] VITALS: BP 152/69; PULSE 62; RESP 18; TEMP 37.1; O2SAT 95
[2024-10-31] VITALS (9 sets, daily range): BP systolic 113–157; BP diastolic 56–71; PULSE 53–72; RESP 14–18; TEMP 36.5–37.2; O2SAT 94–97
--- NOTE | 2024-10-31 07:00 | CA_ITS ---
Transthoracic Echocardiogram Patient (Last, First, Middle): Abiodun Banerjee G Gender: Male Date of : 1950 Age: 74 Procedure Date: 10/31/2024 Procedure Type: Transthoracic Echocardiogram Location: S3E Height: 177.8 cm Weight: 108.86 kg BSA: 2.26 m2 Heart Rate: bpm BP: 121 / 55 mmHg Instrument Worker: Referring MD: Chivo Dewitt MD Symptoms: murmur Study Quality: Adequate ECG Rhythm: Sinus Conclusions: - Normal left ventricular size, thickness, systolic function, and wall motion. The visually estimated ejection fraction is between 55-60%. Diastolic function is normal for age. - Normal right ventricular cavity size and systolic function. - There is no aortic valve stenosis. - There is no mitral valve regurgitation. - There is mild dilatation of the ascending aorta measuring 3.90 cm. Findings Left Ventricle Normal left ventricular size, thickness, systolic function, and wall motion. The visually estimated ejection fraction is between 55-60%. Diastolic function is normal for age. Right Ventricle Normal right ventricular cavity size and systolic function. Atria The left atrium is normal in size. The right atrium is normal in size. Aortic Valve Normal aortic valve structure and function. There is no aortic valve stenosis. There is no aortic valve regurgitation. Mitral Valve The mitral valve appears normal. There is no mitral valve regurgitation. There is no mitral valve stenosis. Pulmonic Valve The pulmonic valve is likely normal. There is trace pulmonic valve regurgitation. Tricuspid Valve Normal tricuspid valve structure. There is trace tricuspid valve regurgitation. Normal right atrial pressure. There is no evidence of pulmonary hypertension. Great Vessels There is mild dilatation of the ascending aorta measuring 3.90 cm. The visualized portions of the pulmonary artery and branches are normal. Venous The inferior vena cava is normal in size. Pericardium/Pleural There is no evidence of pericardial effusion. Prior Study Comparison No prior study available for comparison. Measurements 2D Linear Measurements IVSd: 0.86 0.6-0.9/0.6-1.0 cm LVIDd: 4.85 3.9-5.3/4.2-5.9 cm LVIDd Index: 2.15 2.4-3.2/2.2-3.1 cm/m2 LVIDs: 2.98 2.0-3.6 cm LVPWd: 0.84 0.7-1.1 cm Ao Root: 3.70 2.1-3.5 cm LA Diam: 3.80 2.7-3.8/3.0-4.0 cm LAIDs Index: 1.68 1.5-2.3 cm/m2 LV Mass: 172.94 67-162/88-224 g LV Mass Index: 76.52 43-95/49-115 g/m2 LVOT Diam: 2.10 3.0+(-)1.3 cm Mitral Valve MV Pk E: 0.68 MV PK A: 0.72 MV Decel Time: 232.00 E/A: 1.00 E'Lateral: 11.50 E'Medial: 8.59 E/E' Med: 7.90 E/E' Lat: 5.90 PHT: 68.00 MVA PHT: 3.24 Decel [place]: 2.93 Aortic Valve AoV Pk N[place]or: 1.58 AoV Mn [place]: 1.00 AoV VTI: 0.36 AoV Pk Grad: 10.00 Aov Mn Grad: 5.00 LATASHA Cont.VTI: 2.61 LVOT LVOT Pk [place]: 1.13 LVOT Mn [place]: 0.76 LVOT VTI: 0.27 LVOT Pk Grad: 5.00 LVOT Mn Grad: 3.00 LVOT Diam: 2.10 LVOT Area: 3.46 Diastolic Function MV Pk E: 0.68 MV Pk A: 0.72 E/A: 1.00 E'Medial: 8.59 E/E' Med: 7.90 E' Laterial: 11.50 E/E' Lat: 5.90 Right Ventricle TAPSE (mm): 27.00 Tricuspid Valve TR Pk Nicanor: 1.71 TR Pk Grad: 12.00 RA Press: 3.00 RVSP: 15.00 Great Vessels Aorta Ao Root-2D: 3.70 2.0-3.7 cm Ao Asc: 3.90 2.1-3.4 cm Pulmonary Valve PV Pk Nicanor: 1.14 Peak PV Grad: 5.00 Updated in Other Vendor System with Status of Final Kenyon Keller MD electronically signed on 10/31/2024 4:43:52 PM with status of Final
[2024-10-31 07:33] LABS: Glucose, Whole Blood 137 mg/dL (60-115)
[2024-10-31] MEDS: amLODIPine Besylate 5 MG TABLET PO (08:01)
[2024-10-31] MEDS: lisinopriL 20 MG TABLET PO (08:01)
[2024-10-31] MEDS: Enoxaparin Sodium 40 MG/0.4 ML SYRINGE SUBCUT (08:02)
[2024-10-31] MEDS: Fenofibrate,Micronized 134 MG CAPSULE PO (08:02)
[2024-10-31] MEDS: Atorvastatin Calcium 40 MG TABLET PO (08:02)
[2024-10-31] MEDS: Sertraline HCL 100 MG TABLET PO (08:02)
[2024-10-31] MEDS: Furosemide 40 MG TABLET PO (08:02)
[2024-10-31] MEDS: Aspirin Enteric Coated 81 MG TABLET.DR PO (08:02)
[2024-10-31] MEDS: Metoprolol Succinate ER 50 MG TAB.ER.24H PO (08:02)
[2024-10-31] MEDS: 0.9 % Sodium Chloride Flush 3 ML SYRINGE IVFLUSH ×2 (08:06→17:14)
--- NOTE | 2024-10-31 10:39 | HO.PM.IMPN ---
Subjective Subjective Date of Service: 10/31/24 Interval History: seen and evaluated this morning Feels little better reports mild lightheadedness no other events Review of Systems Review of Systems: Yes all other systems are reviewed and are negative Physical Exam Vital Signs: Vital Signs: Last Vital Signs Temp 97.7 F 10/31/24 07:16 Pulse 72 10/31/24 09:39 Resp 14 10/31/24 07:16 BP 156/69 H 10/31/24 09:39 Pulse Ox 97 10/31/24 07:16 O2 Del Method Room Air 10/31/24 07:16 BMI result Body Mass Index 34.4 Const: Other: Constitutional : interactive, not in distress Ears: decrease hearing left ear Cardiovascular : no JVP, no lower extremity edema Respiratory : bilateral chest movement, not in resp distress Gastrointestinal: soft, lax, Non tender Skin : Warm, Dry Neurological : Alert & oriented , No focal deficit Objective Data Active Medications Acetaminophen (Acetaminophen 325 Mg Tablet) 650 mg PO Q6H PRN PRN Reason: Pain, Mild 1-3,fever,headache Amlodipine Besylate (Amlodipine Besylate 5 Mg Tablet) 5 mg PO DAILY [facility]; Protocol Last Admin: 10/31/24 08:01 Dose: 5 mg Documented By: JAMES Aspirin (Aspirin Enteric Coated 81 Mg Tablet.) 81 mg PO DAILY [facility] Last Admin: 10/31/24 08:02 Dose: 81 mg Documented By: JAMES Atorvastatin Calcium (Atorvastatin Calcium 40 Mg Tablet) 40 mg PO DAILY [facility] Last Admin: 10/31/24 08:02 Dose: 40 mg Documented By: JAMES Calcium Carbonate (Calcium Carbonate 750 Mg Tab.Chew) 750 mg PO Q4H PRN PRN Reason: Heartburn Dextrose (Dextrose 50 % 25 Gm/50 Ml Syringe) 25 gm IVPUSH Q15M PRN; Protocol PRN Reason: per Hypoglycemia Standing Ord. Enoxaparin Sodium (Enoxaparin Sodium 40 Mg/0.4 Ml Syringe) 40 mg SUBCUT Q24H [facility] Last Admin: 10/31/24 08:02 Dose: 40 mg Documented By: JAMES Fenofibrate (Fenofibrate,Micronized 134 Mg Capsule) 134 mg PO DAILY [facility] Last Admin: 10/31/24 08:02 Dose: 134 mg Documented By: JAMES Furosemide (Furosemide 40 Mg Tablet) 40 mg PO DAILY [facility]; Protocol Last Admin: 10/31/24 08:02 Dose: 40 mg Documented By: JAMES Glucose (Glucose Gel 15 Gm Gel..Gram.) 15 gm PO Q15M PRN; Protocol PRN Reason: per Hypoglycemia Standing Ord. Hydrochlorothiazide (Hydrochlorothiazide 25 Mg Tablet) 25 mg PO DAILY [facility]; Protocol Insulin Glargine (Insulin Glargine,Hum.Rec.Anlog 100 Unit/Ml 10 Ml Vial) 20 unit SUBCUT BID [facility] Last Admin: 10/30/24 21:14 Dose: 20 unit Documented By: RL Insulin Human Lispro (Insulin Lispro 100 Unit/Ml 3 Ml Vial) 0 unit SUBCUT QIDACHS [facility]; Protocol Last Admin: 10/31/24 07:47 Dose: Not Given Documented By: JAMES Non-Admin Reason: No Insulin Coverage Lisinopril (Lisinopril 20 Mg Tablet) 20 mg PO DAILY [facility]; Protocol Last Admin: 10/31/24 08:01 Dose: 20 mg Documented By: JAMES Lorazepam (Lorazepam 2 Mg/Ml Vial) 1 mg IVPUSH Q6H PRN PRN Reason: breakthrough nausea, MRI Last Admin: 10/30/24 15:39 Dose: 1 mg Documented By: LUIS ALBERTO Magnesium Hydroxide (Milk Of Magnesia 30 Ml Oral.Susp) 30 ml PO DAILY PRN PRN Reason: Constipation Meclizine HCl (Meclizine Hcl 25 Mg Tablet) 25 mg PO Q8H [facility] Melatonin (Melatonin 3 Mg Tablet) 6 mg PO BEDTIME PRN PRN Reason: Insomnia Metoprolol Succinate (Metoprolol Succinate Er 50 Mg Tab.Er.24h) 50 mg PO DAILY [facility]; Protocol Last Admin: 10/31/24 08:02 Dose: 50 mg Documented By: JAMES Sertraline HCl (Sertraline Hcl 100 Mg Tablet) 100 mg PO DAILY [facility] Last Admin: 10/31/24 08:02 Dose: 100 mg Documented By: JAMES Sodium Chloride (0.9 % Sodium Chloride Flush 3 Ml Syringe) 3 ml IVFLUSH QSHIFT [facility] Last Admin: 10/31/24 08:06 Dose: 3 ml Documented By: JAMES Labs 10/30/24 11:53 10/30/24 11:53 Labs: Laboratory Results - last 24 hr 10/30/24 10/30/24 10/30/24 11:53 17:05 19:33 MCV 81.8 MCH 28.0 MCHC 34.2 RDW 13.2 Plt Count 204 MPV 10.8 Immature Gran % (Auto) 0.8 H Neut % (Auto) 48.0 Lymph % (Auto) 39.3 Bullock % (Auto) 9.4 Eos % (Auto) 2.0 Baso % (Auto) 0.5 Lymph # (Auto) 3.0 Bullock # (Auto) 0.7 Eos # (Auto) 0.2 Baso # (Auto) 0.0 Abs Immat Gran (auto) 0.06 H Absolute Neuts (auto) 3.6 Absolute Nucleated RBC 0.000 Nucleated RBC % (auto) 0.0 Anion Gap 15 Estim Creat Clear Calc 85.5 Estimated GFR > 60 POC Glucose 157 H 289 H Random Glucose 200 H Calcium 9.5 Magnesium 1.8 Total Bilirubin 0.6 Direct Bilirubin 0.1 AST 23 ALT 23 Alkaline Phosphatase 45 Total Protein 7.5 Albumin 4.2 Lipase 19 10/30/24 10/30/24 10/31/24 21:12 22:18 07:18 MCV MCH MCHC RDW Plt Count MPV Immature Gran % (Auto) Neut % (Auto) Lymph % (Auto) Bullock % (Auto) Eos % (Auto) Baso % (Auto) Lymph # (Auto) Bullock # (Auto) Eos # (Auto) Baso # (Auto) Abs Immat Gran (auto) Absolute Neuts (auto) Absolute Nucleated RBC Nucleated RBC % (auto) Anion Gap Estim Creat Clear Calc Estimated GFR POC Glucose 278 H 241 H 137 H Random Glucose Calcium Magnesium Total Bilirubin Direct Bilirubin AST ALT Alkaline Phosphatase Total Protein Albumin Lipase Assessment and Plan (1) Intractable nausea and vomiting: Status: Acute (2) Dizziness: Status: Acute (3) Vertigo: Status: Acute Plan 74M PMH chronic vertigo, hypertension, diabetes, hyperlipidemia, obesity, TOÑO presented with severe vertigo and nausea vomiting Intractable nausea and vomiting with vertigo, tinnitus, and 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
[2024-10-31] MEDS: Meclizine HCl 25 MG TABLET PO ×2 (10:43→18:00)
[2024-10-31] MEDS: hydroCHLOROthiazide 25 MG TABLET PO (10:43)
[2024-10-31] MEDS: Insulin Glargine,Hum.rec.anlog 100 UNIT/ML 10 ML VIAL 20 UNIT SUBCUT ×2 (10:47→20:13)
[2024-10-31 11:12] LABS: Glucose, Whole Blood 240 mg/dL (60-115)
[2024-10-31] MEDS: Insulin Lispro 100 UNIT/ML 3 ML VIAL SUBCUT ×3 (13:32→20:14)
[2024-10-31 16:26] LABS: Glucose, Whole Blood 211 mg/dL (60-115)
[2024-10-31 19:56] LABS: Glucose, Whole Blood 192 mg/dL (60-115)
[2024-11-01] MEDS: Meclizine HCl 25 MG TABLET PO ×2 (02:05→10:28)
[2024-11-01 03:42] VITALS: BP 109/59; PULSE 54; RESP 18; TEMP 36.5; O2SAT 96
--- NOTE | 2024-11-01 04:30 | PC.NURSE ---
Pt c/o of feeling more lightheadedness especially when turning to his R side. MD Torrez notified of the situation. No new orders were given at this time. Pt has Hx of chronic vertigo, on HOLA Meclizine, last dose given at 02:05. Pt educated by this RN to call for assistance OOB if feeling lightheadedness. Will continue to monitor.
[2024-11-01 07:37] LABS: Glucose, Whole Blood 162 mg/dL (60-115)
[2024-11-01 08:00] VITALS: BP 134/73; PULSE 53; RESP 16; TEMP 36.4; O2SAT 96
[2024-11-01] MEDS: Insulin Lispro 100 UNIT/ML 3 ML VIAL SUBCUT (08:39)
[2024-11-01] MEDS: Insulin Glargine,Hum.rec.anlog 100 UNIT/ML 10 ML VIAL 20 UNIT SUBCUT (08:39)
[2024-11-01] MEDS: Enoxaparin Sodium 40 MG/0.4 ML SYRINGE SUBCUT (08:40)
[2024-11-01] MEDS: Metoprolol Succinate ER 50 MG TAB.ER.24H PO (08:43)
[2024-11-01] MEDS: 0.9 % Sodium Chloride Flush 3 ML SYRINGE IVFLUSH (08:43)
[2024-11-01] MEDS: lisinopriL 20 MG TABLET PO (08:44)
[2024-11-01] MEDS: Aspirin Enteric Coated 81 MG TABLET.DR PO (08:44)
[2024-11-01] MEDS: Furosemide 40 MG TABLET PO (08:44)
[2024-11-01] MEDS: Sertraline HCL 100 MG TABLET PO (08:44)
[2024-11-01] MEDS: Fenofibrate,Micronized 134 MG CAPSULE PO (08:44)
[2024-11-01] MEDS: hydroCHLOROthiazide 25 MG TABLET PO (08:45)
[2024-11-01] MEDS: Atorvastatin Calcium 40 MG TABLET PO (08:45)
[2024-11-01] MEDS: amLODIPine Besylate 5 MG TABLET PO (08:45)
--- NOTE | 2024-11-01 10:37 | MHC.CM.PN ---
Patient is discharged today to home with services. Patient has arranged for transport home. [facility] was not able to accept the patient due to Insurance. A referral has been sent to [facility]. [facility] is accepted by the agency.
--- NOTE | 2024-11-01 10:39 | P.DS_ITS ---
DS: Providers Provider Date of Service: 11/01/24 Date of admission: 10/30/24 14:42 Date of discharge: 11/01/24 Primary care physician: Divya Dan MD DS: Diagnosis Discharge Diagnosis (1) Intractable nausea and vomiting: Status: Acute (2) Dizziness: Status: Acute (3) Vertigo: Status: Acute DS: Summary Hospital Course Hospital Course: Admission note HPI 74M PMH chronic vertigo, hypertension, diabetes, hyperlipidemia, obesity, TOÑO presented with severe vertigo and nausea vomiting. Patient presented for the 3rd time this week to the ED for severe worsening of his vertigo and nausea and vomiting. Kar-Hallpike and Celina maneuvers were negative, CT head on this presentation was unremarkable. Patient reports nausea and dizziness is worse in a.m. and improves throughout the day. Improved with meclizine. He has seen ENT in the past has diagnosed left-sided hearing loss also has reported tinnitus in left ear in the past, does not have any specific diagnosis for his symptoms. 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 Controlled by scheduled meclizine, low salt diet, PT evaluation who recommended outpatient PT. He also had as needed Ativan for dizziness with fair response as vertigo resolved and he was able to ambulate with no reported dizziness. MRI head negative for any acute findings. He will need ENT follow up and Contrasted MRI for evaluation of left ear hearing loss and rule on Schwannoma and other possibilities. Had Echo done showing normal EF with no abnormalities related to his valves of stenosis\regurgitations. Hx of TOÑO. To continue CPAP at night. Discharge plan Meclizine 3 times a day for the next 3 days then as needed Lorazepam as needed for anxiety and vertigo To do MRI as outpatient Follow with ENT as outpatient To do physical therapy and vestibular training at home Time Attestation Discharge Coordination Time (in mins): 28 Quality: Safe Use of Opioids Does Pt have an Active Cancer Diagnosis on the Problem List?: No Quality: Stroke Does the patient have a stroke diagnosis?: No Physical Exam Vital Signs: Vital Signs: Last Vital Signs Temp 97.6 F 11/01/24 08:00 Pulse 53 11/01/24 08:00 Resp 16 11/01/24 08:00 BP 134/73 03/20/25 08:00 Pulse Ox 96 11/01/24 08:00 O2 Del Method Room Air 11/01/24 08:00 BMI result Body Mass Index 34.4 Const: Other: Constitutional : interactive, not in distress Ears: decrease hearing left ear Cardiovascular : no JVP, no lower extremity edema Respiratory : bilateral chest movement, not in resp distress Gastrointestinal: soft, lax, Non tender Skin : Warm, Dry Neurological : Alert & oriented , No focal deficit DS: Data Data Completed and Pending Labs on day of discharge: Laboratory Results - last 24 hr 10/31/24 10/31/24 10/31/24 11:01 16:12 19:52 POC Glucose 240 H 211 H 192 H 11/01/24 07:24 POC Glucose 162 H Imaging MRI - head: Radiologist's impression: ITS Impressions Head CT 10/30/24 12:27 IMPRESSION: No acute intracranial abnormality. No abnormal contrast enhancement. Electronically signed by: Elkin Bryant MD 10/30/2024 01:01 PM EDT RP MRI IMPRESSION: No acute findings. Mild ischemic microangiopathy. 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 This document has been electronically signed by: Bob Fowler MD on 10/30/2024 17:29:11 Discharge Plan Discharge Anticipated Discharge Date/Time: 11/01/24 10:31 Patient Disposition: Home Health Service Discharge Diagnosis: Vertigo Referrals: [facility] [Outside] - 1 Week Divya Dan MD [Primary Care Provider] - 1 Week Discharge Medications: New ondansetron 4 mg tablet,disintegrating 4 mg PO Q8H PRN (Reason: nausea and vomiting) Qty: 20 0RF lorazepam 0.5 mg tablet 0.5 mg PO TID PRN (Reason: anxiety, Vertigo) Qty: 20 0RF Continued metoprolol succinate 50 mg tablet extended release 24 hr 50 mg PO DAILY sertraline 100 mg tablet 100 mg PO DAILY insulin lispro [Humalog KwikPen Insulin] 100 unit/mL insulin pen See Protocol subcut TIDAC Protocol: Insulin Correction Scale Less than or equal to 110 ---- Give (units): 0 111 to 150 Give (units): 0 151 to 200 Give (units): 2 201 to 250 Give (units): 4 251 to 300 Give (units): 6 301 to 350 Give (units): 8 Greater than 350 Give (units): 10 Call MD if Blood Glucose > : 350 insulin glargine U-300 conc [Toujeo Max U-300 SoloStar] 300 unit/mL (3 mL) insulin pen 55 unit subcut BID meclizine 25 mg tablet 25 mg PO TID PRN (Reason: dizziness) Qty: 60 1RF amlodipine 10 mg tablet 10 mg PO DAILY aspirin 81 mg tablet,delayed release (DR/EC) 81 mg PO DAILY atorvastatin 40 mg tablet 40 mg PO DAILY chlorthalidone 25 mg tablet 25 mg PO DAILY dapagliflozin propanediol [Farxiga] 5 mg tablet 5 mg PO DAILY fenofibrate micronized 134 mg capsule 134 mg PO DAILY lisinopril 40 mg tablet 40 mg PO DAILY metformin 850 mg tablet 850 mg PO BID Discharge Orders: Discharge Order (Routine); Ordered 11/01/24 Ordered By: Irena Garcia Diet: Diabetic diet Activity on Discharge: As tolerated Stand Alone Forms: Patient Portal Discharge page Print Language: Hungarian Other Ambulatory Orders: MR head/brain w con (Routine) Timeframe: 1 Week Facility: [facility] - Location: MRI Ordered By: Irena Garcia Care Plan Goals: Meclizine 3 times a day for the next 3 days then as needed Lorazepam as needed for anxiety and vertigo To do MRI as outpatient Follow with ENT as outpatient To do physical therapy and vestibular training at home Health Concerns: Vertigo Plan of Treatment: Meclizine, Lorazepam, ENT follow up and MRI Assessment: as above Patient Instructions: Vertigo (DC)
--- NOTE | 2024-11-01 10:44 | W.MHC.F2F ---
Service Date Service Date: 11/01/24 Encounter Date of encounter: 11/01/24 Reasons for Services Signs and symptoms assessed: vertigo Reason for physical therapy: home safety and mobility and therapeutic exercises Homebound: Leaving the home is medically contraindicated at this time without the asist of a device and/or another person due th the listed conditions above and below. Reason homebound: unsteady gait / fall risk and poor balance / fall risk Certification: Based on the above findings, I certify that this patient is confined to the home and needs intermittent jail care, physical therapy and/or speech therapy, or continues to need occupational therapy. The patient is under my care, and I have initiated the establishment of the plan of care. The patient will be followed by a physician who will periodically review the plan of care. Time Spent With Patient Time: Total time managing care of this patient today ____ minutes.
== END 2024-11-01 10:50 | disposition home health service (06) ==
LOC: HO.ED 13:52 → HO.EDOVER 14:42 → HO.S3 19:50
PROVIDERS: Admitting Provider Internal Medicine; Emergency Provider Emergency Medicine; PCP Internal Medicine; Visit Provider Student in an Organized Health Care Education/Training Program
DX: R11.2 Nausea with vomiting, unspecified (principal); R42 Dizziness and giddiness; H91.90 Unspecified hearing loss, unspecified ear; I10 Essential (primary) hypertension; E78.5 Hyperlipidemia, unspecified; E11.319 Type 2 diabetes mellitus with unspecified diabetic retinopathy without macular edema; G47.33 Obstructive sleep apnea (adult) (pediatric); E66.9 Obesity, unspecified; Z71.3 Dietary counseling and surveillance; Z79.899 Other long term (current) drug therapy; Z79.84 Long term (current) use of oral hypoglycemic drugs
CPT/HCPCS: 36415; 70470; 70551; 80048; 80076; 82947; 83690; 83735; 84484; 85025; 93005; 93306; 96361; 96372; 96374; 96375; 96376; 97162; 99218; 99285; J1200; J1650; J2060; J2405; J2765; J7120; Q9957

== ENCOUNTER → 2024-10-30 11:48 | Outpatient (BNV) | payer MEDICARE, SELFPAY | PROVIDERS: Admitting Provider Internal Medicine; Emergency Provider Emergency Medicine; PCP Internal Medicine; Visit Provider Internal Medicine Cardiovascular Disease | DX: R42 Dizziness and giddiness (principal) | CPT/HCPCS: 93010 ==

== ENCOUNTER → 2024-10-30 11:49 | Outpatient (BNV) | payer MEDICARE, SELFPAY | PROVIDERS: Emergency Provider Emergency Medicine; PCP Internal Medicine; Visit Provider Radiology Diagnostic Radiology | DX: R42 Dizziness and giddiness (principal); R53.1 Weakness; H91.92 Unspecified hearing loss, left ear | CPT/HCPCS: 70470; 70551 ==

== ENCOUNTER 2024-10-30 14:42 | Outpatient (BNV) | payer MEDICARE, SELFPAY | END 2024-10-31 07:00 | PROVIDERS: Admitting Provider Internal Medicine; Emergency Provider Emergency Medicine; PCP Internal Medicine; Visit Provider Internal Medicine Cardiovascular Disease | DX: I71.21 Aneurysm of the ascending aorta, without rupture (principal) | CPT/HCPCS: 93306 ==

== ENCOUNTER → 2024-10-30 14:42 | Outpatient (BNV) | payer MEDICARE, SELFPAY | PROVIDERS: Admitting Provider Internal Medicine; Emergency Provider Emergency Medicine; PCP Internal Medicine; Visit Provider Internal Medicine | DX: R11.2 Nausea with vomiting, unspecified (principal); R42 Dizziness and giddiness | CPT/HCPCS: 99221; 99231; 99238 ==

== ENCOUNTER 2024-11-20 23:43 | Emergency (ER) | payer MEDICARE, SELFPAY ==
[2024-11-20 23:39] VITALS: BP 170/72; PULSE 70; O2SAT 97
[2024-11-20 23:43] VITALS: BP 156/57; PULSE 74; RESP 16; TEMP 36.5; O2SAT 96; BMI 36.1
--- OUTSIDE RECORDS SUMMARY | 2024-11-21 00:10 | XMS_ITS | Patient Health Record ---
Author Organization [facility] Address [address] [place] [address] Care Team Providers Care Binder And Box Builder Name Role Phone Divya Dan Primary Care Provider NADIA Graham Unavailable [phone] Allergies No Known Allergies Reason For Referral [...] tablet Orally Once a day Active Nystatin 627779 UNIT 1 tablet Orally Thr ee times a day Active Doxycycline Monohydrate 100 MG 1 tablet Orally Once a day Not-Taking Problems Problem Type SNOMED Code ICD Code Onset Dates Problem Status W/U Status Risk Notes Problem 90248204 Type 2 diabetes mellitus with other circulatory complications (E11.59) Active confirmed Vital Signs Heart Rate 58 /min 07/16/2024 Temperature 97.4 degrees Fahrenheit 07/16/2024 Respiratory Rate 16 /min 07/16/2024 Height 5ft 10in in 07/16/2024 Weight 244.5 lbs 07/16/2024 BMI 35.08 kg/m2 07/16/2024 Encounters Encounter Location Date Provider Diagnosis [facility] [address] [address] 07/16/2024 NADIA RODRIGUEZ Ingrown right big toenail L60.0 ; Pain in right toe(s) M79.674 ; Onychomycosis B35.1 and Type 2 diabetes mellitus with other circulatory complications E11.59 [facility] [address] [address] 07/23/2024 NADIA RODRIGUEZ Assessments Encounter Date Diagnosis [...] Date [employer] [address] [place] [address] [phone] [id number] Abiodun Banerjee Self - patient is the [...]
--- OUTSIDE RECORDS SUMMARY | 2024-11-21 00:10 | XMS_ITS ---
Author Organization [facility] Address [address] [facility] [facility] [address] [place] [address] Care Team Providers Care Heat Set Operator Name Role Phone Divya Dan Primary Care Provider TANGELA Graham Unavailable [phone] Allergies No Known Allergies REASON FOR VISIT [...] tablet Orally Once a day Active Nystatin 747465 UNIT 1 tablet Orally Thr ee times [...] Problem Status W/U Status Risk Notes Problem 97911160 Type 2 diabetes mellitus with other circulatory complications (E11.59) Active confirmed Vital Signs Temperature 97.4 degrees Fahrenheit 07/16/20 24 Heart Rate 58 /min 07/16/2024 Respiratory Rate 16 /min 07/16/2024 Height 5ft 10in in 07/16/2024 Weight 244.5 lbs 07/16/2024 BMI 35.08 kg/m2 07/16/2024 Encounters Encounter Location Date Provider Diagnosis [facility] [address] [facility] [address] [place] [address] 07/16/2024 TANGELA ADAMS Ingrown right big toenail [...] * Abiodun BANERJEEDOB:1950 ([age] yo M)Acc No.[id number]:07/16/2024 Patient:?Abiodun BANERJEE Provider:?Tangela Adams DPM :1950???Age:74 Y???Sex:Male Dick e:07/16/2024 Phone: Address:[address] [place] [address], [phone] Pcp:Divya Dan Subjective: * Chief Complaints: * [...] 1 tablet Orally Once a day Nystatin 110529 UNIT Tablet 1 tablet Orally Three times [...] tablet Orally Once a day Taking Nystatin 735282 UNIT Tablet 1 tablet Orally Three times [...] the nail dorsally and plantarly. Using an [place] [facility], the medial border [...] tolerated the procedure well. ? * Procedure Codes:?17496 REMOV AL OF NAIL PLATE, Modifiers: T5 * Follow Up:?2 Weeks * Billing Information: * Visit Code:? 59673 Office Visit, New Pt., Level 3. Modifiers: 25 * Procedure Codes:? 89654 REMOVAL OF NAIL PLATE. Modifiers: T5 * Sign off status: Completed true * Provider:?Tangela Adams DPM Date:? 07/16/2024 Generated for Linette chaudhary/Armando/Sabaitting on:?11/21/2024 12:10 AM EDT History and Physical Notes * [...]
--- OUTSIDE RECORDS SUMMARY | 2024-11-21 00:10 | XMS_ITS | Clinical Summary ---
Author Organization [facility] it Address [address] [place] [address] Care Team Providers Care Manager Port Name Role Phone Divya Dan MD Primary Care Provider Immunizations Name Administration Dates Next Due Moderna SARS-CoV-2 COVID-19, mRNA, LNP-S, preservative free 12/04/2020,11/06/2020 Surgical History Surgery Date Site/Laterality Comments TONSILLECTOMY PROCEDURE: HISTORICAL TONSILLECTOMY NASAL SEPTUM SURGERY PROCEDURE: MI SEPTOPLASTY/SUBMUCOUS RESECJ W/WO CARTILAGE GRF TOTAL KNEE ARTHROPLASTY 08/2009 PROCEDURE: HISTORICAL TOTAL KNEE REPLACE; COMMENT: Left COLONOSCOPY 05/28/2008 PROCEDURE: HISTORICAL COLONOSCOPY; COMMENT: Up to cecum, adequate preparation, colon polyp removed:polypoid colonic mucosa(no adenoma), mild diverticulosis UPPER GASTROINTESTINAL ENDOSCOPY 1998 PROCEDURE: MI UPPER GI ENDOSCOPY PERFORMED; COMMENT: Dr. Britton for heartburn UPPER GASTROINTESTINAL ENDOSCOPY 11/17/2018 PROCEDURE: MI UPPER GI ENDOSCOPY PERFORMED; COMMENT: normal on [...] 1 Schizophrenic, penile cancer? Brother 2 Alive [place] 45 , CABG 55 ; dementia Daughter [...] - Risk 3-dose series) 2011 RSV Immunization Adult Patients (1 - Risk 60-74 years 1-dose series) [...] Test (HGBA1C) 07/30/2022 COVID-19 Vaccine (4 - 2023- season) 2024 06/22/2021, 12/04/2020, 11/06/2020 Influenza Vaccine (Season Ended) 2025 05/14/2020, 04/28/2019, 05/04/2017, Additional history exists DTaP,Tdap,and Td [...] age to complete this topic Meningococcal B Vaccine Aged Out No l onger eligible based on patient's age to complete this topic RSV Immunization Patients Under 20 months Aged Out No longer eligible based on patient's age to complete this topic Varicella Vaccines Aged Out No longer eligible based on patient's age to complete this topic Care Teams Manager Port Relationship Specialty Start Date End Date Divya Dan MD PCP - General 07/21/22
--- OUTSIDE RECORDS SUMMARY | 2024-11-21 00:10 | XMS_ITS ---
Author Organization [facility] Address [address] [address] Care Team Providers Care Oil Derrick Operator Name Role Phone Divya Dan Primary Care Provider NADIA Graham [phone] REASON FOR VISIT toenail biopsy Encounters Encounter Location Date Provider Diagnosis [facility] [address] [address] 07/23/2024 NADIA RODRIGUEZ Plan Of Treatment No Information Progress Notes * Abiodun BANERJEEDOB:1950 ([age] yo M)Acc No.[id number]:07/23/2024 Patient:?Abiodun BANERJEE :1950???Age:74 Y???Sex:Male Phone: Address:[address] [place] [address] [place] [address] * true * Date:? Generated for Linette chaudhary/Armando/eTransmitting on:?11/21/2024 12:10 AM EDT
--- OUTSIDE RECORDS SUMMARY | 2024-11-21 00:10 | XMS_ITS | Clinical Summary ---
Author Organization [facility] Address [address] [place] [address] Care Team Providers Care Cost And Risk Analysis Manager Name Role Phone Unavailable Primary Care [...] or Tdap) 09/01/2019 09/01/2009 COVID-19 Vaccine ( season) 2024 12/04/2020, 11/06/2020 Influenza Vaccine (#1) [...]
[2024-11-21 00:12] LABS: Alanine Aminotransferase 20 U/L (0-40); Albumin Level 4.2 g/dL (3.5-5.0); Alkaline Phosphatase 39 U/L (39-117); Anion Gap 15 (12-20); Aspartate Amino Transferase 29 U/L (5-37); Bilirubin Total 0.5 mg/dL (0.0-1.0); Blood Urea Nitrogen 35 mg/dL (9-16); Calcium 9.4 mg/dL (8.4-10.2); Carbon Dioxide 19 mmol/L (22-29); Chloride 106 mmol/L (96-108); Creatinine Clr Calc Pharmacy 64.4; Estimated Glomerular Filt Rate 55; Glucose Random 185 mg/dL (60-115); Lipase 61 U/L (8-78); Potassium 4.1 mmol/L (3.3-5.1); Sodium 136 mmol/L (135-145); Total Protein 7.4 g/dL (6.5-8.0)
[2024-11-21 00:24] VITALS: BP 149/60; PULSE 57; RESP 16
[2024-11-21 00:41] LABS: Basophils Percent Auto 0.4 % (0-2); Eosinophils Absolute Auto 0.2 X10*3/uL (0.0-0.4); Eosinophils Percent Auto 2.4 % (0-4); Hematocrit 36.4 % (42.0-52.0); Hemoglobin 12.4 g/dl (14.0-18.0); Imm Gran Abs Auto 0.06 X10*3/uL (0.00-0.03); Imm Gran Pct Auto 0.8 % (0.0-0.4); Lymphocytes Absolute Auto 1.6 X10*3/uL (1.2-4.9); Lymphocytes Percent Auto 21.7 % (20-40); Mean Corpuscular HGB Conc 34.1 g/dl (31.0-36.0); Mean Corpuscular Hemoglobin 27.9 pg (27.0-33.0); Mean Platelet Volume 10.6 fL (9.4-12.4); Monocytes Absolute Auto 0.7 X10*3/uL (0.1-1.2); Monocytes Percent Auto 9.5 % (2-11); Neutrophils Absolute Auto 4.7 x10*3/uL (2.0-8.3); Neutrophils Percent Auto 65.2 % (45-73); Platelet Count 189 X10*3/uL (160-400); Red Blood Count 4.44 X10*6/uL (4.60-5.80); Red Cell Distribution Width 13.4 % (11.0-16.0); White Blood Count 7.1 X10*3/uL (4.8-10.8)
--- NOTE | 2024-11-21 00:52 | ED.GENADULT ---
HPI - General Adult General Chief complaint: Nausea/Vomiting/Diarrhea Stated complaint: NAUSEA VOMITTING/ DIZZINESS Time Seen by Provider: 11/21/24 00:46 Source: patient, family (Spouse), EMS and old records reviewed Mode of arrival: EMS Limitations: no limitations History of Present Illness ED Provider: DR. Mann HPI narrative: 74-year-old male PMH significant for chronic vertigo, HTN, DM, HLD, obesity, TOÑO presented by ambulance today for evaluation of severe vertigo with nausea and vomiting, patient is known to have chronic vertigo wakes up every morning with mild symptoms that has been controlled with prescribed lorazepam until early this evening when he was watching TV started to have severe vertigo vomiting, patient had previous hospitalization last month for similar presentation had a negative CT head and a negative MRI. Patient can not open his eyes when he is in the ED because it worsen his vertigo. Patient has been seen by 3 different ENT doctors for left ear hearing loss and tinnitus. Patient has been taking Zofran and his prescribed Ativan with no relief of his symptoms. Related Data Home Medications ?Medication ?Instructions ?Recorded ?Confirmed amlodipine 10 mg tablet 10 mg PO DAILY 10/22/24 10/30/24 aspirin 81 mg tablet,delayed 81 mg PO DAILY 10/22/24 10/30/24 release atorvastatin 40 mg tablet 40 mg PO DAILY 10/22/24 10/30/24 chlorthalidone 25 mg tablet 25 mg PO DAILY 10/22/24 10/30/24 dapagliflozin propanediol 5 mg 5 mg PO DAILY 10/22/24 10/30/24 tablet (Farxiga) fenofibrate micronized 134 mg 134 mg PO DAILY 10/22/24 10/30/24 capsule lisinopril 40 mg tablet 40 mg PO DAILY 10/22/24 10/30/24 metformin 850 mg tablet 850 mg PO BID 10/22/24 10/30/24 insulin glargine U-300 conc 300 55 unit subcut BID 10/30/24 10/30/24 unit/mL (3 mL) subcutaneous pen (Toujeo Max U-300 SoloStar) insulin lispro 100 unit/mL See Protocol subcut TIDAC 10/30/24 10/30/24 subcutaneous pen (Humalog KwikPen (U-100) Insulin) metoprolol succinate 50 mg 50 mg PO DAILY 10/30/24 10/30/24 tablet,extended release 24 hr sertraline 100 mg tablet 100 mg PO DAILY 10/30/24 10/30/24 Previous Rx's ?Medication ?Instructions ?Recorded lorazepam 0.5 mg tablet 0.5 mg PO TID PRN anxiety, Vertigo 11/01/24 #20 tabs meclizine 25 mg tablet 25 mg PO TID PRN dizziness #60 tabs 11/01/24 ondansetron 4 mg disintegrating 4 mg PO Q8H PRN nausea and 11/01/24 tablet vomiting #20 tabs Allergies Allergy/AdvReac Type Severity Reaction Status Date / Time No Known Allergies Allergy Verified 11/20/24 23:45 Review of Systems Review of Systems: All other systems are reviewed and are negative Constitutional: Reports as per HPI and Reports no additional constitutional complaints Eyes: Reports as per HPI and Reports no additional eye complaints Reports system reviewed and no additional complaints, except as documented Cardiovascular: Reports as per HPI and Reports no additional cardiovascular complaints Respiratory: Reports as per HPI and Reports no additional respiratory complaints Gastrointestinal: Reports as per HPI and Reports no additional gastrointestinal complaints Genitourinary: Reports no additional female genitourinary complaints Musculoskeletal: Reports no additional musculoskeletal complaints Skin/Breast: Reports system reviewed and no additional complaints, except as docu Psychiatric: Reports no additional psychiatric complaints Endocrine: Reports no additional endocrine complaints Hematologic/Lymphatic: Reports no additional hematologic/lymphatic complaints Allergic/Immunologic: Reports no additional allergic/immunologic complaints Reports system reviewed and no additional complaints, except as documented and Reports Abnormal speech present FOR[facility]LY [facility] Past Medical History Medical History Venous insufficiency Uncontrolled diabetes mellitus with hyperglycemia Renal cyst TOÑO (obstructive sleep apnea) Nuclear sclerosis of both eyes Mild depression Left inguinal hernia IBS (irritable bowel syndrome) Hypertension associated with diabetes Hypercholesteremia GERD (gastroesophageal reflux disease) Generalized OA Former tobacco use Fatty liver disease, nonalcoholic Erectile dysfunction Diabetes with retinopathy Diabetes Chronic vertigo Anxiety Aneurysm, thoracic aortic Vertigo Surgical History S/P total knee arthroplasty H/O endoscopy Hx of colonoscopy H/O total knee replacement Hx of cholecystectomy Social History Social History Alcohol intake: never Patient Tobacco Use Status: Never used Tobacco Smoked in Last 30 Days: No Use of substances other than those prescribed or required for medical reasons: No Advance Directives: No Do you have a plan to hurt others: No Plan Physical Exam ED Vital Signs: Vital Signs - 24 hr 11/20/24 23:43 11/21/24 00:24 Temperature 97.7 F Pulse Rate 74 57 Respiratory Rate 16 16 Blood Pressure 156/57 H 149/60 H Pulse Oximetry 96 Oxygen Delivery Method Room Air BMI result Body Mass Index 36.1 Vital signs have been reviewed and appear to be correct. Blood pressure elevated. Heart rate normal. Respiratory rate normal. Temperature normal. Oxygen saturation normal. Appearance: Alert. Oriented X3. No acute distress. Head: Normal external exam. Normocephalic. Atraumatic. No [place] signs noted. No raccoon eyes noted Eyes: PERRLA. EOMI. Conjunctiva and sclera normal. Eyelids normal. ENT: TM's Normal. Pharynx normal. Uvula midline. Moist mucous membranes. No trismus noted. No drooling noted. No muffled voice noted. Neck: Normal inspection. Neck supple. FROM. No adenopathy. Thyroid Normal. No meningeal signs. No neck mass noted. CVS: Normal heart rate and rhythm. Heart sound normal. No murmurs noted. Pulses normal throughout. Respiratory: No respiratory distress. Painless inspiration. Breath sounds normal. No wheezes/rales/rhonchi noted. Chest nontender. No accessory muscle usage noted or decreased air movement noted. Abdomen: Soft and nontender. Bowel sounds normal in all 4 quadrants. No distention noted. No organomegaly noted. No visible injury noted. Back: No CVA tenderness. Full range of motion noted. Skin: Skin warm and dry. Normal skin color. Normal skin turgor. No rashes/lesions/lacerations noted. Extremities: No lower extremity edema. Extremities exhibit normal range of motion. Extremities nontender. Neuro: Mental status: Normal attention, orientation, memory, and affect. Cranial nerves: Pupils are equal, round and reactive to light, EOMI, visual ch are fall, face is symmetric, facial sensations are normal. Motor examination normal muscle tone, strength to 4 extremities. DTR are +2, planter's are flexor. Sensory exam; normal coordination, no ataxia, gait stable. Cerebellar exam: Uwrtey-os-dxzh and wqhj-oy-kvry is normal. Extrapyramidal system: No tremors, no rigidity with normal facial expressions. Pronator drift not present Course Reevaluation(s) Reevaluation #1: Patient now feels better after was given fluids and IV Zofran IV Valium, able to tolerate p.o. intake, patient gets out of bagged able to ambulate in the emergency department with no dizziness. Since this is a recurrence of similar symptoms in the past patient had previous CT/MRI of the brain which was unremarkable then, with the improvement of the patient's symptoms there is no indication to repeat neurological radiographic studies. Time: 03:27 Medications Administered Discontinued Medications Generic Name Dose Route Start Last Admin Trade Name Freq PRN Reason Stop Dose Admin Diazepam 5 mg 11/21/24 01:01 11/21/24 01:36 Diazepam 10 Mg/2 Ml Cartridge IVPUSH 11/21/24 01:02 5 mg STAT STA Administration Sodium Chloride 1,000 mls @ 999 mls/hr 11/21/24 01:27 11/21/24 01:32 Ns IV 11/21/24 02:27 999 mls/hr .Q1H1M ONE Administration Ondansetron HCl 4 mg 11/21/24 01:01 11/21/24 01:36 Ondansetron Hcl 4 Mg/2 Ml Vial IVPUSH 11/21/24 01:02 4 mg ONCE ONE Administration Medical Decision Making Differential Diagnosis Differential Diagnoses: The differential diagnosis associated with the presentation includes (Peripheral vertigo, dehydration, electrolyte derangement.) Admission/Observation Consideration of admission/observation: Escalation of care including admission/observation considered Lab Data MDM Lab Attestation statement: I reviewed the patient's lab results. 11/21/24 00:30 11/20/24 23:50 Labs: Lab Results 11/20/24 11/21/24 Range/Units 23:50 00:30 WBC 7.1 (4.8-10.8) X10*3/uL RBC 4.44 L (4.60-5.80) X10*6/uL Hgb 12.4 L (14.0-18.0) g/dl Hct 36.4 L (42.0-52.0) % MCV 82.0 (80.0-98.0) fL MCH 27.9 (27.0-33.0) pg MCHC 34.1 (31.0-36.0) g/dl RDW 13.4 (11.0-16.0) % Plt Count 189 (160-400) X10*3/uL MPV 10.6 (9.4-12.4) fL Immature Gran % (Auto) 0.8 H (0.0-0.4) % Neut % (Auto) 65.2 (45-73) % Lymph % (Auto) 21.7 (20-40) % [place] % (Auto) 9.5 (2-11) % Eos % (Auto) 2.4 (0-4) % Baso % (Auto) 0.4 (0-2) % Lymph # (Auto) 1.6 (1.2-4.9) X10*3/uL [place] # (Auto) 0.7 (0.1-1.2) X10*3/uL Eos # (Auto) 0.2 (0.0-0.4) X10*3/uL Baso # (Auto) 0.0 (0.0-0.2) X10*3/uL Abs Immat Gran (auto) 0.06 H (0.00-0.03) X10*3/uL Absolute Neuts (auto) 4.7 (2.0-8.3) x10*3/uL Absolute Nucleated RBC 0.000 (0.0-0.012) X10*3/uL Nucleated RBC % (auto) 0.0 (0.0-0.2) /100WBC Sodium 136 (135-145) mmol/L Potassium 4.1 (3.3-5.1) mmol/L Chloride 106 (96-108) mmol/L Carbon Dioxide 19 L (22-29) mmol/L Anion Gap 15 (12-20) BUN 35 H (9-16) mg/dL Creatinine 1.29 (0.5-1.4) mg/dL Estim Creat Clear Calc 64.4 Estimated GFR 55 Random Glucose 185 H (60-115) mg/dL Calcium 9.4 (8.4-10.2) mg/dL Total Bilirubin 0.5 (0.0-1.0) mg/dL AST 29 (5-37) U/L ALT 20 (0-40) U/L Alkaline Phosphatase 39 (39-117) U/L Total Protein 7.4 (6.5-8.0) g/dL Albumin 4.2 (3.5-5.0) g/dL Lipase 61 (8-78) U/L Discharge Plan Discharge Clinical Impression: Peripheral vertigo, Vomiting Patient Disposition: Home, Self-Care Instructions: Vertigo (ED) Prescriptions: No Action metoprolol succinate 50 mg tablet extended release 24 hr 50 mg PO DAILY sertraline 100 mg tablet 100 mg PO DAILY insulin lispro [Humalog KwikPen Insulin] 100 unit/mL insulin pen See Protocol subcut TIDAC Protocol: Insulin Correction Scale Less than or equal to 110 ---- Give (units): 0 111 to 150 Give (units): 0 151 to 200 Give (units): 2 201 to 250 Give (units): 4 251 to 300 Give (units): 6 301 to 350 Give (units): 8 Greater than 350 Give (units): 10 Call MD if Blood Glucose > : 350 insulin glargine U-300 conc [Toujeo Max U-300 SoloStar] 300 unit/mL (3 mL) insulin pen 55 unit subcut BID ondansetron 4 mg tablet,disintegrating 4 mg PO Q8H PRN (Reason: nausea and vomiting) Qty: 20 0RF lorazepam 0.5 mg tablet 0.5 mg PO TID PRN (Reason: anxiety, Vertigo) Qty: 20 0RF meclizine 25 mg tablet 25 mg PO TID PRN (Reason: dizziness) Qty: 60 1RF amlodipine 10 mg tablet 10 mg PO DAILY aspirin 81 mg tablet,delayed release (DR/EC) 81 mg PO DAILY atorvastatin 40 mg tablet 40 mg PO DAILY chlorthalidone 25 mg tablet 25 mg PO DAILY dapagliflozin propanediol [Farxiga] 5 mg tablet 5 mg PO DAILY fenofibrate micronized 134 mg capsule 134 mg PO DAILY lisinopril 40 mg tablet 40 mg PO DAILY metformin 850 mg tablet 850 mg PO BID Referrals: Alex Carnes MD [Physician] - Divya Dan MD [Primary Care Provider] - Print Language: Sinhala
[2024-11-21 00:58] LABS: MANUAL DIFF FLAG NO
[2024-11-21] MEDS: 0.9 % Sodium Chloride 1,000 ML 999 ML IV (01:32)
[2024-11-21] MEDS: ondansetron HCL 4 MG/2 ML VIAL IVPUSH (01:36)
[2024-11-21] MEDS: diazePAM 10 MG/2 ML CARTRIDGE 5 MG IVPUSH (01:36)
--- NOTE | 2024-11-21 03:21 | PC.NURSE ---
Pt able to ambulate with steady gait. made aware.
[2024-11-21 04:06] VITALS: BP 149/60; PULSE 57; RESP 16; TEMP -17.7; TEMP 0
== END 2024-11-21 04:06 | disposition home or self-care (01) ==
PROVIDERS: Emergency Provider Emergency Medicine; PCP Internal Medicine
DX: H81.312 Aural vertigo, left ear (principal); R11.2 Nausea with vomiting, unspecified; I10 Essential (primary) hypertension; H91.92 Unspecified hearing loss, left ear; H93.12 Tinnitus, left ear; Z79.899 Other long term (current) drug therapy
CPT/HCPCS: 36415; 80053; 83690; 85025; 96374; 96375; 99284; J2405; J3360

== ENCOUNTER 2024-11-30 04:31 | Emergency (ER) | payer MEDICARE, SELFPAY ==
--- NOTE | 2024-11-30 | ECG_ITS ---
Test Reason : DIZZINESS Blood Pressure : */* mmHG Vent. Rate : 66 BPM Atrial Rate : 66 BPM P-R Int : 172 ms QRS Dur : 96 ms QT Int : 404 ms P-R-T Axes : 29 34 48 degrees QTcB Int : 423 ms Normal sinus rhythm Normal ECG When compared with ECG of 30-Oct-2024 12:10, No significant change was found Referred By: Generic ED Physician Electronically Signed By: ELVIA RENAE MD
[2024-11-30 04:34] VITALS: BP 160/76; BP 162/90; PULSE 70; RESP 19; TEMP 36.7; O2SAT 98; BMI 34.6
[2024-11-30 04:51] LABS: Basophils Percent Auto 0.3 % (0-2); Eosinophils Absolute Auto 0.2 X10*3/uL (0.0-0.4); Eosinophils Percent Auto 2.9 % (0-4); Hematocrit 37.6 % (42.0-52.0); Hemoglobin 12.8 g/dl (14.0-18.0); Imm Gran Abs Auto 0.09 X10*3/uL (0.00-0.03); Imm Gran Pct Auto 1.4 % (0.0-0.4); Lymphocytes Percent Auto 32.3 % (20-40); MANUAL DIFF FLAG NO; Mean Corpuscular Hemoglobin 28.3 pg (27.0-33.0); Mean Corpuscular Volume 83.2 fL (80.0-98.0); Mean Platelet Volume 10.5 fL (9.4-12.4); Monocytes Absolute Auto 0.7 X10*3/uL (0.1-1.2); Monocytes Percent Auto 11.7 % (2-11); Neutrophils Absolute Auto 3.2 x10*3/uL (2.0-8.3); Neutrophils Percent Auto 51.4 % (45-73); Platelet Count 196 X10*3/uL (160-400); Red Blood Count 4.52 X10*6/uL (4.60-5.80); Red Cell Distribution Width 13.2 % (11.0-16.0); White Blood Count 6.3 X10*3/uL (4.8-10.8)
--- NOTE | 2024-11-30 04:52 | PC.NURSE ---
pt biba from home, a&ox4, respirations even and unlabored. pt reports waking up and rolling over with dizziness, pt reports this has been going on since May, reports he has been diagnosed with vertigo and needs an MRI of his ear. pt reports taking meclazine with no relief. pt denies cp and sob. 20G placed in left wrist, labs obtained, ekg given to provider. nsr on tele 80-88bpm.
--- OUTSIDE RECORDS SUMMARY | 2024-11-30 05:05 | XMS_ITS | Clinical Summary ---
Author Organization [facility] it Address [address] [place] [address] Care Team Providers Care Desk Pens Assembler Name Role Phone Divya Dan MD Primary Care Provider Immunizations Name Administration Dates Next Due Moderna SARS-CoV-2 COVID-19, mRNA, LNP-S, preservative free 12/04/2020,11/06/2020 Surgical History Surgery Date Site/Laterality Comments TONSILLECTOMY PROCEDURE: HISTORICAL TONSILLECTOMY NASAL SEPTUM SURGERY PROCEDURE: DE SEPTOPLASTY/SUBMUCOUS RESECJ W/WO CARTILAGE GRF TOTAL KNEE ARTHROPLASTY 08/2009 PROCEDURE: HISTORICAL TOTAL KNEE REPLACE; COMMENT: Left COLONOSCOPY 05/28/2008 PROCEDURE: HISTORICAL COLONOSCOPY; COMMENT: Up to cecum, adequate preparation, colon polyp removed:polypoid colonic mucosa(no adenoma), mild diverticulosis UPPER GASTROINTESTINAL ENDOSCOPY 1998 PROCEDURE: DE UPPER GI ENDOSCOPY PERFORMED; COMMENT: Dr. Britton for heartburn UPPER GASTROINTESTINAL ENDOSCOPY 11/17/2018 PROCEDURE: DE UPPER GI ENDOSCOPY PERFORMED; COMMENT: normal on [...] of total knee replacement; COMMENT: Left - 2009 Thoracic aortic aneurysm ([facility] V24) 11/29/2018 DX:Thoracic aortic aneurysm (HCC); COMMENT: 12/01 4.0 ascending aorta and 3.1 cm transverse aorta Ascending aorta dilation ([facility] V24) 03/17/2021 DX:Ascending aorta dilation (HCC) Family History [...] 1 Schizophrenic, penile cancer? Brother 2 Alive [place] 45 , CABG 55 ; dementia Daughter [...] age to complete this topic Care Teams Desk Pens Assembler Relationship Specialty Start Date End Date Divya Dan MD PCP - General 07/21/22
--- OUTSIDE RECORDS SUMMARY | 2024-11-30 05:05 | XMS_ITS ---
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 Name Role Phone Divya Dan Primary Care Provider TANGELA Graham Unavailable [phone] Allergies No Known Allergies REASON FOR VISIT [...] tablet Orally Once a day Active Nystatin 142424 UNIT 1 tablet Orally Thr ee times [...] Problem Status W/U Status Risk Notes Problem 84011218 Type 2 diabetes mellitus with other circulatory complications (E11.59) Active confirmed Vital Signs Temperature 97.4 degrees Fahrenheit 07/16/20 24 Heart Rate 58 /min 07/16/2024 Respiratory Rate 16 /min 07/16/2024 Height 5ft 10in in 07/16/2024 Weight 244.5 lbs 07/16/2024 BMI 35.08 kg/m2 07/16/2024 Encounters Encounter Location Date Provider Diagnosis [facility] [address] [place] [address] 07/16/2024 TANGELA ADAMS Ingrown right big toenail [...] * Abiodun BANERJEEDOB:1950 ([age] yo M)Acc No.[id number]:07/16/2024 Patient:?Abiodun BANERJEE Provider:?Tangela Adams DPM :1950???Age:74 Y???Sex:Male Dick e:07/16/2024 Phone: Address:[address] [place] [address], [id number] Pcp:Divya Dan Subjective: * Chief Complaints: * [...] 1 tablet Orally Once a day Nystatin 672679 UNIT Tablet 1 tablet Orally Three times [...] tablet Orally Once a day Taking Nystatin 679663 UNIT Tablet 1 tablet Orally Three times [...] the nail dorsally and plantarly. [facility], the medial border was [...] tolerated the procedure well. ? * Procedure Codes:?02964 REMOV AL OF NAIL PLATE, Modifiers: T5 * Follow Up:?2 Weeks * Billing Information: * Visit Code:? 17687 Office Visit, New Pt., Level 3. Modifiers: 25 * Procedure Codes:? 34338 REMOVAL OF NAIL PLATE. Modifiers: T5 * Sign off status: Completed true * Provider:?Tangela Adams DPM Date:? 07/16/2024 Generated for Linette chaudhary/Armando/Sabaitting on:?11/30/2024 05:04 AM EDT History and Physical Notes * [...]
--- OUTSIDE RECORDS SUMMARY | 2024-11-30 05:05 | XMS_ITS | Patient Health Record ---
Author Organization [facility] Address [address] [facility] [address] [place] [address] Care Team Providers Care Machine Precision Engraver Name Role Phone Divya Dan Primary Care Provider NADIA Graham Unavailable [phone] Allergies No Known Allergies Reason For Referral [...] tablet Orally Once a day Active Nystatin 034185 UNIT 1 tablet Orally Thr ee times a day Active Doxycycline Monohydrate 100 MG 1 tablet Orally Once a day Not-Taking Problems Problem Type SNOMED Code ICD Code Onset Dates Problem Status W/U Status Risk Notes Problem 77557965 Type 2 diabetes mellitus with other circulatory complications (E11.59) Active confirmed Vital Signs Heart Rate 58 /min 07/16/2024 Temperature 97.4 degrees Fahrenheit 07/16/2024 Respiratory Rate 16 /min 07/16/2024 Height 5ft 10in in 07/16/2024 Weight 244.5 lbs 07/16/2024 BMI 35.08 kg/m2 07/16/2024 Encounters Encounter Location Date Provider Diagnosis [facility] [address] [address] 07/16/2024 NADIA RODRIGUEZ Ingrown right big toenail L60.0 ; Pain in right toe(s) M79.674 ; Onychomycosis B35.1 and Type 2 diabetes mellitus with other circulatory complications E11.59 [facility] [address] [address] 07/23/2024 NADIA RODRIGUEZ Assessments Encounter Date Diagnosis [...] Date [employer] [address] [place] [address] [phone] Abiodun Banerjee Self - patient is the [...]
--- OUTSIDE RECORDS SUMMARY | 2024-11-30 05:05 | XMS_ITS ---
Author Organization [facility] Address [address] [address] Care Team Providers Care Assistant Producer Name Role Phone Divya aDn Primary Care Provider NADIA Graham [phone] REASON FOR VISIT toenail biopsy Encounters Encounter Location Date Provider Diagnosis [facility] [address] [address] 07/23/2024 NADIA RODRIGUEZ Plan Of Treatment No Information Progress Notes * ROD AbiodunDOB:1950 ([age] yo M)Acc No.[id number]:07/23/2024 Patient:?Abiodun BANERJEE :1950???Age:74 Y???Sex:Male Phone: Address:[address] [place], [place] [address] [place] [address] * true * Date:? Generated for Linette chaudhary/Armando/eTransmitting on:?11/30/2024 05:04 AM EDT
[2024-11-30 05:18] LABS: Alanine Aminotransferase 25 U/L (0-40); Albumin Level 4.1 g/dL (3.5-5.0); Alkaline Phosphatase 40 U/L (39-117); Anion Gap 15 (12-20); Aspartate Amino Transferase 27 U/L (5-37); Bilirubin Total 0.4 mg/dL (0.0-1.0); Blood Urea Nitrogen 22 mg/dL (9-16); Calcium 9.5 mg/dL (8.4-10.2); Carbon Dioxide 26 mmol/L (22-29); Chloride 104 mmol/L (96-108); Creatinine Clr Calc Pharmacy 98.1; Estimated Glomerular Filt Rate > 60; Glucose Random 164 mg/dL (60-115); Potassium 3.8 mmol/L (3.3-5.1); Sodium 141 mmol/L (135-145); Total Protein 7.2 g/dL (6.5-8.0); Troponin-I High Sensitivity < 2.7 ng/L (<3.5-35.0)
[2024-11-30] MEDS: LORazepam 1 MG TABLET PO (08:43)
[2024-11-30] MEDS: Meclizine HCl 25 MG TABLET PO (08:43)
[2024-11-30] MEDS: 0.9 % Sodium Chloride 1,000 ML 999 ML IV (08:45)
[2024-11-30 08:48] VITALS: BP 148/62; PULSE 63; RESP 18; TEMP 36.7; O2SAT 98
[2024-11-30 09:29] VITALS: BP 129/61; BP 138/66; PULSE 60; PULSE 65
[2024-11-30 09:31] VITALS: BP 140/66; PULSE 65
[2024-11-30 09:31] LABS: Appearance Urine Clear; Color Urine Yellow; Glucose Urine UA >=1000 mg/dL (Negative); Leukocyte Esterase Urine Negative (Negative); Nitrite Urine Negative (Negative); PH 5.5 (5.0-9.0); Specific Gravity - Urine 1.015 (1.005-1.025); UMIC TRIGGER UACC YES; Urine Blood Negative (Negative); Urine Ketones Negative (Negative); Urine Protein Negative (Neg-Trace)
--- NOTE | 2024-11-30 09:34 | ED_ITS ---
HPI - Dizziness General Chief Complaint: Dizziness Stated Complaint: VOMITTING / VERTIGO Time Seen by Provider: 11/30/24 08:01 Source: patient, RN notes reviewed and old records reviewed Mode of arrival: ambulatory History of Present Illness ED Provider: Lori Brooks PA-C HPI Narrative: 74-year-old male with a past medical history chronic vertigo, HTN, diabetes, HLD, obesity, TOÑO, presenting to the ED complaining of acute on chronic vertigo x early this morning with associated nausea s/p turning over in bed. Admits to similar symptoms in the past since May, has been admitted to our hospital, and seen by multiple ENT specialists. States symptoms today described as feeling lightheaded, and spinning with lying flat. States feeling off balance. Patient recently discharged from our facility on 11/01/2024 for similar symptoms had negative head MRI and negative echo at that time. Admits to taking meclizine and Ativan at home without relief. Denies fever, chills, blurry vision, double vision, vomiting, CP/SOB, weakness, numbness/tingling Related Data Home Medications ?Medication ?Instructions ?Recorded ?Confirmed amlodipine 10 mg tablet 10 mg PO DAILY 10/22/24 10/30/24 aspirin 81 mg tablet,delayed 81 mg PO DAILY 10/22/24 10/30/24 release atorvastatin 40 mg tablet 40 mg PO DAILY 10/22/24 10/30/24 chlorthalidone 25 mg tablet 25 mg PO DAILY 10/22/24 10/30/24 dapagliflozin propanediol 5 mg 5 mg PO DAILY 10/22/24 10/30/24 tablet (Farxiga) fenofibrate micronized 134 mg 134 mg PO DAILY 10/22/24 10/30/24 capsule lisinopril 40 mg tablet 40 mg PO DAILY 10/22/24 10/30/24 metformin 850 mg tablet 850 mg PO BID 10/22/24 10/30/24 insulin glargine U-300 conc 300 55 unit subcut BID 10/30/24 10/30/24 unit/mL (3 mL) subcutaneous pen (Toujeo Max U-300 SoloStar) insulin lispro 100 unit/mL See Protocol subcut TIDAC 10/30/24 10/30/24 subcutaneous pen (Humalog KwikPen (U-100) Insulin) metoprolol succinate 50 mg 50 mg PO DAILY 10/30/24 10/30/24 tablet,extended release 24 hr sertraline 100 mg tablet 100 mg PO DAILY 10/30/24 10/30/24 Previous Rx's ?Medication ?Instructions ?Recorded lorazepam 0.5 mg tablet 0.5 mg PO TID PRN anxiety, Vertigo 11/01/24 #20 tabs meclizine 25 mg tablet 25 mg PO TID PRN dizziness #60 tabs 11/01/24 ondansetron 4 mg disintegrating 4 mg PO Q8H PRN nausea and 11/01/24 tablet vomiting #20 tabs Allergies Allergy/AdvReac Type Severity Reaction Status Date / Time No Known Allergies Allergy Verified 11/30/24 04:41 Review of Systems 2 Review of Systems: Yes all other systems are reviewed and are negative Constitutional: Constitutional: Reports as per HPI Neurologic: Denies Abnormal speech present [facility] Past Medical History Attestation statement: The following information was validated with the patient. Source: old records reviewed Medical History Venous insufficiency Uncontrolled diabetes mellitus with hyperglycemia Renal cyst TOÑO (obstructive sleep apnea) Nuclear sclerosis of both eyes Mild depression Left inguinal hernia IBS (irritable bowel syndrome) Hypertension associated with diabetes Hypercholesteremia GERD (gastroesophageal reflux disease) Generalized OA Former tobacco use Fatty liver disease, nonalcoholic Erectile dysfunction Diabetes with retinopathy Diabetes Chronic vertigo Anxiety Aneurysm, thoracic aortic Vertigo Surgical History S/P total knee arthroplasty H/O endoscopy Hx of colonoscopy H/O total knee replacement Hx of cholecystectomy Social History Social History Alcohol intake: never Patient Tobacco Use Status: Never used Tobacco Smoked in Last 30 Days: No Use of substances other than those prescribed or required for medical reasons: No Advance Directives: No Advance Directives Information Provided: Yes Do you have a plan to hurt others: No Plan Physical Exam 2 Vital Signs: Vital Signs: Last Vital Signs Temp 98.1 F 11/30/24 08:48 Pulse 65 11/30/24 09:31 Resp 18 11/30/24 08:48 BP 140/66 H 11/30/24 09:31 Pulse Ox 98 11/30/24 08:48 O2 Del Method Room Air 11/30/24 08:48 BMI result Body Mass Index 34.6 Const: General: cooperative, healthy appearing and no acute distress O rientation/consciousness: patient oriented x3 Limitations: no limitations HEENT: Head: Yes normal to inspection and Yes atraumatic Ears: hearing grossly normal bilaterally General nose exam: Normal external nose present Face and sinus: Yes normal facial exam Mouth: Normal oral and palatal mucosa present and no drooling Throat: Yes posterior oropharynx normal Eyes: General: appearance normal, both eyes and all related structures EOM: EOMs intact bilaterally Neck: Neck: Yes normal visual inspection and Yes no meningeal signs Resp: Effort & Inspection: normal respiratory effort and no respiratory distress Auscultation: clear to auscultation bilaterally Cardio: Rate: regular rate Heart sounds: S1 normal heart sound present and S2 normal heart sound present GI: Inspection: Yes normal to inspection Palpation (GI): Soft to palpation, nontender, no guarding and not rigid : General: Yes no CVA tenderness Back/Spine/Pelvis: Back: no CVA tenderness Skin: Rashes: no rashes Wounds: no wounds Neuro: General: patient oriented x3, tone normal, moves all extremities, no meningeal signs, no focal motor deficits and CN's II-XI intact bilaterally C ranial nerves: Yes CN's II-XII intact bilaterally and Yes Bilaterally intact EOM present Cognition (Neuro): normal cognition Speech: No Abnormal speech present Gait exam (Neuro): Normal gait present Motor exam (neuro): 5/5 motor strength present throughout and no tremor noted Coordination: f [id number] test normal Romberg Test: Negative Extrem: General: Yes normal to inspection Course Course Course Narrative: -0941--labs reassuring. BUN chronically elevated. Troponin negative -UA negative. Orthostatic vital signs negative -1115--on re-evaluation patient reports symptomatic improvement. Denies dizziness/lightheadedness at present. Feels comfortable for discharge home at this time. Admits he has prescription of meclizine and Ativan at home. States currently prescribed 0.5 mg of Ativan however feels as though the 1 mg worked better. Instructed to I contact prescriber to potentially change dose Results discussed with patient including worrisome signs and symptoms and strict return precautions, and when to return to the emergency department. They verbalized understanding and feel safe for discharge at this time. Medications Administered Discontinued Medications Generic Name Dose Route Start Last Admin Trade Name Foster PRN Reason Stop Dose Admin Sodium Chloride 1,000 mls @ 999 mls/hr 11/30/24 08:45 11/30/24 08:45 Ns IV 11/30/24 09:45 999 mls/hr .Q1H1M HOLA Administration Lorazepam 1 mg 11/30/24 08:38 11/30/24 08:43 Lorazepam 1 Mg Tablet PO 11/30/24 08:39 1 mg ONCE ONE Administration Meclizine HCl 25 mg 11/30/24 08:38 11/30/24 08:43 Meclizine Hcl 25 Mg Tablet PO 11/30/24 08:39 25 mg ONCE ONE Administration Medical Decision Making Medical Decision Making [facility] Narrative: 74-year-old male with a past medical history chronic vertigo, HTN, diabetes, HLD, obesity, TOÑO, presenting to the ED complaining of acute on chronic vertigo x early this morning with associated nausea s/p turning over in bed. On exam vital signs stable, NAD, nontoxic appearing, physical exam as noted above. No focal neuro deficits. Concern for acute on chronic vertigo. Low suspicion for ICH, meningitis/encephalitis, mass Plan: EKG, labs, orthostatics, meclizine, Ativan, re-evaluate Please refer to course for remaining clinical decision making, interpretation of labs/imaging results, and discussions with consultants and/or family members. Differential Diagnosis Differential Diagnoses: The differential diagnosis associated with the presentation includes As above Admission/Observation Consideration of admission/observation: Escalation of care including admission/observation considered Lab Data [facility] Lab Attestation statement: I reviewed the patient's lab results. 11/30/24 04:46 11/30/24 04:46 Labs: Lab Results 11/30/24 11/30/24 Range/Units 04:46 09:20 WBC 6.3 (4.8-10.8) X10*3/uL RBC 4.52 L (4.60-5.80) X10*6/uL Hgb 12.8 L (14.0-18.0) g/dl Hct 37.6 L (42.0-52.0) % MCV 83.2 (80.0-98.0) fL MCH 28.3 (27.0-33.0) pg MCHC 34.0 (31.0-36.0) g/dl RDW 13.2 (11.0-16.0) % Plt Count 196 (160-400) X10*3/uL MPV 10.5 (9.4-12.4) fL Immature Gran % (Auto) 1.4 H (0.0-0.4) % Neut % (Auto) 51.4 (45-73) % Lymph % (Auto) 32.3 (20-40) % [place] % (Auto) 11.7 H (2-11) % Eos % (Auto) 2.9 (0-4) % Baso % (Auto) 0.3 (0-2) % Lymph # (Auto) 2.0 (1.2-4.9) X10*3/uL [place] # (Auto) 0.7 (0.1-1.2) X10*3/uL Eos # (Auto) 0.2 (0.0-0.4) X10*3/uL Baso # (Auto) 0.0 (0.0-0.2) X10*3/uL Abs Immat Gran (auto) 0.09 H (0.00-0.03) X10*3/uL Absolute Neuts (auto) 3.2 (2.0-8.3) x10*3/uL Absolute Nucleated RBC 0.000 (0.0-0.012) X10*3/uL Nucleated RBC % (auto) 0.0 (0.0-0.2) /100WBC Sodium 141 (135-145) mmol/L Potassium 3.8 (3.3-5.1) mmol/L Chloride 104 (96-108) mmol/L Carbon Dioxide 26 (22-29) mmol/L Anion Gap 15 (12-20) BUN 22 H (9-16) mg/dL Creatinine 0.83 (0.5-1.4) mg/dL Estim Creat Clear Calc 98.1 Estimated GFR > 60 Random Glucose 164 H (60-115) mg/dL Calcium 9.5 (8.4-10.2) mg/dL Total Bilirubin 0.4 (0.0-1.0) mg/dL AST 27 (5-37) U/L ALT 25 (0-40) U/L Alkaline Phosphatase 40 (39-117) U/L Troponin I High Sens < 2.7 (<3.5-35.0) ng/L Total Protein 7.2 (6.5-8.0) g/dL Albumin 4.1 (3.5-5.0) g/dL Urine Color Yellow Urine Appearance Clear Urine pH 5.5 (5.0-9.0) Ur Specific [place] 1.015 (1.005-1.025) Urine Protein Negative (Neg-Trace) mg/dL Urine Glucose (UA) >=1000 H (Negative) mg/dL Urine Ketones Negative (Negative) mg/dL Urine Blood Negative (Negative) Urine Nitrite Negative (Negative) Ur Leukocyte Esterase Negative (Negative) Urine RBC 0-2 (0-2) /HPF Urine WBC 0-5 (0-5) /HPF Ur Squamous Epith Cells 0-2 (0-2) /HPF Urine Bacteria None Seen (None Seen) Hyaline Casts 0-2 (0-2) /LPF Independent Interpretation I performed an independent interpretation of an: EKG Radiology Impression Discussion of test interpretation with radiology: I have reviewed the radiologist's reading. External Record Review External record reviewed: Inpatient record, Office record, Outpatient record, Prior outpatient labs, Prior outpatient radiology, Primary care record and Outside ED record Tests considered The following testing was considered but not selected: As above Prescription Management I considered prescription management with: Other Chronic Conditions Patient?s care impacted by: Other Social Determinants Patient?s care significantly limited by Social Determinants of Health including: Other Social Determinant of Health Discharge Plan Discharge Clinical Impression: Dizziness Patient Disposition: Home, Self-Care Instructions: Dizziness (ED) Additional Instructions: Your blood work is reassuring Please have close follow-up with your primary care doctor as well as Neurology and ENT Continue home prescribed medications including Ativan and meclizine Contact your Ativan prescriber to discuss dose adjustment If her symptoms persist or worsen, dizziness is different, you have headache, vision change or loss, weakness return to the ED Prescriptions: No Action metoprolol succinate 50 mg tablet extended release 24 hr 50 mg PO DAILY sertraline 100 mg tablet 100 mg PO DAILY insulin lispro [Humalog KwikPen Insulin] 100 unit/mL insulin pen See Protocol subcut TIDAC Protocol: Insulin Correction Scale Less than or equal to 110 ---- Give (units): 0 111 to 150 Give (units): 0 151 to 200 Give (units): 2 201 to 250 Give (units): 4 251 to 300 Give (units): 6 301 to 350 Give (units): 8 Greater than 350 Give (units): 10 Call MD if Blood Glucose > : 350 insulin glargine U-300 conc [Toujeo Max U-300 SoloStar] 300 unit/mL (3 mL) insulin pen 55 unit subcut BID ondansetron 4 mg tablet,disintegrating 4 mg PO Q8H PRN (Reason: nausea and vomiting) Qty: 20 0RF lorazepam 0.5 mg tablet 0.5 mg PO TID PRN (Reason: anxiety, Vertigo) Qty: 20 0RF meclizine 25 mg tablet 25 mg PO TID PRN (Reason: dizziness) Qty: 60 1RF amlodipine 10 mg tablet 10 mg PO DAILY aspirin 81 mg tablet,delayed release (DR/EC) 81 mg PO DAILY atorvastatin 40 mg tablet 40 mg PO DAILY chlorthalidone 25 mg tablet 25 mg PO DAILY dapagliflozin propanediol [Farxiga] 5 mg tablet 5 mg PO DAILY fenofibrate micronized 134 mg capsule 134 mg PO DAILY lisinopril 40 mg tablet 40 mg PO DAILY metformin 850 mg tablet 850 mg PO BID Referrals: [facility] [Outside] Divya Dan MD [Primary Care Provider] - 3 days Shady Banks [Physician] - Print Language: Sami
[2024-11-30 09:36] LABS: Bacteria Urine None Seen (None Seen); Hyaline Casts Urine 0-2 /LPF (0-2); RBC Urine 0-2 /HPF (0-2); Squamous Epithelial Cell Urine 0-2 /HPF (0-2); WBC Urine 0-5 /HPF (0-5)
[2024-11-30 12:03] VITALS: BP 140/66; PULSE 65; RESP 18; TEMP 36.7; O2SAT 98
== END 2024-11-30 12:05 | disposition home or self-care (01) ==
PROVIDERS: Physician Assistant; Emergency Provider Emergency Medicine Emergency Medical Services; PCP Internal Medicine
DX: R42 Dizziness and giddiness (principal); R11.0 Nausea; I10 Essential (primary) hypertension; E11.9 Type 2 diabetes mellitus without complications; Z79.899 Other long term (current) drug therapy; Z79.4 Long term (current) use of insulin
CPT/HCPCS: 36415; 80053; 81001; 84484; 85025; 93005; 99283; 99285

== ENCOUNTER → 2024-11-30 04:47 | Outpatient (BNV) | payer MEDICARE, SELFPAY | PROVIDERS: Emergency Provider Emergency Medicine Emergency Medical Services; PCP Internal Medicine; Visit Provider Internal Medicine Cardiovascular Disease | DX: R42 Dizziness and giddiness (principal) | CPT/HCPCS: 93010 ==

== ENCOUNTER 2025-06-05 08:44 | Outpatient (AMB) | payer MEDICARE, SELFPAY ==
--- NOTE | 2025-06-05 08:49 | A.OFFVIS_ITS ---
Vital Signs 06/05/25 08:50 Height 5 ft 10 in Weight 240 lb 4.862 oz BMI 34.5 BP 126/78 Blood Pressure Location Rt brachial Position Sitting Pulse 68 Pulse Source Pulse Oximeter Pulse Oximetry (%) 95 Oxygen Delivery Method Room Air Intake Visit Reasons: T2DM Intake Note: NEW Patient presents today to establish treatment for Type 2 Diabetes Mellitus: Last Diabetic eye exam was on: 09/2024, Last Podiatry exam was on: Patient does not see a Wastewater Technician Most recent HbA1c: 7.8%, 05/22/2025 Done at [facility] Random Glucose: 232 mg/dL Regulatory Leader Required: No Accompanied by: Self / Same As Patient Allergies No Known Allergies Allergy (Verified 06/05/25 08:51) HPI Comments Details: The patient is a 75 year old male presenting for diabetes consult Past medical history HTN, HLD, obesity, TOÑO fatty liver Current medication Lantus 50u bid -missing some evening doses Metformin 850mg twice daily Farxiga 5mg Humalog SS 100-149 6 units 150-199 8 units 200-249 10 units 250-299 12 units 300-349 14 units >250 16 units CGM reviewed GMI 7.6% 53% TGT 46% high 1% low A1C 7.8% 05/22/25 at [facility] Eye exam 09/2024- denies significant diabetic changes ROS CONSTITUTIONAL: Denies weight loss, fever and chills. HEENT: Denies changes in vision and hearing. RESPIRATORY: Denies SOB and cough. CV: Denies palpitations and CP GI: Denies abdominal pain, nausea, vomiting and diarrhea. : Denies dysuria and urinary frequency. MSK: Denies new myalgia and joint pain. SKIN: Denies rash and pruritus. NEUROLOGICAL: Denies headache PSYCHIATRIC: Denies recent changes in mood. PHYSICAL EXAM: GENERAL: Alert and oriented x 3. NAD EYES: EOMI. Anicteric. HENT: Moist mucous membranes. No scleral icterus. No cervical lymphadenopathy. LUNGS: Clear to auscultation bilaterally. CARDIOVASCULAR: Regular rate and rhythm. No murmur. No JVD. ABDOMEN: Soft, non-tender +bs EXTREMITIES: No edema. Non-tender. SKIN: No rashes or lesions. Warm. NEUROLOGIC: No focal neurological deficits. CN II-XII grossly intact PSYCHIATRIC: Cooperative. Appropriate mood and affect [facility] Medical History (Updated 06/09/25 @ 18:09 by Nickie Toscano MD) Venous insufficiency Uncontrolled diabetes mellitus with hyperglycemia Renal cyst TOÑO (obstructive sleep apnea) Nuclear sclerosis of both eyes Mild depression Left inguinal hernia IBS (irritable bowel syndrome) Hypertension associated with diabetes Hypercholesteremia GERD (gastroesophageal reflux disease) Generalized OA Former tobacco use Fatty liver disease, nonalcoholic Erectile dysfunction Diabetes with retinopathy Diabetes Chronic vertigo Anxiety Aneurysm, thoracic aortic Vertigo Surgical History S/P total knee arthroplasty H/O endoscopy Hx of colonoscopy H/O total knee replacement Hx of cholecystectomy Social History Alcohol intake: never Patient Tobacco Use Status: Never used Tobacco Physical Exam Vital Signs: Last Vital Signs Pulse 68 06/05/25 08:50 BP 126/78 06/05/25 08:50 Pulse Ox 95 06/05/25 08:50 Oxygen Delivery Method Room Air 06/05/25 08:50 BMI result Body Mass Index 34.5 Results Reviewed Results Reviewed: Laboratory Last Values Glucose (Clinic) 232 mg/dL (60-115) H 06/05/25 09:01 Assessment & Plan Assessment & Plan (1) Uncontrolled diabetes mellitus with hyperglycemia: Code(s): E11.65 - Type 2 diabetes mellitus with hyperglycemia Category: Medical Qualifiers: Diabetes mellitus type: type 2 Qualified Code(s): E11.65 - Type 2 diabetes mellitus with hyperglycemia Plan Diabetes, uncontrolled Has some hypoglycemia generally overnight Start acarbose with dinner Start ozempic 0.25 mg weekly Continue insulin, farxiga Treat hypoglycemia by rules of 15s. Medications: New semaglutide (Ozempic) for 4 weeks 0.25 mg (0.368 mL) subcut QWEEK 3 mL 3RF acarbose with dinner 50 mg PO DAILY 90 tabs 3RF Coding Level of Care Code Est Pt Level 4 (25871) Diagnoses Uncontrolled type 2 diabetes mellitus with hyperglycemia E11.65 Diabetes mellitus type: type 2
[2025-06-05 08:50] VITALS: BP 126/78; PULSE 68; O2SAT 95; BMI 34.5
[2025-06-05 09:04] LABS: Glucose, Whole Blood 232 mg/dL (60-115)
== END 2025-06-05 09:37 | disposition home or self-care (01) ==
LOC: HO.ENCR 08:44
PROVIDERS: PCP Internal Medicine; Visit Provider Internal Medicine
DX: E11.65 Type 2 diabetes mellitus with hyperglycemia (principal)

== ENCOUNTER → 2025-06-05 08:44 | Outpatient (BNVA) | payer MEDICARE, SELFPAY | PROVIDERS: PCP Internal Medicine; Visit Provider Internal Medicine | DX: E11.65 Type 2 diabetes mellitus with hyperglycemia (principal); Z79.4 Long term (current) use of insulin; Z79.84 Long term (current) use of oral hypoglycemic drugs | CPT/HCPCS: 82947; 99212 ==

== ENCOUNTER 2025-06-19 07:49 | Outpatient (AMB) | payer MEDICARE, SELFPAY ==
--- NOTE | 2025-06-19 07:51 | AM.OFFWIN_ITS ---
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 - The patient reports right ear pain goi ng into the side of his neck and into his throat discomfort for about a week, with the symptoms worsening over the last few days. - The patient denies fever, shortness of breath, or wheezing. - The patient has a history of sudden he aring loss in the left ear about five years ago, with no definitive diagnosis provided after an MRI showed no mass or cancer. - The patient has history of tonsillecto my. - The patient is diabetic so he doesn't want to take any OTC meds as they have carbs. Review of Systems - General: Denies fever. - Respiratory: Denies shortness of breat h or wheezing. - Ear, Nose, Throat: Reports ear pain an d throat discomfort. Denies any history of tonsillitis or abscess. All systems reviewed and are unremarkable except as noted in HPI Physical Exam General: Cooperative, healthy appearing, comfortable and no acute distress Orientation/consciousness: Patient oriented x3 Limitations: No limitations Head: Normal to inspection Ears: Hearing grossly normal in the right ear, EACs normal bilaterally, TM normal on right, perforated TM on left Nose: Normal external nose present, Normal nares present and No nasal discharge present Face and sinus: Normal facial exam and sinuses nontender Mouth: Normal oral and palatal mucosa present and moist mucous membranes Throat: No tonsils, uvula deviated to the right, no abscess noted, no edema, posterior oropharynx erythema Eyes: Appearance normal, both eyes and all related structures Neck: Normal visual inspection, full ROM, no lynphadenopathy Respiratory: Clear to auscultation bilaterally. Normal respiratory effort, able to speak in complete sentences, not actively coughing, no respiratory distress, not tachypneic, no tripod positioning and no use of accessory muscles Cardiovascular: Regular rate and rhythm. Normal S1 and S2 Skin: No rashes or lesions noted Neuro: Patient oriented x3 Extremities: Normal to inspection and Yes no clubbing, cyanosis or edema PFSH Medical History (Updated 06/19/25 @ 08:20 by Erica Aguilar PA-C) Venous insufficiency Uncontrolled diabetes mellitus with hyperglycemia Renal cyst TOÑO (obstructive sleep apnea) Nuclear sclerosis of both eyes Mild depression Left inguinal hernia IBS (irritable bowel syndrome) Hypertension associated with diabetes Hypercholesteremia GERD (gastroesophageal reflux disease) Generalized OA Former tobacco use Fatty liver disease, nonalcoholic Erectile dysfunction Diabetes with retinopathy Diabetes Chronic vertigo Anxiety Aneurysm, thoracic aortic Vertigo Surgical History S/P total knee arthroplasty H/O endoscopy Hx of colonoscopy H/O total knee replacement Hx of cholecystectomy Social History Alcohol intake: never Patient Tobacco Use Status: Never used Tobacco Physical Exam Vital Signs: Last Vital Signs Temp 98.8 F 06/19/25 07:53 Pulse 73 06/19/25 07:53 Resp 16 06/19/25 07:53 BP 144/62 H 06/19/25 07:53 Pulse Ox 98 06/19/25 07:53 Oxygen Delivery Method Room Air 06/19/25 07:53 BMI result Body Mass Index 34.7 Assessment & Plan Assessment & Plan (1) URI, acute: Code(s): J06.9 - Acute upper respiratory infection, unspecified Plan: Plan Patient was informed and verbally consented to the use of an ambient scribe for clinic note documentation during this visit. - VSS, pt well appearing and PE remarkable for deviated uvula, pt has no tonsils, no abscess noted, infection vs post surgical changes. - Prescribed Augmentin to be taken twice daily for seven days to address potential bacterial infection causing the deviation. - Advised to monitor for fever or difficulty swallowing, and to seek emergency care if symptoms worsen. - Sent Flu, Covid and RSV testing. - No immediate surgical intervention planned; advised to follow up with ENT for further evaluation. - Can use OTC diabetic decongestant, sent maribel navarreteles to control coughing at night. Orders: Orders SARS-CoV2/FLU/RSV Today R09.89 - Other specified symptoms and signs involving the circulatory and respiratory systems Medications: New amoxicillin-pot clavulanate 875-125 mg 1 tab PO Q12H 14 tabs 0RF benzonatate 200 mg PO BEDTIME PRN 10 caps 0RF cough Coding Level of Care Code New Pt Level 3 (70453) Diagnoses URI, acute J06.9
--- OUTSIDE RECORDS SUMMARY | 2025-06-19 07:51 | XMS_ITS | Clinical Summary ---
Author Organization [facility] Address [address] [place] [id number] Care Team Providers Care Wire Spooler Name Role Phone Unavailable Primary Care Provider [...] Td or Tdap) 09/01/2019 09/01/2009 COVID-19 Vaccine (3 - season) 2025 12/04/2020, 11/06/2020 Influenza Vaccine (#1) 2025 0, 04/28/2019, 05/04/2017, Additional history exists RSV [...]
--- OUTSIDE RECORDS SUMMARY | 2025-06-19 07:51 | XMS_ITS | Clinical Summary ---
Author Organization [facility] it Address [address] [place] [address] Care Team Providers Care Associate Professor Of Forestry Name Role Phone Divya Dan MD Primary Care Provider Immunizations Immunization Administration Dates Next Due Moderna SARS-CoV-2 COVID-19, mRNA, LNP-S, preservative free 12/04/2020,11/06/2020 Surgical History Surgery Date Site/Laterality Comments TONSILLECTOMY PROCEDURE: HISTORICAL TONSILLECTOMY NASAL SEPTUM SURGERY PROCEDURE: WI SEPTOPLASTY/SUBMUCOUS RESECJ W/WO CARTILAGE GRF TOTAL KNEE ARTHROPLASTY 08/2009 PROCEDURE: HISTORICAL TOTAL KNEE REPLACE; COMMENT: Left COLONOSCOPY 05/28/2008 PROCEDURE: HISTORICAL COLONOSCOPY; COMMENT: Up to cecum, adequate preparation, colon polyp removed:polypoid colonic mucosa(no adenoma), mild diverticulosis UPPER GASTROINTESTINAL ENDOSCOPY 1998 PROCEDURE: WI UPPER GI ENDOSCOPY PERFORMED; COMMENT: Dr. Britton for heartburn UPPER GASTROINTESTINAL ENDOSCOPY 11/17/2018 PROCEDURE: [place] UPPER GI ENDOSCOPY PERFORMED; COMMENT: normal on [...] COMMENT: Left - 2009 Thoracic aortic aneurysm ([facility] V24) 11/29/2018 DX:Thoracic aortic aneurysm (HCC); COMMENT: 12/01 4.0 ascending aorta and 3.1 cm transverse aorta Ascending aorta dilation (CMS/HCC V24) 03/17/2021 DX:Ascending aorta dilation (HCC) Family [...] 1 Schizophrenic, penile cancer? Brother 2 Alive [place] 45 , CABG 55 ; dementia Daughter Alive 4 healthy Father Cancer [place] Maternal Grandfather [place] Maternal Grandmother [place] Mother Cancer Lung , D m Other [...] Health Maintenance Due Date Last Done Comments Colorectal Cancer Screening: Colonoscopy 1951 Diabetes: Annual GFR (Glomerular Filtration Rate) 1951 Diabetes: Annual Foot Exam 1961 Diabetes: Annual Retina Eye Exam 1961 Hepatitis A Vaccines (1 of 2 - Risk 2-dose series) 1970 RSV Immunization Adult Patients (1 - Risk 50-74 years 1-dose series) 2001 Zoster Vaccines (1 of 2) 2001 Hepatitis B Vaccines (1 of 3 - Risk 3-dose series) 2011 Abdominal Aortic Aneurysm (AAA) Screen 07/23/2022 Cholesterol Screening (Lipid Panel) 07/23/2022 Falls Risk Assessment 07/23/2022 Hepatitis C Screening 07/23/2022 Social Influencers of Health Screening 07/23/2022 Hypertension/CHF/CAD Annual BMP Blood Test 07/25/2022 Diabetes: Annual Urine Albumin-Creatinine Ratio (uACR) 07/30/2022 Diabetes: Blood Sugar Control Test (HGBA1C) 07/30/2022 Depression Screening 08/15/2024 COVID-19 Vaccine (4 - 2024- season) 2025 06/22/2021, 12/04/2020, 11/06/2020 Influenza Vaccine (#1) 2025 , 04/28/2019, 05/04/2017, Additional history exists DTaP,Tdap,and Td [...] age to complete this topic Care Teams Associate Professor Of Forestry Relationship Specialty Start Date End Date Divya Dan MD PCP - General 07/21/22
--- OUTSIDE RECORDS SUMMARY | 2025-06-19 07:51 | XMS_ITS | Data Portability ---
Author Organization [place] - [facility], Allergy Address [address] [address] Care Team Providers Care Tester Electronic Scale Name Role Phone DAWIT PICHARDO Primary Care Provider Assessment Encounter Date Assessment Date Assessment LastModified by Organization Details LastModified Time 12/12/2024 12/12/2024 74-year-old male with history of left-sided sudden sensorineural hearing loss presents for evaluation of disequilibrium. He reports recurrent episodes of room-spinning dizziness without inciting event, illness, or medication change for 6 months. He completed 3 sessions of vestibular rehabilitation with minimal improvement. Significant improvement with Lorazepam and Meclizine, prescribed by his primary care provider. Denies associated changes to hearing or tinnitus. TMs are normal to inspection. Middle ear spaces are well aerated. Kar-Hallpike maneuver was negative bilaterally. Recent audiometric testing has been requested from Dr. Joyner's office, and patient will drop off a copy at his earliest convenience. We discussed his history is consistent with vestibular injury as well as non-otologic dizziness. There is low suspicion for benign paroxysmal postional vertigo. MRI of the IACs without contrast in 2019 was normal. Recommend MRI of the IACs with contrast to rule out retrocochlear pathology, and we will call patient with the results. We discussed his daily medications may also be contributing to his constant light headedness. Will refer to neurology for further evaluation of non-otologic dizziness. [email or web address] Not available 12/12/2024 16:39:52 Plan of Treatment Reminders Order Date Submit Date Provider Last Modified By Organization Details Last Modified Time Details Appointments None recorded. Lab None recorded. Referral neurologis t referral 2024 025 [facility] Scheduling, [address], [place], [address], 13:41:42 Procedures None recorded. Surgeries None recorded. Imaging MRI, brain + internal auditory canal, w/wo contrast - next available. ...IAC protocol 2024 025 [facility] ([facility] [address] [place], [address], 12:11:03 Medication Orders None recorded. Patient TargetsNo targets recorded. Patient InstructionsNo instructions recorded. Reason for Referral Neurologist Referral for Samuel rubio Referring Physician: Veronique Benjamin, Otolaryngology, Encounter Date: 12/12/2024 Results Created Date Observation Date Name Description Value Unit Range Abnormal Flag Note LastModifiedBy Organization Detail LastModifiedTime 12/14/19 25 10/30/2024 CT, brain , w/o contr ast No observ ation record ed. [email or web address] Not Available 08/2024 10:56:36 12/25/19 25 12/20/2024 MRI, brain + inter nal audit ory canal , w/wo contr ast No observ ation record ed. amaury [facility] [address] [place], [address], 12/24/2024 12:44:28 Result Notes None recorded. Problems Name Problem SNOMED Code Status Onset Date Resolution Date Notes Provider Name and Address Organization Details Recorded Time Bilateral tinnitus 58931063896 02 Active 2018 Tinnitus, bilateral ; Note: Date Diagnosed : 02/13/2019 3:14 PM (H93.13) VERONIQUE BENJAMIN PA-C [address] [place] [address],[place] [address], [facility] [place], [address] , [facility] - [facility] 5 16:40:04 Dizziness and giddiness 880085614 Active 2018 Dizziness and giddiness ; Note: Date Diagnosed : 02/13/2019 3:14 PM (R42) Not Available [facility] 4 02:29:06 Sensorine ural hearing loss of bilateral ears 996543435 Active 2018 Sensorine ural hearing loss, bilateral ; Note: Date Diagnosed : 02/13/2019 3:14 PM (H90.3) Not Available [facility] 4 02:28:45 Sudden idiopathi c hearing loss 366013767 Active 2018 Sudden idiopathi c hearing loss, left ear; Note: Date Diagnosed : 02/13/2019 3:43 PM (H91.22) Not Available [facility] 4 02:28:46 Tinnitus 81943788 Active 2024 VERONIQUE BENJAMIN PA-C [address], [place], [place], [address] , [facility] - [facility] 5 13:01:42 Sensorine ural hearing loss 68718382 Active 2024 VERONIQUE BENJAMIN PA-C [address],[place] [facility], [place], [place], [address] , [facility] - [facility] 5 13:01:42 Asymmetri marta sensorine ural hearing loss 071676674 Active 2024 VERONIQUE BENJAMIN PA-C [address], [place], [place], [address] , [facility] - [facility] 5 13:02:39 Periphera l vertigo 46342348 Active 2024 VERONIQUE BENJAMIN PA-C [address], [place], [place], [address] , [facility] - [facility] 5 15:33:54 Dizziness 513857720 Active 2024 VERONIQUE BENJAMIN PA-C [address], [place], [place], [address] , [facility] 5 16:34:48 Problem Notes None recorded. Medical Equipment None Reported. Allergies No known drug allergies Medications Name Sig Start Date Stop Date Status Note LastModified by Organization Details LastModified Time pioglitaz one 15 mg tablet 2018 active Medicati on ID: [id number] D uration Value: 90 Brand Name: caity rosales Sen d Method: E-Prescr ibed Sub s Allowed: subs OK Speci al Instruct ion: TAKE 1 TABLET BY MOUTH EVERY DAY Medi cationGe nericNam e: charuoglita zone Not Available Not Available Not Available atorvasta tin 40 mg tablet TAKE 1 TABLET BY MOUTH EVERY DAY active Not Available Not Available No t Available prednison e 10 mg tablet 02/24 completed Medicati on ID: [id number] P chasidy d By Name: Channing Celis nd Name: predniso ne Send Method: E-Prescr ibed Sub s Allowed: subs OK Speci al Instruct ion: 6 tabs daily for 9 days then taper As directed Medicat ionGener icName: predniso ne Not Available Not Available Not Available Glucagon Emergency Kit 1 mg solution for injection PLEASE SEE ATTACHED FOR DETAILED DIRECTIO NS active Not Available Not Available No t Available metoprolo l succinate ER 50 mg tablet,ex tended release 24 hr TAKE 1 TABLET BY MOUTH EVERY DAY active Not Available Not Available No t Available hydrochlo rothiazid e 50 mg tablet TAKE 1 TABLET BY MOUTH EVERY OTHER DAY active Not Available Not Available No t Available lisinopri l 20 mg tablet 2018 active Medicati on ID: [id number] D uration Value: 90 Brand Name: lisinopr il Send Method: E-Prescr ibed Sub s Allowed: subs OK Speci al Instruct ion: TAKE 1 TABLET BY MOUTH EVERY DAY Medi cationGe nericNam e: lisinopr il Not Available Not Available Not Available sertralin e 100 mg tablet TAKE 1 TABLET BY MOUTH EVERY DAY active Not Available Not Available No t Available metformin 850 mg tablet TAKE 1 TABLET BY MOUTH 3 TIMES A DAY BEFORE MEALS active Not Available Not Available No t Available nystatin 500,000 unit tablet TAKE 2 TABLETS BY MOUTH TWICE A DAY active Not Available Not Available No t Available meclizine 12.5 mg tablet TAKE 1 TABLET ORALLY 3 TIMES A DAY NEEDED FOR DIZZINES S active Not Available Not Available No t Available chlorthal idone 25 mg tablet TAKE 1 TABLET BY MOUTH DAILY active Not Available Not Available No t Available doxycycli ne monohydra te 100 mg tablet TAKE 2 TABLETS BY MOUTH ONCE WITH FOOD TO MINIMIZE ABDOMINA L DISCOMFO RT 12/12 completed Not Available Not Available Not Available fenofibra te micronize d 134 mg capsule TAKE 1 CAPSULE BY MOUTH EVERY DAY active Not Available Not Available No t Available glimepiri de 1 mg tablet TAKE 1 TABLET BY MOUTH EVERY DAY active Not Available Not Available No t Available lorazepam 0.5 mg tablet TAKE 1 TABLET BY MOUTH TWICE A DAY active Not Available Not Available No t Available meclizine 25 mg tablet TAKE 1 TABLET BY MOUTH 3 TIMES A DAY NEEDED FOR DIZZINES S active Not Available Not Available No t Available amlodipin e 10 mg tablet TAKE 1 TABLET BY MOUTH EVERY DAY active Not Available Not Available No t Available lisinopri l 30 mg tablet TAKE 1 TABLET BY MOUTH EVERY DAY active Not Available Not Available No t Available irbesarta n 75 mg tablet TAKE 1 TABLET BY MOUTH EVERY DAY active Not Available Not Available No t Available furosemid e 20 mg tablet 2018 active Medicati on ID: [id number] D uration Value: 90 Brand Name: furosemi de Send Method: E-Prescr ibed Sub s Allowed: subs OK Speci al Instruct ion: TAKE 1 TABLET BY MOUTH EVERY DAY Medi cationGe nericNam e: furosemi de Not Available Not Available Not Available metoprolo l succinate ER 25 mg tablet,ex tended release 24 hr 2018 active Medicati on ID: [id number] D uration Value: 90 Brand Name: metoprol ol succinat e Send Method: E-Prescr ibed Sub s Allowed: subs OK Baldevi al Instruct ion: TAKE 1 TABLET BY MOUTH EVERY DAY Medi cationGe nericNam e: metoprol ol succinat e Not Available Not Available Not Available lorazepam 1 mg tablet TAKE 1 TABLET BY MOUTH EVERY DAY NEEDED FOR NAUSEA AND VOMITING active Not Available Not Available No t Available lisinopri l 40 mg tablet TAKE 1 TABLET BY MOUTH EVERY DAY active Not Available Not Available No t Available ondansetr on 4 mg disintegr ating tablet DISSOLVE 1 TABLET ON TONGUE EVERY 8 HOURS NEEDED FOR NAUSEA AND VOMITING active Not Available Not Available No t Available ProAir HFA 90 mcg/actua tion aerosol inhaler 2018 active Medicati on ID: [id number] D uration Value: 17 Brand Name: ProAir HFA Send Method: E-Prescr ibed Sub s Allowed: subs OK aBldevi al Instruct ion: INHALE 2 PUFFS INTO THE LUNGS EVERY 4 HOURS NEEDED FOR COUGH, WHEEZ ING OR SHORTNES S OF BREATH. Medicati onGeneri cName: ProAir HFA Not Available Not Available Not Available Lantus Solostar U-100 Insulin 100 unit/mL (3 mL) subcutane ous pen INJECT 80 UNITS SUBCUTAN EOUSLY EVERY MORNING AND 10 UNITS BEFORE BED active Not Available Not Available No t Available Humalog KwikPen (U-100) Insulin 100 unit/mL subcutane ous INJECT 2-12 UNITS SUBCUTAN EOUSLY 3 TIMES A DAY MAX DAILY DOSE IS 40 UNITS active Not Available Not Available No t Available Farxiga 5 mg tablet TAKE 1 TABLET BY MOUTH EVERY DAY active Not Available Not Available No t Available Trulicity 0.75 mg/0.5 mL subcutane ous pen injector active Medicati on ID: [id number] D uration Value: 28 Brand Name: Carrie avendaño Send Method: E-Prescr ibed Sub s Allowed: subs OK Medic ationGen ericName : Cruzit y Not Available Not Available Not Available Toujeo Max U-300 SoloStar 300 unit/mL (3 mL) subcutane ous insulin pen INJECT 110 UNITS SUBCUTAN EOUSLY DAILY. active Not Available Not Available No t Available FreeStyle Jose 3 Sensor device APPLY 1 SENSOR EVERY 14 DAYS active Not Available Not Available No t Available FreeStyle Jose 3 [place] USE DIRECTED active Not Available Not Available No t Available Vitals Date Recorded Body height Body mass index (BMI) Body weight Provider Name and Address Organization Details Last Updated DateTime 12/12/2024 177.8 cm 34.4 kg/m2 297973.17 g Linda Deluca [place] - [facility] 12/12/2024 10:14:34 Social History None recorded. Functional Status Question Answer Note LastModified by Organization D etails LastModified Time What is your level of alcohol consumption? None [email or web address] Information not available 12/12/2024 Mental Status None recorded. Family History Nothing Reported. Medical History Condition Response Allergies/Hayfever N Heart Problems N Anxiety N Tonsil Infections N Emphysema N Migraines N Thyroid Problems N COPD N Depression N Developmental Delay N Glaucoma N Nasal or Sinus Problems N Anemia N Immune System Disorder N Anesthesia Complications N Heart Attack ([place]) N Other Skin Condition N Diabetes Y Rhinitis N Bleeding Disorder N Food Allergy N Hearing Loss N Arthritis N Hyperlipidemia N Cancer N Stroke Y Dementia N Nasal polyps N Asthma N Sleep Disorder N High Cholesterol N GERD/Reflux N Liver Disease N Headaches N Fibromyalgia N Hypertension Y Speech Delay N Kidney Disease N Past Encounters Encounter ID Performer Location Encounter Start Date Encounter Closed Date Diagnosis/Indication Diagnosis SNOMED-CT Code Diagnosis ICD10 Code Diagnosis IMO Codes Diagnosis Note [id number] VERONIQUE BENJAMIN PA-C [facility] [address] [place] [address] 12/12/2024 09:38:22 12/12/2024 10:46:43 Asymmetrical sensorineural hearing loss 347226527 H90.3 781726 Dizziness 808781516 R42 24726 Non-otolog ic dizziness and constant lightheade dness Bilateral tinnitus 83764 08682 102 H93.13 481543 Health Concerns Section Related Observation LastModified by Organization Detai ls LastModified Time None Recorded Concern Status LastModified by Organization Details LastModified Time None Recorded Advance Directives Directive None Recorded Payers Insurance Date Sequence Insurance Name Policy Number Policy Khoury Covered Member ID Khoury Member ID Guarantor Name 12/13/2024 1 [employer] MED[employer]ARE ADVANTAGE PLAN (MEDICARE REPLACEMENT HMO) [id number] Abiodun Banerjee [id number] Abiodun Banerjee Notes Date Note Type Note Provider Name and Address Organization Details Recorded Time 12/12/2024 text/html ROS as noted in the HPI 74-year-old male with history of sudden sensorineural hearing loss presents for evaluation of disequilibrium. He reports intermittent bilateral tinnitus is stable. He has longstanding dizziness, but developed severe room-spinning episodes 6 months ago. He went to the hospital 6x in the last 6 months with unbearable dizziness and vomiting. Episodes occur without head position changes. Constant light headedness. No improvement with vestibular rehabilitation PT. Denies associated chest pain, confusion, slurred speech, photophobia, or extremity weakness. Fortunately, he is asymptomatic today. Symptoms significantly improved and no reoccurence of dizziness since he started daily meclizine and lorazepam 1 month ago. MRI of the IACs in 2019 without contrast was normal, prior to his sudden hearing loss and vertigo. VERONIQUE BENJAMIN PA-C [address] [place] [address],[place] [address], [place], [address], [facility] - [facility] 12/12/2024 16:40:48
[2025-06-19 07:53] VITALS: BP 144/62; PULSE 73; RESP 16; TEMP 37.1; O2SAT 98; BMI 34.7
== END 2025-06-19 08:42 | disposition home or self-care (01) ==
PROVIDERS: PCP Internal Medicine; Visit Provider Physician Assistant
DX: J06.9 Acute upper respiratory infection, unspecified (principal)

== ENCOUNTER 2025-06-19 07:49 | Outpatient (REF) | payer MEDICARE, SELFPAY ==
--- OUTSIDE RECORDS SUMMARY | 2025-06-19 08:04 | XMS_ITS ---
Author Name [facility] Organization Unknown Care Team Organization Name Specialty Phone Email Start Date End Da te [facility] Kim Laird [facility] 06/22/2022 024
--- OUTSIDE RECORDS SUMMARY | 2025-06-19 08:04 | XMS_ITS | Patient Health Record ---
Author Organization [facility] Address [address] [facility] [address] [place] [address] Care Team Providers Care Administrative Processor Name Role Phone Divya Dan Primary Care Provider NADIA Graham Unavailable [phone] Allergies No Known Allergies Reason For Referral [...] tablet Orally Once a day Active Nystatin 218843 UNIT 1 tablet Orally Thr ee times a day Active Doxycycline Monohydrate 100 MG 1 tablet Orally Once a day Not-Taking Problems Problem Type SNOMED Code ICD Code Onset Dates Problem Status W/U Status Risk Notes Problem Peripheral circulatory disorder associated with diabetes mellitus (957383059) Type 2 diabetes mellitus with other circulatory complications (E11.59) Active confirmed Vital Signs Heart Rate 58 /min 07/16/2024 Temperature 97.4 degrees Fahrenheit 07/16/2024 Respiratory Rate 16 /min 07/16/2024 Height 5ft 10in in 07/16/2024 Weight 244.5 lbs 07/16/2024 BMI 35.08 kg/m2 07/16/2024 Encounters Encounter Location Date Provider Diagnosis [facility] [address] [address] 07/16/2024 NADIA RODRIGUEZ Ingrown right big toenail L60.0 ; Pain in right toe(s) M79.674 ; Onychomycosis B35.1 and Type 2 diabetes mellitus with other circulatory complications E11.59 [facility] [address] [address] 07/23/2024 NADIA RODRIGUEZ Assessments Encounter Date Diagnosis [...] Date [employer] MED[employer] 1 [facility] [place] [address] [place] [address] [id number] Abiodun Banerjee Self - patient is the [...] cyst S/P knee replacement uncontrolled diabetes mellit w/ hyperglycemia, w/ long-term current use of insulin venous insufficiency COVID vaccinated X 3 (Moderna) Surgical History Surgery Date(Month/Year) colonoscopy 05/03 Endoscopy of upper gastrointestinal trac t 12/01 colonoscopy 05/22 knee arthroplasty tonsillectomy left knee replacement Hospitalization History Reason Date(Month/Year) left knee replacement
[2025-06-19 11:07] LABS: Resp Syncy Virus RNA Qual PCR NEGATIVE (Negative); SARS COV2 PCR INHOUSE NEGATIVE (Negative)
== END 2025-06-19 07:50 | disposition home or self-care (01) ==
LOC: HO.LAB 07:49
PROVIDERS: Physician Assistant; PCP Internal Medicine
DX: J06.9 Acute upper respiratory infection, unspecified (principal)
CPT/HCPCS: 87637; 99202

== ENCOUNTER 2025-06-28 07:34 | Outpatient (AMB) | payer MEDICARE, SELFPAY ==
--- NOTE | 2025-06-28 07:36 | MHC.OFFWIV ---
Intake Vital Signs 06/28/25 07:38 Height 5 ft 10 in Weight 245 lb BMI 35.2 BP 136/60 Blood Pressure Location Rt brachial Position Sitting Respiration 16 Pulse 70 Pulse Source Pulse Oximeter Temp 98.4 F Pulse Oximetry (%) 96 Oxygen Delivery Method Room Air Intake Visit Reasons: EP sore throat and stuffy nose Intake Note: Pt is here today c/o sore throat, cough and nasal congestion: finished abx sx's lingering Patient Tobacco Use Status: Never used Tobacco Allergies No Known Allergies Allergy (Verified 06/28/25 07:37) HPI HPI Comments History of Present Illness Details History - The patient is a 75-year-old male presenting with a viral upper respiratory infection. - History of Problem: The patient reports a recurrence of symptoms after stopping antibiotics, with symptoms persisting for approximately three weeks. - Detailed Description of the Problem: Symptoms include a deep cough, headache, and nasal drip, with improvement noted in ear pain. - Progression: The patient was previously seen on June 19 and was prescribed Augmentin and Tessalon pearls, with the latter providing symptomatic relief. - Interventions: Augmentin was ineffective, suggesting a viral etiology, while Tessalon pearls were effective in reducing cough. - Relevant Medical History: The patient denies any history of COPD or smoking, and reports a history of hypertension. Review of Systems - Respiratory: Reports deep cough and nasal drip. Denies shortness of breath and significant wheezing. - Neurological: Reports headache. - Ear, Nose, Throat: Reports improvement in ear pain, presence of nasal drip. All systems reviewed and are unremarkable except as noted in HPI Physical Exam General: Cooperative, healthy appearing, comfortable and no acute distress Orientation/consciousness: Patient oriented x3 Limitations: No limitations Head: Normal to inspection Ears: Hearing grossly normal bilaterally, external ears normal, EAC's with cerumen on right, TM with hole on left, TM blocked by cerumen on right Nose: Normal external nose present, Normal nares present and No nasal discharge present Face and sinus: Normal facial exam and sinuses nontender Mouth: Normal oral and palatal mucosa present and moist mucous membranes Throat: tonsils normal, no exudates, uvula midline, posterior oropharynx erythema Eyes: Appearance normal, both eyes and all related structures Neck: Normal visual inspection, full ROM Respiratory: Clear to auscultation bilaterally. Normal respiratory effort, able to speak in complete sentences, not actively coughing, no respiratory distress, not tachypneic, no tripod positioning and no use of accessory muscles Cardiovascular: Regular rate and rhythm. Normal S1 and S2 Skin: No rashes or lesions noted Neuro: Patient oriented x3 Extremities: Normal to inspection and Yes no clubbing, cyanosis or edema [facility] Medical History (Updated 06/19/25 @ 08:20 by Erica Aguilar PA-C) Venous insufficiency Uncontrolled diabetes mellitus with hyperglycemia Renal cyst TOÑO (obstructive sleep apnea) Nuclear sclerosis of both eyes Mild depression Left inguinal hernia IBS (irritable bowel syndrome) Hypertension associated with diabetes Hypercholesteremia GERD (gastroesophageal reflux disease) Generalized OA Former tobacco use Fatty liver disease, nonalcoholic Erectile dysfunction Diabetes with retinopathy Diabetes Chronic vertigo Anxiety Aneurysm, thoracic aortic Vertigo Surgical History S/P total knee arthroplasty H/O endoscopy Hx of colonoscopy H/O total knee replacement Hx of cholecystectomy Social History Alcohol intake: never Patient Tobacco Use Status: Never used Tobacco Physical Exam Vital Signs: Last Vital Signs Temp 98.4 F 06/28/25 07:38 Pulse 70 06/28/25 07:38 Resp 16 06/28/25 07:38 BP 136/60 06/28/25 07:38 Pulse Ox 96 06/28/25 07:38 Oxygen Delivery Method Room Air 06/28/25 07:38 BMI result Body Mass Index 35.2 Results AMB Rapid Strep AMB Rapid Strep Negative Last Edit by Ruthie Blackmon CMA on 06/28/25 07:56 Assessment & Plan Assessment & Plan (1) URI, acute: Code(s): J06.9 - Acute upper respiratory infection, unspecified Plan: Plan Patient was informed and verbally consented to the use of an ambient scribe for clinic note documentation during this visit. - VSS, pt well appearing and PE unremarkable. - on 06/19, viral panel was negative. - Continue symptomatic treatment with Tessalon pearls for cough relief. - Consider Coricidin for decongestion, which is safe for hypertension. - Advise rest, hydration, and symptomatic care as the infection is likely viral. - Can add daily allergy pill to help symptoms Orders: Orders AMB Rapid Strep Screen Today Z13.9 - Encounter for screening, unspecified Medications: Refilled benzonatate 200 mg PO BEDTIME PRN 10 caps 0RF cough Coding Level of Care Code New Pt Level 3 (24485) Diagnoses URI, acute J06.9
--- OUTSIDE RECORDS SUMMARY | 2025-06-28 07:36 | XMS_ITS | Patient Health Record ---
Author Organization [facility] Address [address] [facility] [address] [place] [address] Care Team Providers Care Investigation Manager Name Role Phone Divya Dan Primary Care Provider NADIA Graham Unavailable [phone] Allergies No Known Allergies Reason For Referral [...] tablet Orally Once a day Active Nystatin 513089 UNIT 1 tablet Orally Thr ee times a day Active Doxycycline Monohydrate 100 MG 1 tablet Orally Once a day Not-Taking Problems Problem Type SNOMED Code ICD Code Onset Dates Problem Status W/U Status Risk Notes Problem Peripheral circulatory disorder associated with diabetes mellitus (287523957) Type 2 diabetes mellitus with other circulatory complications (E11.59) Active confirmed Vital Signs Heart Rate 58 /min 07/16/2024 Temperature 97.4 degrees Fahrenheit 07/16/2024 Respiratory Rate 16 /min 07/16/2024 Height 5ft 10in in 07/16/2024 Weight 244.5 lbs 07/16/2024 BMI 35.08 kg/m2 07/16/2024 Encounters Encounter Location Date Provider Diagnosis [facility] [address] [address] 07/16/2024 NADIA RODRIGUEZ Ingrown right big toenail L60.0 ; Pain in right toe(s) M79.674 ; Onychomycosis B35.1 and Type 2 diabetes mellitus with other circulatory complications E11.59 [facility] [address] [address] 07/23/2024 NADIA RODRIGUEZ Assessments Encounter Date Diagnosis [...] Date [employer] MED[employer] ADV[employer]AGE 1 [facility] [address] [place] [address] [phone] [id number] Abiodun Banerjee Self - patient is the [...]
--- OUTSIDE RECORDS SUMMARY | 2025-06-28 07:36 | XMS_ITS | Clinical Summary ---
Author Organization [facility] it Address [address] [place] [address] Care Team Providers Care Banking Pin Adjuster Name Role Phone Divya Dan MD Primary Care Provider [phone] Immunizations Immunization Administration Dates Next Due Moderna SARS-CoV-2 COVID-19, mRNA, LNP-S, preservative free 12/04/2020,11/06/2020 Surgical History Surgery Date Site/Laterality Comments TONSILLECTOMY PROCEDURE: HISTORICAL TONSILLECTOMY NASAL SEPTUM SURGERY PROCEDURE: [place] SEPTOPLASTY/SUBMUCOUS RESECJ W/WO CARTILAGE GRF TOTAL KNEE ARTHROPLASTY 08/2009 PROCEDURE: HISTORICAL TOTAL KNEE REPLACE; COMMENT: Left COLONOSCOPY 05/28/2008 PROCEDURE: HISTORICAL COLONOSCOPY; COMMENT: Up to cecum, adequate preparation, colon polyp removed:polypoid colonic mucosa(no adenoma), mild diverticulosis UPPER GASTROINTESTINAL ENDOSCOPY 1998 PROCEDURE: [place] UPPER GI ENDOSCOPY PERFORMED; COMMENT: Dr. Britton for heartburn UPPER GASTROINTESTINAL ENDOSCOPY 11/17/2018 PROCEDURE: [place] UPPER GI ENDOSCOPY PERFORMED; COMMENT: normal on [...] COMMENT: Left - 2009 Thoracic aortic aneurysm ([facility] V24) 11/29/2018 DX:Thoracic aortic aneurysm (HCC); COMMENT: [...] 1 Schizophrenic, penile cancer? Brother 2 Alive [place] 45 , CABG 55 ; dementia Daughter [...] age to complete this topic Care Teams Banking Pin Adjuster Relationship Specialty Start Date End Date Divya Dan MD PCP - General 07/21/22
--- OUTSIDE RECORDS SUMMARY | 2025-06-28 07:36 | XMS_ITS | Data Portability ---
Author Organization [place] - [facility], Allergy Address [address] [address] Care Team Providers Care Glove Former Name Role Phone DAWIT PICHARDO Primary Care [...] recorded. Referral neurologis t referral 2024 025 [facility] Neurology Scheduling, [address], [place], [address], 13:41:42 Procedures None recorded. Surgeries None recorded. Imaging MRI, brain + internal auditory canal, w/wo contrast - next available. ...IAC protocol 2024 025 [facility] ([facility] [address] [place], [address], 12:11:03 Medication Orders None recorded. Patient TargetsNo [...] ation record ed. amaury [facility] [address] [place], [address], 12/24/2024 12:44:28 Result Notes None recorded. Problems Name Problem SNOMED Code Status Onset Date Resolution Date Notes Provider Name and Address Organization Details Recorded Time Bilateral tinnitus [id number] 02 Active 2018 Tinnitus, bilateral ; Note: Date Diagnosed : 02/13/2019 3:14 PM (H93.13) VERONIQUE BENJAMIN PA-C [address] [place] [address],[place] [address], [facility] [place], [address] , [facility] - [facility] 5 16:40:04 Dizziness and giddiness 568062128 Active 2018 Dizziness and giddiness ; Note: Date Diagnosed : 02/13/2019 3:14 PM (R42) Not Available [facility] 4 02:29:06 Sensorine ural hearing loss of bilateral ears 791409784 Active 2018 Sensorine ural hearing loss, bilateral ; Note: Date Diagnosed : 02/13/2019 3:14 PM (H90.3) Not Available [facility] 4 02:28:45 Sudden idiopathi c hearing loss 348856289 Active 2018 Sudden idiopathi c hearing loss, left ear; Note: Date Diagnosed : 02/13/2019 3:43 PM (H91.22) Not Available [facility] 4 02:28:46 Tinnitus 22073733 Active 2024 VERONIQUE BENJAMIN PA-C [address],[place] [address], [place], [place], [address] , [facility] - [facility] 5 13:01:42 Sensorine ural hearing loss 25267635 Active 2024 VERONIQUE BENJAMIN PA-C [address],[place] [facility], [place], [place], [address] , [facility] - [facility] 5 13:01:42 Asymmetri marta sensorine ural hearing loss 899517210 Active 2024 VERONIQUE BENJAMIN PA-C [address],[place] [address], [place], [place], [address] , [facility] - [facility] 5 13:02:39 Periphera l vertigo 82012699 Active 2024 VERONIQUE BENJAMIN PA-C [address],[place] [address], [place], [place], [address] , [facility] - [facility] 5 15:33:54 Dizziness 824335514 Active 2024 VERONIQUE BENJAMIN PA-C [address],[place] [address], [place], [place], [address] , [facility] 5 16:34:48 Problem Notes None recorded. Medical Equipment None Reported. Allergies No known drug allergies Medications Name Sig Start Date Stop Date Status Note LastModified by Organization Details LastModified Time pioglitaz one 15 mg tablet 2018 active Medicati on ID: [id number] D uration Value: 90 Brand Name: caity [...] mg tablet 02/24 completed Medicati on ID: [id number] P chasidy d By Name: Channing Celis [...] mg tablet 2018 active Medicati on ID: [id number] D uration Value: 90 Brand Name: lisinopr [...] mg tablet 2018 active Medicati on ID: [id number] D uration Value: 90 Brand Name: furosemi de Send Method: E-Prescr ibed Sub s Allowed: subs OK Speci al Instruct ion: TAKE 1 TABLET BY MOUTH EVERY DAY Medi cationGe nericNam e: furosemi de Not Available Not Available Not Available metoprolo l succinate ER 25 mg tablet,ex tended release 24 hr 2018 active Medicati on ID: [id number] D uration Value: 90 Brand Name: metoprol [...] aerosol inhaler 2018 active Medicati on ID: [id number] D uration Value: 17 Brand Name: ProAir HFA Send Method: E-Prescr ibed Sub s Allowed: subs OK Baldevi al Instruct ion: INHALE 2 PUFFS INTO [...] ous pen injector active Medicati on ID: [id number] D uration Value: 28 Brand Name: Carrie [...] Available No t Available FreeStyle Jose 3 [place] USE DIRECTED active Not Available Not Available No t Available Vitals Date Recorded Body height Body mass index (BMI) Body weight Provider Name and Address Organization Details Last Updated DateTime 12/12/2024 177.8 cm 34.4 kg/m2 812322.17 g Linda Deluca [place] - [facility] 12/12/2024 10:14:34 Social History None recorded. Functional [...] Disorder N Anesthesia Complications N Heart Attack (MD) N Other Skin Condition N Diabetes Y [...] ICD10 Code Diagnosis IMO Codes Diagnosis Note [id number] VERONIQUE BENJAMIN PA-C [facility] [address] [place] [address] 12/12/2024 09:38:22 12/12/2024 10:46:43 Asymmetrical sensorineural hearing loss 470064893 H90.3 038473 Dizziness 782823232 R42 84551 Non-otolog ic dizziness and constant lightheade dness Bilateral tinnitus 19579 58058 102 H93.13 019472 Health Concerns Section Related Observation LastModified by Organization Detai ls LastModified Time None Recorded Concern Status LastModified by Organization Details LastModified Time None Recorded Advance Directives Directive None Recorded Payers Insurance Date Sequence Insurance Name Policy Number Policy Khoury Covered Member ID Khoury Member ID Guarantor Name 12/13/2024 1 [employer] MED[employer]ARE ADVANTAGE PLAN (MEDICARE REPLACEMENT HMO) [id number] 2 Abiodun aBnerjee [id number] Abiodun Banerjee Notes Date Note Type Note [...] hearing loss and vertigo. VERONIQUE BENJAMIN PA-C [address] [place] [address],[place] [address], [place], [address], [facility] - [facility] 12/12/2024 16:40:48
--- OUTSIDE RECORDS SUMMARY | 2025-06-28 07:36 | XMS_ITS | Clinical Summary ---
Author Organization [facility] Address [address] [place] [address] Care Team Providers Care Meter Tester Primary Name Role Phone Unavailable Primary Care Provider [...]
[2025-06-28 07:38] VITALS: BP 136/60; PULSE 70; RESP 16; TEMP 36.9; O2SAT 96; BMI 35.2
== END 2025-06-28 07:57 | disposition home or self-care (01) ==
PROVIDERS: PCP Internal Medicine; Visit Provider Physician Assistant
DX: J06.9 Acute upper respiratory infection, unspecified (principal); Z13.9 Encounter for screening, unspecified

== ENCOUNTER → 2025-06-28 07:34 | Outpatient (BNVA) | payer MEDICARE, SELFPAY | PROVIDERS: PCP Internal Medicine; Visit Provider Physician Assistant | DX: J06.9 Acute upper respiratory infection, unspecified (principal) | CPT/HCPCS: 87880; 99212 ==

== ENCOUNTER 2025-07-03 09:10 | Outpatient (AMB) | payer MEDICARE, SELFPAY ==
--- NOTE | 2025-07-03 09:21 | A.OFFVIS_ITS ---
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 Most recent HbA1c: 7.8%, 05/22/2025 Done at [facility] Random Glucose: 227 mg/dL [place] Required: No Accompanied by: Self / Same As Patient Allergies No Known Allergies Allergy (Verified 07/03/25 09:40) Medication List - Last Reconciled 07/03/25 by Nickie Toscano MD acarbose 50 mg PO DAILY amlodipine 10 mg PO DAILY aspirin 81 mg PO DAILY atorvastatin 40 mg PO DAILY benzonatate 200 mg PO BEDTIME PRN blood-glucose sensor (FreeStyle Jose 3 Plus Sensor device) As directed chlorthalidone 25 mg PO DAILY dapagliflozin propanediol (Farxiga) 5 mg PO DAILY fenofibrate micronized 134 mg PO DAILY insulin glargine (Lantus Solostar U-100 Insulin) 50 units subcut BID insulin lispro (Humalog KwikPen (U-100) Insulin) See Protocol sliding scale with meals Fog BG 100-149 8 units 150-199 10 units 200-249 12 units 250--299 14 units 300-349 16 units >350 18 units irbesartan 75 mg PO DAILY lorazepam 1 mg PO BID PRN meclizine 25 mg PO TID PRN metformin 850 mg PO BID metoprolol succinate ER 50 mg PO DAILY pen needle, diabetic (Ultra-Fine Pen Needle) As directed semaglutide (Ozempic) 0.25 mg (0.368 mL) subcut QWEEK sertraline 100 mg PO DAILY HPI Comments Details: The patient is a 75 year old male presenting for diabetes follow up Past medical history HTN, HLD, obesity, TOÑO fatty liver Current medication Lantus 50u bid -compliant Metformin 850mg twice daily Farxiga 5mg Humalog SS 100-149 6 units 150-199 8 units 200-249 10 units 250-299 12 units 300-349 14 units >250 16 units Not doing ozempic-copay is 100s Started acarbose with dinner one month ago CGM reviewed GMI 7.3%, TGT 71%, high 29%, 0% low from GMI 7.6% 53% TGT 46% high 1% low. He notes the acarbose has helped him avoid lows A1C 7.8% 05/22/25 at [facility] Eye exam 09/2024- denies significant diabetic changes ROS CONSTITUTIONAL: Denies weight loss, fever and chills. HEENT: Denies changes in vision and hearing. RESPIRATORY: Denies SOB and cough. CV: Denies palpitations and CP GI: Denies abdominal pain, nausea, vomiting and diarrhea. : Denies dysuria and urinary frequency. MSK: Denies new myalgia and joint pain. SKIN: Denies rash and pruritus. NEUROLOGICAL: Denies headache PSYCHIATRIC: Denies recent changes in mood. PHYSICAL EXAM: GENERAL: Alert and oriented x 3. NAD EYES: EOMI. Anicteric. HENT: Left TM perforation No scleral icterus. No cervical lymphadenopathy. LUNGS: Clear to auscultation bilaterally. CARDIOVASCULAR: Regular rate and rhythm. No murmur. No JVD. ABDOMEN: Soft, non-tender +bs EXTREMITIES: No edema. Non-tender. SKIN: No rashes or lesions. Warm. NEUROLOGIC: No focal neurological deficits. CN II-XII grossly intact PSYCHIATRIC: Cooperative. Appropriate mood and affect [facility] Medical History (Updated 07/03/25 @ 11:28 by Nickie Toscano MD) Venous insufficiency Uncontrolled diabetes mellitus with hyperglycemia Renal cyst TOÑO (obstructive sleep apnea) Nuclear sclerosis of both eyes Mild depression Left inguinal hernia IBS (irritable bowel syndrome) Hypertension associated with diabetes Hypercholesteremia GERD (gastroesophageal reflux disease) Generalized OA Former tobacco use Fatty liver disease, nonalcoholic Erectile dysfunction Diabetes with retinopathy Diabetes Chronic vertigo Anxiety Aneurysm, thoracic aortic Vertigo Surgical History S/P total knee arthroplasty H/O endoscopy Hx of colonoscopy H/O total knee replacement Hx of cholecystectomy Social History Alcohol intake: never Patient Tobacco Use Status: Never used Tobacco Physical Exam Vital Signs: Last Vital Signs Pulse 60 07/03/25 09:35 BP 112/78 07/03/25 09:35 Pulse Ox 96 07/03/25 09:35 Oxygen Delivery Method Room Air 07/03/25 09:35 BMI result Body Mass Index 34.8 Results Reviewed Results Reviewed: Laboratory Last Values Glucose (Clinic) 227 mg/dL (60-115) H 07/03/25 09:39 Assessment & Plan Assessment & Plan (1) Uncontrolled diabetes mellitus with hyperglycemia: Code(s): E11.65 - Type 2 diabetes mellitus with hyperglycemia Category: Medical Qualifiers: Diabetes mellitus type: type 2 Qualified Code(s): E11.65 - Type 2 diabetes mellitus with hyperglycemia (2) Hypoglycemia: Code(s): E16.2 - Hypoglycemia, unspecified Category: Medical (3) Diabetes with retinopathy: Code(s): E11.319 - Type 2 diabetes mellitus with unspecified diabetic retinopathy without macular edema Category: Medical Qualifiers: Diabetes mellitus type: type 2 Diabetes mellitus supervisor intermediates insulin use: with supervisor intermediates use Diabetic retinopathy severity: with unspecified retinopathy severity Diabetes mellitus macular edema: macular edema presence unspecified Laterality: unspecified laterality Qualified Code(s): E11.319 - Type 2 diabetes mellitus with unspecified diabetic retinopathy without macular edema; Z79.4 - shelter (current) use of insulin Plan Type 2 diabetes Still uncontrolled but improving glycemic control more importantly acarbose has helped him stop getting overnight hypoglycemia Increase Lantus to 52 bid and increase metformin to 1000mg twice daily Treat hypoglycemia by rules of 15s UTD diabetic eye exam Return in 2 months for A1C and DM review Medications: New metformin 1,000 mg PO BID 180 tabs 3RF Changed From insulin glargine (Lantus Solostar U-100 Insulin) 50 units subcut BID To insulin glargine (Lantus Solostar U-100 Insulin) 52 units subcut BID Discontinued semaglutide (Ozempic) for 4 weeks Discontinued Reason: Doctor's Order 0.25 mg (0.368 mL) subcut QWEEK 3 mL 3RF Coding Level of Care Code Est Pt Level 4 (17232) Diagnoses Uncontrolled type 2 diabetes mellitus with hyperglycemia E11.65 Diabetes mellitus type: type 2 Hypoglycemia E16.2 Type 2 diabetes mellitus with retinopathy, with long-term current use of insulin, macular edema presence unspecified, unspecified laterality, unspecified retinopathy severity E11.319; Z79.4 Diabetes mellitus type: type 2 Diabetes mellitus usp insulin use: with supervisor intermediates use Diabetic retinopathy severity: with unspecified retinopathy severity Diabetes mellitus macular edema: macular edema presence unspecified Laterality: unspecified laterality
[2025-07-03 09:35] VITALS: BP 112/78; PULSE 60; O2SAT 96; BMI 34.8
[2025-07-03 09:43] LABS: Glucose, Whole Blood 227 mg/dL (60-115)
--- OUTSIDE RECORDS SUMMARY | 2025-07-03 17:04 | XMS_ITS | Patient Health Record ---
Author Organization [facility] Address [address] [facility] [address] [place] [address] Care Team Providers Care Ingredient Mixer Name Role Phone Divya Dan Primary Care Provider NADIA Graham Unavailable [phone] Allergies No Known Allergies Reason For Referral [...] tablet Orally Once a day Active Nystatin 299422 UNIT 1 tablet Orally Thr ee times a day Active Doxycycline Monohydrate 100 MG 1 tablet Orally Once a day Not-Taking Problems Problem Type SNOMED Code ICD Code Onset Dates Problem Status W/U Status Risk Notes Problem Peripheral circulatory disorder associated with diabetes mellitus ([id number]) Type 2 diabetes mellitus with other circulatory complications (E11.59) Active confirmed Vital Signs Heart Rate 58 /min 07/16/2024 Temperature 97.4 degrees Fahrenheit 07/16/2024 Respiratory Rate 16 /min 07/16/2024 Height 5ft 10in in 07/16/2024 Weight 244.5 lbs 07/16/2024 BMI 35.08 kg/m2 07/16/2024 Encounters Encounter Location Date Provider Diagnosis [facility] [address] [address] 07/16/2024 NADIA RODRIGUEZ Ingrown right big toenail L60.0 ; Pain in right toe(s) M79.674 ; Onychomycosis B35.1 and Type 2 diabetes mellitus with other circulatory complications E11.59 [facility] [address] [address] 07/23/2024 NADIA RODRIGUEZ Assessments Encounter Date Diagnosis [...] Date [employer] [address] [facility] [place] [address] [place] [address] [id number] Abiodun Banerjee Self - patient is the [...]
--- OUTSIDE RECORDS SUMMARY | 2025-07-03 17:04 | XMS_ITS | Clinical Summary ---
Author Organization [facility] Address [address] [place] [address] Care Team Providers Care Reservation Manager Name Role Phone Unavailable Primary Care [...]
--- OUTSIDE RECORDS SUMMARY | 2025-07-03 17:04 | XMS_ITS | Data Portability ---
Author Organization [place] - [facility], Allergy Address [address] [address] Care Team Providers Care Top Loader Name Role Phone DAWIT PICHARDO Primary Care [...] recorded. Referral neurologis t referral 2024 025 [facility] Neurology Scheduling, [address], [place], [address], 13:41:42 Procedures None recorded. Surgeries None recorded. Imaging MRI, brain + internal auditory canal, w/wo contrast - next available. ...IAC protocol 2024 025 [facility] ([facility] [address] [place], [address], 12:11:03 Medication Orders None recorded. Patient TargetsNo [...] ation record ed. amaury [facility] [address] [place], [address], 12/24/2024 12:44:28 Result Notes None recorded. Problems Name Problem SNOMED Code Status Onset Date Resolution Date Notes Provider Name and Address Organization Details Recorded Time Bilateral tinnitus 32608989266 02 Active 2018 Tinnitus, bilateral ; Note: Date Diagnosed : 02/13/2019 3:14 PM (H93.13) VERONIQUE BENJAMNI PA-C [address] [place] [address],[place] [address], [facility] [place], [address] , [facility] - [facility] 5 16:40:04 Dizziness and giddiness 110193145 Active 2018 Dizziness and giddiness ; Note: Date Diagnosed : 02/13/2019 3:14 PM (R42) Not Available [facility] 4 02:29:06 Sensorine ural hearing loss of bilateral ears 431346374 Active 2018 Sensorine ural hearing loss, bilateral ; Note: Date Diagnosed : 02/13/2019 3:14 PM (H90.3) Not Available [facility] 4 02:28:45 Sudden idiopathi c hearing loss 461165559 Active 2018 Sudden idiopathi c hearing loss, left ear; Note: Date Diagnosed : 02/13/2019 3:43 PM (H91.22) Not Available [facility] 4 02:28:46 Tinnitus 86229510 Active 2024 VERONIQUE BENJAMIN PA-C [address], [place], [place], [address] , [facility] - [facility] 5 13:01:42 Sensorine ural hearing loss 06740136 Active 2024 VERONIQUE BENJAMIN PA-C [address],[place] [facility], [place], [place], [address] , [facility] - [facility] 5 13:01:42 Asymmetri marta sensorine ural hearing loss 898828172 Active 2024 VERONIQUE BENJAMIN PA-C [address], [place], [place], [address] , [facility] - [facility] 5 13:02:39 Periphera l vertigo 70376838 Active 2024 VERONIQUE BENJAMIN PA-C [address], [place], [place], [address] , [facility] - [facility] 5 15:33:54 Dizziness 748977843 Active 2024 VERONIQUE BENJAMIN PA-C [address], [place], [place], [address] , [facility] 5 16:34:48 Problem Notes None recorded. Medical Equipment None Reported. Allergies No known drug allergies Medications Name Sig Start Date Stop Date Status Note LastModified by Organization Details LastModified Time pioglitaz one 15 mg tablet 2018 active Medicati on ID: [id number] D uration Value: 90 Brand Name: caity [...] mg tablet 02/24 completed Medicati on ID: [id number] P chasidy d By Name: Channing Celis [...] mg tablet 2018 active Medicati on ID: [id number] D uration Value: 90 Brand Name: lisinopr [...] mg tablet 2018 active Medicati on ID: [id number] D uration Value: 90 Brand Name: furosemi de Send Method: E-Prescr ibed Sub s Allowed: subs OK Speci al Instruct ion: TAKE 1 TABLET BY MOUTH EVERY DAY Medi cationGe nericNam e: furosemi de Not Available Not Available Not Available metoprolo l succinate ER 25 mg tablet,ex tended release 24 hr 2018 active Medicati on ID: [id number] D uration Value: 90 Brand Name: metoprol [...] aerosol inhaler 2018 active Medicati on ID: [id number] D uration Value: 17 Brand Name: ProAir [...] ous pen injector active Medicati on ID: [id number] D uration Value: 28 Brand Name: Carrie [...] Available No t Available FreeStyle [place] 3 [place] USE DIRECTED active Not Available Not Available No t Available Vitals Date Recorded Body height Body mass index (BMI) Body weight Provider Name and Address Organization Details Last Updated DateTime 12/12/2024 177.8 cm 34.4 kg/m2 872452.17 g Linda Deluca [place] - [facility] 12/12/2024 10:14:34 Social History None recorded. [...] Disorder N Anesthesia Complications N Heart Attack (AR) N Other Skin Condition N Diabetes Y [...] ICD10 Code Diagnosis IMO Codes Diagnosis Note [id number] VERONIQUE BENJAMIN PA-C [facility] [address] [place] [address] 12/12/2024 09:38:22 12/12/2024 10:46:43 Asymmetrical sensorineural hearing loss 462842113 H90.3 065092 Dizziness 589427341 R42 52864 Non-otolog ic dizziness and constant lightheade dness Bilateral tinnitus 73660 56810 102 H93.13 095052 Health Concerns Section Related Observation LastModified by Organization Detai ls LastModified Time None Recorded Concern Status LastModified by Organization Details LastModified Time None Recorded Advance Directives Directive None Recorded Payers Insurance Date Sequence Insurance Name Policy Number Policy Khoury Covered Member ID Khoury Member ID Guarantor Name 12/13/2024 1 [employer] - MEDICARE ADVANTAGE PLAN (MEDICARE REPLACEMENT HMO) [id number] 2 Abiodun Banerjee [id number] Abiodun Banerjee Notes Date Note Type Note [...] hearing loss and vertigo. VERONIQUE BENJAMIN PA-C [address] [place] [address],[place] [address], [place], [address], [facility] - [facility] 12/12/2024 16:40:48
--- OUTSIDE RECORDS SUMMARY | 2025-07-03 17:04 | XMS_ITS | Clinical Summary ---
Author Organization [facility] it Address [address] [place] [address] Care Team Providers Care Photographic Developer And Printer Name Role Phone Divya Dan MD Primary [...] COMMENT: Left - 2009 Thoracic aortic aneurysm ([facility] V24) 11/29/2018 DX:Thoracic aortic aneurysm (HCC); COMMENT: [...] 1 Schizophrenic, penile cancer? Brother 2 Alive NE 45 , CABG 55 ; dementia Daughter [...] age to complete this topic Care Teams Photographic Developer And Printer Relationship Specialty Start Date End Date Divya Dan MD PCP - General 07/21/22
== END 2025-07-03 10:12 | disposition home or self-care (01) ==
LOC: HO.ENCR 09:10
PROVIDERS: PCP Internal Medicine; Visit Provider Internal Medicine
DX: E11.65 Type 2 diabetes mellitus with hyperglycemia (principal); E16.2 Hypoglycemia, unspecified; E11.319 Type 2 diabetes mellitus with unspecified diabetic retinopathy without macular edema; Z79.4 Long term (current) use of insulin

== ENCOUNTER → 2025-07-03 09:10 | Outpatient (BNVA) | payer MEDICARE, SELFPAY | PROVIDERS: PCP Internal Medicine; Visit Provider Internal Medicine | DX: E11.65 Type 2 diabetes mellitus with hyperglycemia (principal); E11.319 Type 2 diabetes mellitus with unspecified diabetic retinopathy without macular edema; E16.2 Hypoglycemia, unspecified; Z79.4 Long term (current) use of insulin | CPT/HCPCS: 82947; 99212 ==